=== PATIENT | male | born 1940 | race Caucasian/White ===

== ENCOUNTER → 2017-01-05 | Day surgery (SDC) | payer OTHER ==
[~2017-01-05] VITALS: Ht 175.3 cm; Wt 75.5 kg
[~2017-01-05] MED LIST: ACETAMINOPHEN 325 MG TAB PO PRN; ASCA500 PO; ATROPINE SULFATE 0.1 MG/ML 5ML SYR IV PRN; CALC-388 PO; FENTANYL CITRATE INJ 50 MCG/1 ML 2 ML VIAL ONE; FLUT0.15 INH; Garlic PO; HEPARIN SOD (PORCINE) 1000 UNIT/ML 10 ML VIAL ONE; LACT12CR TOP; LATA0.5S OP; MIDAZOLAM HCL 1 MG/ML 2ML VIAL ONE; MULTTAB58 PO; NITROGLYCERIN/D5W 100MCG/ML 20ML SYR ONE; NiCARDipine HCL INJ 2.5 MG/ML 10 ML AMP ONE; PRAV20TA PO; SODIUM CHLORIDE 0.9% 1000ML 1,000 ML IV SCH; SODIUM CHLORIDE 0.9% 1000ML 250 ML IV PRN
[2017-01-05 07:23] VITALS: BP 152/85; PULSE 70; TEMP 36.2; O2SAT 98; Ht 175.3 cm; Wt 75.5 kg
--- NOTE | 2017-01-05 09:00 | History & Physical Bridge Note ---
H&P Re-Evaluation Bridge Note: I have examined the patient, reviewed the History & Physical and in the interval since the performance of the History & Physical I have noted the following changes of clinical significance: No changes noted
--- NOTE | 2017-01-05 09:01 | Procedure Note ---
Pre-Mod Sedation Assessment General Date of Moderate Sedation: Jan 05, 2017. Vital Signs: Vital Signs Past 12 Hours Date Time Temp Pulse Resp B/P (MAP) Pulse Ox O2 Delivery O2 Flow Rate FiO2 01/05/17 07:23 36.2 70 16 152/85 98 Room Air Review Cardiovascular: regular rate, rhythm, no edema, no gallop, no murmur Abdomen: normal bowel sounds Lungs: lungs clear Airway Class: II Pre-Sedation Airway Assessment Oral Cavity: WNL Able to Visualize Vocal Cords: Yes Short Thick Neck: No Hx of Sleep Apnea: No Smoking Status: Never Smoker Mallampati Classification: Class II ASA Classification: Class II Procedure Planning Contraindications-for Mod Sed: None Notes The planned sedation has been discussed with the patient and consent obtained. I have identified the patient, determined the appropriateness of sedation and have assessed the patient immediately prior to the procedure. All medicine(s) and interventions are by my order.
--- NOTE | 2017-01-05 09:18 | [facility] Post Operative Brief Note ---
Preliminary Procedure Note Procedure Date Jan 05, 2017. Pre-Procedure Diagnosis Angina AUC Score 7 Post-Procedure Diagnosis Normal Coronary Arteries Procedure(s) Performed Coronary Angiography, Left Heart Cath, LV Angiography Fur Feeder Dr. Burak Ruiz Dj Instructor(s) Lulu Santos Estimated Blood Loss None Medication(s) Fentanyl (12.5 mcg IV), Heparin (5000u IV), Nicardipine (300mcg intraarterial after sheath), Versed (1mg IV), Lidocaine 1% (local infiltration) Preliminary Findings Right dominant coronary anatomy Small left coronary system Type 1 LAD with moderate sized D2 Ramus moderate LCX very small with single high marginal RCA Very large and dominant with large PDA and PV reaching well around the apex No coronary artery disease LV normal EF 65% Recommendations Medical therapy and/or Counseling Specimens None Fluids (cc crystalloids) 75 Procedural Complication(s) None Disposition [facility] Holding/Recovery
--- NOTE | 2017-01-05 11:04 | CARDIAC CATH REPORT ---
DATE OF PROCEDURE: 01/05/2017. REFERRING: Dr. Montes De Oca. PRIMARY CARE PHYSICIAN: Dr. Figueroa. INDICATIONS: Chest pain, familial history of myocardial infarction. PROCEDURE: Left heart catheterization, coronary LV artery angiography via right radial approach. BRIEF CARDIAC HISTORY: The patient is a 76-year-old male with a familial history of coronary artery disease and infarct related myocardial infarction and of brother recent the patient has been experiencing exertional chest pain and dyspnea in class 2-3+ category with increasing symptoms and severity. He is referred now for diagnostic cardiac catheterization. ACCESS: Right radial artery. CATHETERS: A 6-[place] long glide sheath, 5-[place] brachial 3.5, 5-[place] straight pigtail. CONTRAST: Nonionic 115 mL Visipaque. IV FLUIDS: 70 mL normal saline. SEDATION: The patient received 1 mg IV Versed and 12.5 mcg fentanyl with start time of 8:34 and end time of 8:55. CARDIAC MEDICATIONS: The patient had local infiltration access site with 1% lidocaine. After arterial sheath inserted patient received 300 mcg intra-arterial injection of nicardipine. After central access gained, 5000 units IV heparin was given. COMPLICATIONS: None. RADIATION EXPOSURE: 5.4 minutes of fluoroscopy with 1091 milligrays, DAP score 72-91. RESULTS: CORONARY ANGIOGRAPHY: The patient has a right dominant coronary anatomy. Left coronary anatomy is modest to small in caliber: LEFT MAIN: Left main is short and trifurcates to give rise to left anterior descending and a moderate size ramus intermedius and a small left circumflex. There is minimal calcification left main and no coronary artery disease. LEFT ANTERIOR DESCENDING: Left anterior descending is a type 1 in distribution. Gives rise to a large septal branch in its proximal third, a small diagonal shortly after the septal branch and a moderate size diagonal in the mid portion. Left anterior descending descends past the second diagonal only very small in caliber and does not reach the apex. The diagonal parallels the LAD and is larger in caliber. There is no disease in the left anterior descending. RAMUS INTERMEDIUS: This is a moderate caliber vessel which bifurcates and is free of disease. LEFT CIRCUMFLEX: Left circumflex is very small and diminutive in size and distribution and gives rise to a small caliber high marginal branch shortly after his origin and then bifurcates into 2 small posterior ventricular branches. RIGHT CORONARY ARTERY: The right coronary is very large in caliber and long in distribution. It gives rise to a sinoatrial branch shortly after its origin, a small acute marginal branch and at the AV groove a long posterior descending artery which reaches well beyond the apex then continues along the AV groove as a long bifurcating posterior ventricular branch with branches post-ventricular branch also reaching well beyond the apex. There is no disease in the right coronary artery. LEFT VENTRICULAR ANGIOGRAPHY: The left ventricle was nondilated. LV systolic function was normal, EF 65%. There were no wall motion abnormalities. The aortic root was normal in size. There is no mitral insufficiency. HEMODYNAMICS: Initial aortic root pressure is 143/66 with a mean of 97. LV pressure was 152/2, end diastolic pressure of 10. Following LV angiography, LV pressure was 154/16. On pullback to the aortic root, there is no transaortic valve. Closing aortic pressure was 157/76, mean of 111. FINAL IMPRESSIONS: 1. Right dominant coronary anatomy with diminutive left coronary system. 2. No coronary artery disease. 3. Normal hyperdynamic left ventricular function, ejection fraction 65%. 4. Mild systolic hypertension. RECOMMENDATIONS: Continued medical management and risk factor modification.
--- NOTE | 2017-01-05 11:31 | Discharge Instructions ---
Discharge Instructions Procedure Procedure Date: Jan 05, 2017. Reason for Visit: Left Heart Cath , Abnormal Stress Test Dr. Ruiz. Discharge Discharge Date: Jan 05, 2017. Discharge Diagnosis: Right dominant coronary anatomy without coronary artery disease Last Recorded Wt (Kilograms): 75.5 Anesthesia Post Anesthesia Instructions: If you have had General Anesthesia or IV Sedation: * Do not drive today. * Resume driving when surgeon permits. * Do not make important decisions or sign legal documents today. * Call surgeon for: 1. Temperature elevations greater than 101 degrees F. 2. Uncontrollable pain. 3. Excessive bleeding. 4. Persistent nausea and vomiting. 5. Medication intolerance (nausea, vomiting or rash). * For nausea and vomiting use only clear liquids such as: tea, soda, bouillon until nausea subsides, then gradually increase diet as tolerated. * If you have any concerns or questions, call your surgeon's office. If physician is unavailable and it is an emergency, call 911 or go to the nearest emergency room. Instructions Activity Recommendations: limitations as noted below Recommended Home Diet: resume previous diet Allergies: Coded Allergies: No Known Allergies (Unverified , 10/04/15) Provider Instructions ACTIVITY RECOMMENDATIONS: Excess manipulation of the wrist should be avoided for the next 24-48 hours. * No lifting over 2 pounds (approximately a 1/2 gallon of milk) with the utilized arm for 24 hours. * No strenuous activity such as bowling or tennis for 3 days. * Keep the site of the procedure covered with a bandage for 24 hours. *You may shower the day after the procedure. Do not take a tub bath or submerge the puncture site in water for the next 3 days. *Do not operate any motorized equipment for 3 days. SPECIAL CARE INSTRUCTIONS: The site may be slightly bruised and sore following your procedure. Should any of the following occur, contact the Dr. who performed your procedure. 1. Redness/inflammation, swelling, chills, or fever, or colored drainage at procedure site within 3-7 days after your procedure. 2. Coldness, discoloration, ongoing numbness, severe pain, or swelling. Expect mild tingling of hand and tenderness at the puncture site for up to three days. If this persists beyond three days, or other symptoms develop, notify the Dr. who performed your procedure. BLEEDING: If the procedure site on your wrist begins to bleed, do not panic 1. Place 1 or 2 fingers firmly just slightly above the insertion site to stop the bleeding. You may be able to feel your pulse as you hold pressure. 2. Lift your finger after 5 minutes to see if the bleeding has stopped. 3. Once the bleeding has stopped, gently wipe the wrist area clean with a bandage. * If the bleeding from your wrist does not stop after 10 minutes, or if there is a large amount of bleeding or spurting, call 911 (do not drive yourself to the hospital). SKIN IRRITATION: * You may experience some redness and/or swelling in the area where radiation was administered. If any skin irritation occurs, please contact your family physician. FOLLOW UP VISIT: Keep any scheduled doctor appointments. Follow Up Follow-up with: Dr Montes De Oca as scheduled Vidya Hickey Recommendations: Call your doctor if: * Temperature above 101 degrees * Pain not relieved by pain medicine ordered * There is increased drainage or redness from any incision * You have any unanswered questions or concerns. Your Doctors Instructions noted above were prepared by provider Burak Ruiz. Patient Signature Section: Patient Instructions Signature Page Victorino Guevara Patient (or Guardian) Signature/Date: I have read and understand the instructions given to me by my caregivers. Caregiver/RN/Doctor Signature/Date: The above-named patient and/or guardian has received patient instructions on this date. + Original Patient Signature Page (only) stays with chart. Please make copy for patient.
[2017-01-05 11:55] VITALS: BP 132/56; PULSE 64; O2SAT 96
== END | disposition home or self-care (01) ==
LOC: C.CATH 06:53
PROVIDERS: ATTEND Internal Medicine Cardiovascular Disease
DX: R94.39 Abnormal result of other cardiovascular function study (principal); R07.9 Chest pain, unspecified; Z82.49 Family history of ischemic heart disease and other diseases of the circulatory system; E78.5 Hyperlipidemia, unspecified; Z86.010 Personal history of colon polyps

== ENCOUNTER 2022-05-17 20:05 | Inpatient (IN) ==
[2022-05-17 21:18] LABS: Albumin Globulin Ratio 1.1 (0.9-2); BUN Creatinine Ratio 13.6 (10-20); Bilirubin,Total 0.9 mg/dl (0.2-1.0); Calcium 9.3 mg/dl (8.5-10.1); Est GFR (African American) 58.6 ml/min; Est GFR (Non-African American) 50.6 ml/min; Globulin 3.8 gm/dl (2.5-4.0); Potassium 4.7 mmol/L (3.5-5.1); Total Protein 7.8 gm/dl (6.0-8.3)
[2022-05-17 21:23] LABS: Hemoglobin 17.1 g/dl (14.0-18.0); Mean Corpuscular Hemoglobin 30.9 pg (25.0-34.0); Mean Corpuscular Hgb Conc 33.5 g/dL (32.0-36.0); Mean Corpuscular Volume 92.2 fL (80.0-100.0); Mean Platelet Volume 9.7 fL (9.4-12.4); Platelet Count 284 K/uL (130-400); RDW Coefficient of Variation 12.5 % (11.5-14.5); RDW Standard Deviation 42.5 fL (36.4-46.3); Red Blood Count 5.53 M/uL (4.63-6.08); White Blood Count 14.15 K/ul (4.8-10.8)
[2022-05-17 21:32] LABS: Troponin I High Sensitivity 250.3 pg/ml (0-20)
[2022-05-17 22:07] LABS: Basophils # (auto) 0.03 K/uL (0-0.2); Basophils % (auto) 0.2 %; Immature Granulocytes # (auto) 0.06 K/uL (0.00-0.02); Immature Granulocytes % (auto) 0.4 %; Lymphocytes # (auto) 0.64 K/uL (1.2-3.4); Lymphocytes % (auto) 4.5 %; Monocytes # (auto) 0.57 K/uL (0.24-0.82); Neutrophils # (auto) 12.85 K/uL (1.4-6.5); Neutrophils % (auto) 90.9 %
[2022-05-17] MEDS ORDERED: SODIUM CHLORIDE 0.9% 1000ML 1,000 ML IV ONE (22:32)
[2022-05-17] MEDS ORDERED: CARBIDOPA/LEVODOPA 25/100MG TAB PO SCH (22:35)
[2022-05-17 23:01] LABS: Influenza A virus by PCR Negative (Neg); Influenza B virus by PCR Negative (Neg); RSV by PCR Negative (Neg); SARS CoV2 RNA(COVID-19) Ceph NEGATIVE (Negative)
[2022-05-17 23:18] LABS: Lipase < 3 U/L (11-82); Magnesium 2.1 mg/dl (1.7-2.4); Phosphorus 3.3 mg/dl (2.5-4.9)
[2022-05-18] MEDS ORDERED: OPTIRAY 320 500ml IV ONE (00:19)
[2022-05-18] MEDS ORDERED: Heparin IV Adult Wt-Based Standard WITH Bolus Protocol IV STA (01:20)
[2022-05-18] MEDS ORDERED: HEPARIN SOD (PORCINE) 1000 UNIT/ML IV ONE (01:36)
[2022-05-18] MEDS ORDERED: ONDANSETRON INJ 2 MG/ML 2 ML VIAL IV STA (01:37)
[2022-05-18] MEDS ORDERED: ACETAMINOPHEN 1,000 MG/100 ML VIAL IV STA (01:37)
[2022-05-18] MEDS ORDERED: FAMOTIDINE 20MG IV PUSH 20 MG/5 ML SYR IV STA (01:37)
[2022-05-18] MEDS ORDERED: LACTATED RINGER'S 1,000 ML IV SCH (01:45)
--- NOTE | 2022-05-18 01:50 | History & Physical Report ---
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 ( has expressed interest in NOAC Rx for patient upon discharge.) Bowel rest, continue NGT decompression Surgery consult Re: Bowel obstruction DVT prophylaxis. IV heparin Full code as per , Ms. Edda Guevara. She requests updates from providers through [phone]. Family requesting for patient to be set up with [facility] provider or PCP upon discharge. Patient will not be able to follow-up with former PCP Dr. Figueroa at [address] [place] [address] as per . Text document was generated using [employer] voice recognition software. It may contain grammatical or spelling errors. Kindly contact undersigned for clarification of any documentation item in question. History of Present Illness Chief Complaint: Abdominal pain Primary Care Provider: Oleksandr Figueroa, History obtained from patient, family, and records. 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 Last bowel movement was 2 days ago as per . Increasing weakness last night with slight confusion. Patient denies chest pain, SOB. Does not move a lot as per secondary to Parkinson's disease. Patient brought to the ER for evaluation. NGT inserted for bowel obstruction. IV heparin initiated for pulmonary embolism. 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 Allergies Allergy/AdvReac Type Severity Reaction Status Date / Time No Known Allergies Allergy Verified 05/18/22 02:11 Home Medications Medication Instructions Recorded Confirmed Type ascorbic acid (vitamin C) 500 mg 500 mg PO DAILY 03/08/20 05/18/22 History tablet (Vitamin C) calcium carbonate 500 mg calcium 500 mg PO DAILY 01/17/22 05/18/22 History (1,250 mg) tablet fish, borage, flaxseed oils-omega 1 cap PO DAILY 01/17/22 05/18/22 History 3,6,9 comb no.1 1,200 mg capsule ([place] 3-6-9) latanoprost 0.005 % eye drops 1 drp OPB HS 01/17/22 05/18/22 History stzqalupiltu-wvt-oinus acid-vit 1 tab PO DAILY 01/17/22 05/18/22 History K-lycop 400 mcg-20 mcg-370 mcg tablet (Men's 50 Plus Multivitamin) omeprazole 20 mg capsule,delayed 20 mg PO DAILYBB 01/17/22 05/18/22 History release saw palmetto 450 mg capsule 0 mg PO DAILY 01/17/22 05/18/22 History suvorexant 5 mg tablet (Belsomra) 5 mg PO HS PRN Insomnia 01/17/22 05/18/22 History carbidopa 25 mg-levodopa 100 mg 2 tab PO TID 05/18/22 05/18/22 History tablet carbidopa ER 25 mg-levodopa 100 mg 1 tab PO HS 05/18/22 05/18/22 History tablet,extended release polyethylene glycol 3350 17 gram 17 g PO DAILY 05/18/22 05/18/22 History oral powder packet (Miralax) sennosides 8.6 mg tablet (senna) 8.6 mg PO DAILY 05/18/22 05/18/22 History trazodone 50 mg tablet 50 mg PO DAILY 05/18/22 05/18/22 History Past Med/Surg History Medical History CKD (chronic kidney disease) stage 3, GFR 30-59 ml/min HLD (hyperlipidemia) No pertinent family history Parkinson disease Prediabetes Surgical History S/P appendectomy Family History Other Family history non-contributory Social History Smoking Status: Unknown if ever smoked Preferred Language: Setswana Current Living Situation[facility] Comment[facility]: Yes Safety Concerns: Feels Safe At This Time Review of Systems Review of Systems: As per HPI, all other systems reviewed and negative Physical Exam Physical Exam: GENERAL: Slightly uncomfortable, slightly hard of hearing, no respiratory distress SKIN: Normal color, warm HEENT: [place] palpebral conjunctivae, no ptosis, dry buccal mucosa, NGT in place NECK : Supple, no tenderness CHEST : CTA, no tenderness HEART : RRR, no obvious murmurs ABDOMEN: Some distention, central abdominal tenderness EXTREMITIES : Minimal LE swelling (right greater than the left ) without tenderness, no other conspicuous deformities noted NEUROLOGIC : Coherent, no facial asymmetry, slightly hard of hearing, pill- rolling tremors, bradykinesia, gait and stance not assessed Results & Data Results & Data ([facility]) Vital Signs (Past 12 Hours) Vital Signs Temp Pulse Resp BP Pulse Ox O2 Del Method 05/18/22 01:00 87 14 167/94 H 100 05/18/22 00:30 108 H 20 170/90 H 99 05/17/22 23:30 88 16 151/99 H 100 05/17/22 23:00 90 17 148/99 H 100 05/17/22 22:30 140/96 05/17/22 22:00 88 16 146/94 H 100 05/17/22 21:30 91 H 15 160/93 H 100 05/17/22 21:00 96 H 16 143/89 H 100 05/17/22 20:41 92 H 15 144/95 H 100 05/17/22 20:14 37 C 102 H 18 139/94 100 Room Air Laboratory Results Laboratory Results WBC 14.15 K/ul (4.8-10.8) H 05/17/22 20:20 RBC 5.53 M/uL (4.63-6.08) 05/17/22 20:20 Hgb 17.1 g/dl (14.0-18.0) 05/17/22 20:20 Hct 51.0 % (40.1-51.0) 05/17/22 20:20 MCV 92.2 fL (80.0-100.0) 05/17/22 20:20 MCH 30.9 pg (25.0-34.0) 05/17/22 20:20 MCHC 33.5 g/dL (32.0-36.0) 05/17/22 20:20 RDW Std Deviation 42.5 fL (36.4-46.3) 05/17/22 20:20 RDW Coeff of Jm 12.5 % (11.5-14.5) 05/17/22 20:20 Plt Count 284 K/uL (130-400) 05/17/22 20:20 MPV 9.7 fL (9.4-12.4) 05/17/22 20:20 Immature Gran % (Auto) 0.4 % 05/17/22 20:20 Neut % (Auto) 90.9 % 05/17/22 20:20 Lymph % (Auto) 4.5 % 05/17/22 20:20 [place] % (Auto) 4.0 % 05/17/22 20:20 Eos % (Auto) 0.0 % 05/17/22 20:20 Baso % (Auto) 0.2 % 05/17/22 20:20 Neut # (Auto) 12.85 K/uL (1.4-6.5) H 05/17/22 20:20 Lymph # (Auto) 0.64 K/uL (1.2-3.4) L 05/17/22 20:20 [place] # (Auto) 0.57 K/uL (0.24-0.82) 05/17/22 20:20 Eos # (Auto) 0.00 K/uL (0-0.50) 05/17/22 20:20 Baso # (Auto) 0.03 K/uL (0-0.2) 05/17/22 20:20 Immature Gran # (Auto) 0.06 K/uL (0.00-0.02) H 05/17/22 20:20 Sodium 139 mmol/L (136-145) 05/17/22 20:20 Potassium 4.7 mmol/L (3.5-5.1) 05/17/22 20:20 Chloride 103 mmol/L (98-107) 05/17/22 20:20 Carbon Dioxide 27 mmol/L (21-32) 05/17/22 20:20 Anion Gap 9 (3-11) 05/17/22 20:20 BUN 18 mg/dl (6-23) 05/17/22 20:20 Creatinine 1.32 mg/dl (0.6-1.4) 05/17/22 20:20 Est Cr Clr Drug Dosing 40.0 ml/min 05/17/22 20:20 Est GFR ( Amer) 58.6 ml/min 05/17/22 20:20 Est GFR (Non-Af Amer) 50.6 ml/min 05/17/22 20:20 BUN/Creatinine Ratio 13.6 (10-20) 05/17/22 20:20 Glucose 180 mg/dl (70-99(Fasting)) H 05/17/22 20:20 Calcium 9.3 mg/dl (8.5-10.1) 05/17/22 20:20 Phosphorus 3.3 mg/dl (2.5-4.9) 05/17/22 20:20 Magnesium 2.1 mg/dl (1.7-2.4) 05/17/22 20:20 Total Bilirubin 0.9 mg/dl (0.2-1.0) 05/17/22 20:20 AST 20 U/L (13-39) 05/17/22 20:20 ALT 7 U/L (7-52) 05/17/22 20:20 Alkaline Phosphatase 69 U/L (34-104) 05/17/22 20:20 Troponin I High Sens 250.3 pg/ml (0-20) H* D 05/17/22 20:20 Total Protein 7.8 gm/dl (6.0-8.3) 05/17/22 20:20 Albumin 4.0 gm/dl (3.4-5.0) 05/17/22 20:20 Globulin 3.8 gm/dl (2.5-4.0) 05/17/22 20:20 Albumin/Globulin Ratio 1.1 (0.9-2) 05/17/22 20:20 Lipase < 3 U/L (11-82) L 05/17/22 20:20 TSH 3.143 uIu/ml (0.300-4.500) 05/17/22 20:20 SARS-CoV-2 (PCR) NEGATIVE (Negative) 05/17/22 Unknown Influenza Type A (PCR) Negative (Neg) 05/17/22 Unknown Influenza Type B (PCR) Negative (Neg) 05/17/22 Unknown RSV (RT-PCR) Negative (Neg) 05/17/[address] head initial read: There is an old right cerebellar infarct. There is mild atrophy. No evidence for acute intracranial hemorrhage or transcortical infarct. CT chest initial read: There is extensive pulmonaryemboluswithin the right main pulmonaryarterywith components extending to superior, middle, and inferior branches. The right heart is mildlydilated and correlation with anyconcern for right heart strain is recommended. There is small volume asciteswhich is partiallyvisualized CT abdomen pelvis initial read: There is a severe small bowel obstruction with 2 focal points of narrowing noted (image 48 series 8 and image 51 series 8); this raises concern for a closed-loop obstruction. There is significant wall thickening of multiple loops of adjacent small bowel without discrete pneumatosis. There is moderate free fluid in the abdomen and pelviswhich is likelyreactive. EKG as per my interpretation :Rate 95, NSR, LAD, LAFB, no ischemia, PVCs
[2022-05-18] MEDS ORDERED: SODIUM CHLORIDE 0.9% 1000ML 1,000 ML IV ONE (01:51)
--- NOTE | 2022-05-18 02:16 | Emergency Department Note ---
Impression & Plan Pulmonary embolism, SBO (small bowel obstruction), Elevated troponin, Parkinson disease ED Provider Note NAME: DAVID DELGADO III AGE: 82 SEX: M ARRIVES VIA: Ambulance INFORMANT: Patient ED PROVIDER(S): Rock Barry MD CHIEF COMPLAINT: Chest pain PLAN: Disposition: Admit MEDICAL DECISION MAKING: The patient is a pleasant 82-year-old gentleman with a past medical history of Parkinson's, GERD, constipation who presents to the emergency department via EMS and then accompanied by his for evaluation of generalized weakness in the setting of reporting chest pain and abdominal pain this morning. The patient's reports she suspected this was related to his acid reflux and so he received his antacids and seemed to have some improvement but was weaker than usual and napping most of the day. She reports she went to get him up to walk into the kitchen but his legs were so weak that he slowly lowered to the ground and she was unable to keep him on his feet. She reports he lowered to the ground in a controlled manner as she was supporting him and so did not fall abruptly. She reports he is more fatigued with increased malaise than normal even with his Parkinson's. She denies any recent fevers, chills, cough, congestion. For constipation he has been taking MiraLAX and senna. He did move his bowels yesterday. On arrival the patient is fatigued but no acute distress, afebrile with stable vital signs. He appears clinically dry. Abdomen is soft with mild epigastric discomfort without discrete tenderness. EKG without overt acute ischemia. Chest x-ray negative for acute cardiopulmonary process per my preliminary review. WBC 14K nonspecific. H/H , consistent with patient's clinically dry appearance. Plateletes wnl. Chemistry without metabolic acidosis. Electrolytes without significant abnormality. LFTs are unremarkable. Lipase is not elevated. TSH within normal limits. High-sensitivity troponin was 250, nonspecific. Covid-19 PCR negative. Influenza and RSV PCR negative. CT of the head and CTA of the chest as well as CT of the abdomen pelvis were performed. Per preliminary stat read report findings of the CT of the chest demonstrate extensive pulmonary embolus within the right main pulmonary artery with components extending into the superior medial inferior branches. Note is made of mildly dilated right heart however the patient is hemodynamically stable. CT abdomen pelvis also demonstrates evidence of severe small bowel obstruction with 2 focal points of narrowing that are noted that raises the possibility of closed-loop obstruction. There is significant wall thickening of multiple loops of bowel but no discrete pneumatosis. There is moderate free fluid in the abdomen pelvis which is likely reactive. CT of the head demonstrates old right cerebellar infarct and mild atrophy but no acute findings. Upon reevaluation the patient was resting comfortably. Upon reexamination of his abdomen he had mild tenderness upon deep palpation but his abdomen is soft. He has had no vomiting during his emergency department visit and prior to CT imaging he had been given his oral dose of his Sinemet which he tolerated without difficulty. Thus, do not suspect closed-loop bowel obstruction at this time. I did review his results in detail with the patient and his . They do agree with plan for nasogastric tube as they would prefer to avoid any surgery if possible. She further adds that they do have an advanced directive but concurs that he would not want CPR. There is no known history of bleeding concerns and so heparin bolus and drip ordered to be initiated following placement of nasogastric tube. I did review his findings regarding a prior right cerebellar infarct and she reports that they were never aware of a prior stroke. She agrees that any symptoms related to this may have been masked by his chronic gait instability in the setting of his Parkinson disease. They agree with plan for admission for further management. [facility]. NG tube successfully placed and confirmed on KUB per my preliminary review. Triage Nursing notes reviewed and agree them. Prior medical records reviewed Vital Signs: reviewed Differential diagnosis: Cardiac ischemia, aortic dissection, pulmonary embolism, pneumothorax, pneumonia, pericarditis, myocarditis, esophageal rupture, GERD, cholecystitis, pancreatitis, musculoskeletal, as well as other pathologies. ER treatment provided: See below. Diagnostics interpreted by me: ECG: Sinus rhythm with PVCs, 95 bpm, no overt ST elevation or depression, QTC 427, QRS 72. Cardiac Monitoring: An order for continuous cardiac monitoring was placed and demonstrate Sinus rhythm with PVCs, 95 bpm Laboratory studies: See below Imaging studies: See below Consultation(s): [facility]. HPI: The patient is a pleasant 82-year-old gentleman with a past medical history of Parkinson's, GERD, constipation who presents to the emergency department via EMS and then accompanied by his for evaluation of generalized weakness in the setting of reporting chest pain and abdominal pain this morning. The patient's reports she suspected this was related to his acid reflux and so he received his antacids and seemed to have some improvement but was weaker than usual and napping most of the day. She reports she went to get him up to walk into the kitchen but his legs were so weak that he slowly lowered to the ground and she was unable to keep him on his feet. She reports he lowered to the ground in a controlled manner as she was supporting him and so did not fall abruptly. She reports he is more fatigued with increased malaise than normal ev en with his Parkinson's. She denies any recent fevers, chills, cough, congestion. For constipation he has been taking MiraLAX and senna. He did move his bowels yesterday. ROS: See above HPI for pertinent positives & negatives. A total of 10 systems reviewed and were otherwise negative. VITALS:See Below PHYSICAL EXAMINATION: GENERAL: Awake, alert, fatigued-appearing, in no distress HENT: Normocephalic, atraumatic. Oropharynx with dry mucous membranes and otherwise unremarkable. EYES: Normal conjunctiva. Sclera non-icteric. NECK: Supple. No nuchal rigidity. FROM. No JVD. RESPIRATORY: Clear to auscultation. CARDIAC: Regular rate, normal rhythm. Extremities warm and well perfused. Pulses equal. ABDOMEN: Soft, non-distended. Mild epigastric discomfort without discrete tenderness. No rebound or guarding. No masses. RECTAL: Deferred. MUSCULOSKELETAL: Chest examination reveals no tenderness. The back is symmetr ical on inspection without obvious abnormality. There is no CVA tenderness to palpation. No joint edema. LOWER EXTREMITIES: Calves are equal size bilaterally and non-tender. No edema. No discoloration. NEURO: Normal sensorium. No sensory or motor deficits noted. SKIN: No rash or jaundice noted. ED COURSE: Critical Care: I have personally spent greater than 75 minutes of critical care time in the direct management of this patient. This includes bedside care, interpretation of diagnostic studies, and testing, discussion with consultants, patient, and family members, and other required patient management activities. This 75 minutes is in excess of all separately billable procedures. Rock Barry MD Past Med/Surg History Medical History CKD (chronic kidney disease) stage 3, GFR 30-59 ml/min HLD (hyperlipidemia) No pertinent family history Parkinson disease Prediabetes Surgical History S/P appendectomy Family History Other Family history non-contributory Social History Smoking Status: Never smoker Preferred Language: Citizen Of [place] Feels Safe at Home: Yes Allergies Allergies Allergy/AdvReac Type Severity Reaction Status Date / Time No Known Allergies Allergy Verified 05/18/22 02:11 Home Meds Home Medications Medication Instructions Recorded Confirmed ascorbic acid (vitamin C) 500 mg 500 mg PO DAILY 03/08/20 05/18/22 tablet (Vitamin C) calcium carbonate 500 mg calcium 500 mg PO DAILY 01/17/22 05/18/22 (1,250 mg) tablet fish, borage, flaxseed oils-omega 1 cap PO DAILY 01/17/22 05/18/22 3,6,9 comb no.1 1,200 mg capsule (Ellsworth 3-6-9) latanoprost 0.005 % eye drops 1 drp OPB HS 01/17/22 05/18/22 [id number] acid-vit 1 tab PO DAILY 01/17/22 05/18/22 K-lycop 400 mcg-20 mcg-370 mcg tablet (Men's 50 Plus Multivitamin) omeprazole 20 mg capsule,delayed 20 mg PO DAILYBB 01/17/22 05/18/22 release saw palmetto 450 mg capsule 0 mg PO DAILY 01/17/22 05/18/22 suvorexant 5 mg tablet (Belsomra) 5 mg PO HS PRN Insomnia 01/17/22 05/18/22 carbidopa 25 mg-levodopa 100 mg 2 tab PO TID 05/18/22 05/18/22 tablet carbidopa ER 25 mg-levodopa 100 mg 1 tab PO HS 05/18/22 05/18/22 tablet,extended release polyethylene glycol 3350 17 gram 17 g PO DAILY 05/18/22 05/18/22 oral powder packet (Miralax) sennosides 8.6 mg tablet (senna) 8.6 mg PO DAILY 05/18/22 05/18/22 trazodone 50 mg tablet 50 mg PO DAILY 05/18/22 05/18/22 Results & Data (ED) Vital Signs Vital Signs - 24 hr 05/17/22 20:14 05/17/22 20:41 05/17/22 21:00 Temperature 37 C Temperature Source Oral Pulse Rate 102 H 92 H 96 H Pulse Rate [Finger] Pulse Rate from SpO2 Sensor 95 H 96 H Pulse Rhythm Regular Pulse Rhythm [Finger] Pulse Strength Normal Respiratory Rate 18 15 16 Respiratory Effort / Characteristics Non-Labored Spontaneous Respiratory Depth Normal Respiratory Pattern Regular Blood Pressure 139/94 144/95 H 143/89 H Blood Pressure [Right Arm] Blood Pressure Mean 109 111 107 Blood Pressure Mean [Right Arm] Blood Pressure Position Sitting Pulse Oximetry 100 100 100 Oxygen Delivery Method Room Air Sepsis Recent Fever Within 48 Hours No Sepsis New/Unexplained Change in Mental Status N/A Sepsis Action Taken by Nursing No Action Required 05/17/22 21:30 05/17/22 22:00 05/17/22 22:30 Temperature Temperature Source Pulse Rate 91 H 88 Pulse Rate [Finger] Pulse Rate from SpO2 Sensor 91 H 87 Pulse Rhythm Pulse Rhythm [Finger] Pulse Strength Respiratory Rate 15 16 Respiratory Effort / Characteristics Respiratory Depth Respiratory Pattern Blood Pressure 160/93 H 146/94 H 140/96 Blood Pressure [Right Arm] Blood Pressure Mean 115 111 110 Blood Pressure Mean [Right Arm] Blood Pressure Position Pulse Oximetry 100 100 Oxygen Delivery Method Sepsis Recent Fever Within 48 Hours Sepsis New/Unexplained Change in Mental Status Sepsis Action Taken by Nursing 05/17/22 23:00 05/17/22 23:30 05/18/22 00:30 Temperature Temperature Source Pulse Rate 90 88 108 H Pulse Rate [Finger] Pulse Rate from SpO2 Sensor 88 85 81 Pulse Rhythm Pulse Rhythm [Finger] Pulse Strength Respiratory Rate 17 16 20 Respiratory Effort / Characteristics Respiratory Depth Respiratory Pattern Blood Pressure 148/99 H 151/99 H 170/90 H Blood Pressure [Right Arm] Blood Pressure Mean 115 116 116 Blood Pressure Mean [Right Arm] Blood Pressure Position Pulse Oximetry 100 100 99 Oxygen Delivery Method Sepsis Recent Fever Within 48 Hours Sepsis New/Unexplained Change in Mental Status Sepsis Action Taken by Nursing 05/18/22 01:00 05/18/22 01:30 05/18/22 02:00 Temperature Temperature Source Pulse Rate 87 89 Pulse Rate [Finger] Pulse Rate from SpO2 Sensor 85 84 91 H Pulse Rhythm Pulse Rhythm [Finger] Pulse Strength Respiratory Rate 14 20 Respiratory Effort / Characteristics Respiratory Depth Respiratory Pattern Blood Pressure 167/94 H 155/87 H 137/93 Blood Pressure [Right Arm] Blood Pressure Mean 118 109 107 Blood Pressure Mean [Right Arm] Blood Pressure Position Pulse Oximetry 100 100 99 Oxygen Delivery Method Sepsis Recent Fever Within 48 Hours Sepsis New/Unexplained Change in Mental Status Sepsis Action Taken by Nursing 05/18/22 02:31 05/18/22 03:29 Temperature 36.7 C Temperature Source Oral Pulse Rate 87 Pulse Rate [Finger] 83 Pulse Rate from SpO2 Sensor 86 Pulse Rhythm Pulse Rhythm [Finger] Regular Pulse Strength Respiratory Rate 16 17 Respiratory Effort / Characteristics Non-Labored Spontaneous Respiratory Depth Normal Respiratory Pattern Blood Pressure 151/95 H Blood Pressure [Right Arm] 143/98 H Blood Pressure Mean 113 Blood Pressure Mean [Right Arm] 113 Blood Pressure Position Pulse Oximetry 100 98 Oxygen Delivery Method Room Air Sepsis Recent Fever Within 48 Hours Sepsis New/Unexplained Change in Mental Status Sepsis Action Taken by Nursing Laboratory Data Attestation: I reviewed the patient's lab results. Result diagrams: 05/17/22 20:20 05/17/22 20:20 Lab Results 05/17/22 05/17/22 05/17/22 Range/Units 20:20 20:20 20:20 WBC 14.15 H (4.8-10.8) K/ul RBC 5.53 (4.63-6.08) M/uL Hgb 17.1 (14.0-18.0) g/dl Hct 51.0 (40.1-51.0) % MCV 92.2 (80.0-100.0) fL MCH 30.9 (25.0-34.0) pg MCHC 33.5 (32.0-36.0) g/dL RDW Std Deviation 42.5 (36.4-46.3) fL RDW Coeff of Jm 12.5 (11.5-14.5) % Plt Count 284 (130-400) K/uL MPV 9.7 (9.4-12.4) fL Immature Gran % (Auto) 0.4 % Neut % (Auto) 90.9 % Lymph % (Auto) 4.5 % Mes[place] % (Auto) 4.0 % Eos % (Auto) 0.0 % Baso % (Auto) 0.2 % Neut # (Auto) 12.85 H (1.4-6.5) K/uL Lymph # (Auto) 0.64 L (1.2-3.4) K/uL Mes[place] # (Auto) 0.57 (0.24-0.82) K/uL Eos # (Auto) 0.00 (0-0.50) K/uL Baso # (Auto) 0.03 (0-0.2) K/uL Immature Gran # (Auto) 0.06 H (0.00-0.02) K/uL Sodium 139 (136-145) mmol/L Potassium 4.7 (3.5-5.1) mmol/L Chloride 103 (98-107) mmol/L Carbon Dioxide 27 (21-32) mmol/L Anion Gap 9 (3-11) BUN 18 (6-23) mg/dl Creatinine 1.32 (0.6-1.4) mg/dl Est Cr Clr Drug Dosing 40.0 ml/min Est GFR ( Amer) 58.6 ml/min Est GFR (Non-Af Amer) 50.6 ml/min BUN/Creatinine Ratio 13.6 (10-20) Glucose 180 H (70-99(Fasting)) mg/dl Calcium 9.3 (8.5-10.1) mg/dl Phosphorus (2.5-4.9) mg/dl Magnesium (1.7-2.4) mg/dl Total Bilirubin 0.9 (0.2-1.0) mg/dl AST 20 (13-39) U/L ALT 7 (7-52) U/L Alkaline Phosphatase 69 (34-104) U/L Troponin I High Sens 250.3 H* D (0-20) pg/ml Total Protein 7.8 (6.0-8.3) gm/dl Albumin 4.0 (3.4-5.0) gm/dl Globulin 3.8 (2.5-4.0) gm/dl Albumin/Globulin Ratio 1.1 (0.9-2) Lipase (11-82) U/L Procalcitonin (0-0.5) ng/ml TSH 3.143 (0.300-4.500) uIu/ml SARS-CoV-2 (PCR) (Negative) Influenza Type A (PCR) (Neg) Influenza Type B (PCR) (Neg) RSV (RT-PCR) (Neg) 05/17/22 05/17/22 05/17/22 Range/Units 20:20 20:20 Unknown WBC (4.8-10.8) K/ul RBC (4.63-6.08) M/uL Hgb (14.0-18.0) g/dl Hct (40.1-51.0) % MCV (80.0-100.0) fL MCH (25.0-34.0) pg MCHC (32.0-36.0) g/dL RDW Std Deviation (36.4-46.3) fL RDW Coeff of Jm (11.5-14.5) % Plt Count (130-400) K/uL MPV (9.4-12.4) fL Immature Gran % (Auto) % Neut % (Auto) % Lymph % (Auto) % Mesa % (Auto) % Eos % (Auto) % Baso % (Auto) % Neut # (Auto) (1.4-6.5) K/uL Lymph # (Auto) (1.2-3.4) K/uL Mes[place] # (Auto) (0.24-0.82) K/uL Eos # (Auto) (0-0.50) K/uL Baso # (Auto) (0-0.2) K/uL Immature Gran # (Auto) (0.00-0.02) K/uL Sodium (136-145) mmol/L Potassium (3.5-5.1) mmol/L Chloride (98-107) mmol/L Carbon Dioxide (21-32) mmol/L Anion Gap (3-11) BUN (6-23) mg/dl Creatinine (0.6-1.4) mg/dl Est Cr Clr Drug Dosing ml/min Est GFR ( Amer) ml/min Est GFR (Non-Af Amer) ml/min BUN/Creatinine Ratio (10-20) Glucose (70-99(Fasting)) mg/dl Calcium (8.5-10.1) mg/dl Phosphorus 3.3 (2.5-4.9) mg/dl Magnesium 2.1 (1.7-2.4) mg/dl Total Bilirubin (0.2-1.0) mg/dl AST (13-39) U/L ALT (7-52) U/L Alkaline Phosphatase (34-104) U/L Troponin I High Sens (0-20) pg/ml Total Protein (6.0-8.3) gm/dl Albumin (3.4-5.0) gm/dl Globulin (2.5-4.0) gm/dl Albumin/Globulin Ratio (0.9-2) Lipase < 3 L (11-82) U/L Procalcitonin 0.13 (0-0.5) ng/ml TSH (0.300-4.500) uIu/ml SARS-CoV-2 (PCR) NEGATIVE (Negative) Influenza Type A (PCR) Negative (Neg) Influenza Type B (PCR) Negative (Neg) RSV (RT-PCR) Negative (Neg) Administered Medications Carbidopa/Levodopa (Carbidopa/Levodopa 25/100mg Tab) 1 tab PO QID [facility] Stop: 06/16/22 22:34 Last Admin: 05/17/22 23:36 Dose: 1 tab Documented By: JOSE Heparin Sodium/Dextrose (Heparin Sodium/Dextrose) 25,000 units in 500 mls @ 23 mls/hr IV .[id number] [facility]; Protocol Stop: 06/17/22 01:44 Last Admin: 05/18/22 02:57 Dose: 1,150 units/hr, 23 mls/hr Documented By: JOSE Co-signed By: Sodium Chloride (Nss 1000ml) 1,000 mls @ 50 mls/hr IV .Q20H ONE Stop: 05/18/22 21:50 Last Admin: 05/18/22 02:20 Dose: 50 mls/hr Documented By: JOSE Discontinued Medications Heparin Sodium (Porcine) (Heparin Sod (Porcine) 1000 Unit/Ml) 5,000 units IV 0222 STA Stop: 05/18/22 02:23 Last Admin: 05/18/22 02:56 Dose: 5,000 units Documented By: JOSE Co-signed By: Sodium Chloride (Nss 1000ml) 1,000 mls @ 999 mls/hr IV .Q1H1M ONE Stop: 05/17/22 23:32 Last Infusion: 05/18/22 00:52 Dose: 0 mls/hr Documented By: Admin: 05/17/22 23:36 Dose: 999 mls/hr Documented By: JOSE Lactated Ringer's (Lr) 1,000 mls @ 125 mls/hr IV .Q8H [facility] Stop: 06/17/22 01:44 Last Admin: 05/18/22 03:26 Dose: Not Given Documented By: YONATHAN Acetaminophen (Ofirmev) 1,000 mg in 100 mls @ 400 mls/hr IV NOW STA Stop: 05/18/22 01:51 Last Infusion: 05/18/22 03:25 Dose: 0 mls/hr Documented By: Admin: 05/18/22 02:17 Dose: 400 mls/hr Documented By: JOSE Famotidine (Pepcid 20mg Iv Push) 20 mg in 5 mls @ 2.5 mls/min IV NOW STA Stop: 05/18/22 01:38 Last Admin: 05/18/22 02:14 Dose: 2.5 mls/min Documented By: JOSE Ioversol (Optiray 320 500ml) 125 ml IV ONCE ONE Stop: 05/18/22 00:20 Last Admin: 05/18/22 00:19 Dose: 113 ml Documented By: WILMA Ondansetron HCl (Ondansetron Inj 2 Mg/Ml 2 Ml Vial) 4 mg IV NOW STA Stop: 05/18/22 01:38 Last Admin: 05/18/22 02:12 Dose: 4 mg Documented By: JOSE Imaging Data Radiologist's Impression: [facility]RAD Preliminary Findings Only See Final Report For Complete Findings CT HEAD: There is an old right cerebellar infarct. There is mild atrophy. No evidence for acute intracranial hemorrhage or transcortical infarct. Radiologist: Santiago Huang MD Study ready at 00:34 and initial results transmitted at 00:35 Preliminary Findings Only See Final Report For Complete Findings ADDENDUM - Added by Santiago Huang MD on 05/18/2022 12:45 AM (-08:00) Addendum: Additional images were provided following this dictation. These do not change the interpretation. CTA CHEST: There is extensive pulmonary embolus within the right main pulmonary artery with components extending to superior, middle, and inferior branches. The right heart is mildly dilated and correlation with any concern for right heart strain is r ecommended. There is small volume ascites which is partially visualized. Radiologist: Santiago Huang MD Study ready at 00:35 and initial results transmitted at 00:37 Communications: Clear Time Type Notes 05/18/22 00:49 Call Doctor Regarding Pul monary Embolism, called Dr. Barry on 05/18 00:49 (-05:00) -- Preliminary Findings Only See Final Report For Complete Findings CT ABDOMEN & PELVIS With Contrast: There is a severe small bowel obstruction with 2 focal points of narrowing noted (image 48 series 8 and image 51 series 8); this raises concern for a closed-loop obstruction. There is significant wall thickening of multiple loops of adjacent small bowel without discrete pneumatosis. There is moderate free fluid in the abdomen and pelvis which is likely reactive. Radiologist: Santiago Huang MD Study ready at 00:35 and initial results transmitted at 00:41 Discharge Plan Visit Data Chief Complaint: Weakness Stated Complaint: Weakness, Fall, AMS ED Provider: Rock Barry Discharge Problem: Pulmonary embolism, SBO (small bowel obstruction), Elevated troponin, Parkinson disease Patient Disposition: Admitted As Inpatient Discharge Instructions Interventions: ED Discharge Assessment Last Done: 05/18/22 04:31 Forms Stand Alone Forms: My [facility] [employer] Prescriptions Prescriptions: No Action ascorbic acid (vitamin C) [Vitamin C] 500 mg Tablet 500 mg PO DAILY latanoprost 0.005 % drops 1 drp OPB HS calcium carbonate [Calcium 500] 500 mg calcium (1,250 mg) Tablet 500 mg PO DAILY omeprazole 20 mg capsule,delayed release(DR/EC) 20 mg PO DAILYBB Ellsworth 3-6-9 1,200 mg Capsule 1 cap PO DAILY Belsomra 5 mg tablet 5 mg PO HS PRN (Reason: Insomnia) saw palmetto 450 mg Capsule 0 mg PO DAILY Rx Instructions: PT'S SPOUSE UNSURE OF STRENGTH. Men's 50 Plus Multivitamin 400-20-370 mcg Tablet 1 tab PO DAILY sennosides [senna] 8.6 mg Tablet 8.6 mg PO DAILY carbidopa-levodopa 25-100 mg tablet extended release 1 tab PO HS polyethylene glycol 3350 [Miralax] 17 gram Powder In Packet 17 g PO DAILY carbidopa-levodopa 25-100 mg tablet 2 tab PO TID Rx Instructions: Breakfast , lunch & dinner trazodone 50 mg Tablet 50 mg PO DAILY Referrals Referrals: Oleksandr Figueroa, [Primary Care Provider] -
[2022-05-18] MEDS ORDERED: HEPARIN SOD (PORCINE) 1000 UNIT/ML IV STA (02:22)
[2022-05-18] MEDS: HEPARIN SODIUM/DEXTROSE 25,000 UNITS/500 ML BAG IV SCH (02:57)
[2022-05-18] MEDS ORDERED: PROMETHAZINE HCL 6.25 MG in SODIUM CHLORIDE 0.9% 50 ML IV PRN (05:09)
[2022-05-18] MEDS ORDERED: ACETAMINOPHEN 1,000 MG/100 ML VIAL IV PRN (05:09)
[2022-05-18 06:12] LABS: Partial Thromboplastin Ratio > 5.1
[2022-05-18 06:44] LABS: Estimated Average Glucose 120 mg/dl; Hemoglobin A1C 5.8 % (4.5-5.6)
[2022-05-18 06:51] LABS: Partial Thromboplastin Time > 139.0 Seconds (21.0-31.0)
[2022-05-18] MEDS ORDERED: Flu Vaccine-High Dose (Fluzone-HD) PF 65+ 0.7mL SYR IM ONE (08:00)
[2022-05-18] MEDS ORDERED: PNEUMOCOCCAL Polysaccharide Vaccine 25mcg/0.5mL vial/Syr IM ONE (08:00)
[2022-05-18 08:41] LABS: Basophils # (auto) 0.02 K/uL (0-0.2); Basophils % (auto) 0.1 %; Hematocrit (blood only) 44.7 % (40.1-51.0); Hemoglobin 14.9 g/dl (14.0-18.0); Immature Granulocytes # (auto) 0.04 K/uL (0.00-0.02); Immature Granulocytes % (auto) 0.3 %; Lymphocytes # (auto) 1.01 K/uL (1.2-3.4); Mean Corpuscular Hgb Conc 33.3 g/dL (32.0-36.0); Mean Corpuscular Volume 92.9 fL (80.0-100.0); Mean Platelet Volume 10.3 fL (9.4-12.4); Monocytes # (auto) 1.06 K/uL (0.24-0.82); Monocytes % (auto) 7.3 %; Neutrophils # (auto) 12.36 K/uL (1.4-6.5); Neutrophils % (auto) 85.3 %; Platelet Count 262 K/uL (130-400); RDW Coefficient of Variation 12.7 % (11.5-14.5); RDW Standard Deviation 43.5 fL (36.4-46.3); Red Blood Count 4.81 M/uL (4.63-6.08); White Blood Count 14.49 K/ul (4.8-10.8)
--- NOTE | 2022-05-18 08:41 | CT Scan Report ---
CT OF THE HEAD WITHOUT CONTRAST CLINICAL HISTORY: Weakness. COMPARISON STUDY: Head CT April 16, 2022. CT DOSE: 1244.10 mGy.cm TECHNIQUE: Helical axial images of the head were obtained without IV contrast. Automated exposure con trol was utilized for the study. A dose lowering technique was utilized adhering to the principles o f ALARA. FINDINGS: No acute intracranial hemorrhage, midline shift or mass effect is present. Old infarct with in the right cerebellar hemisphere is unchanged. White matter hypodensity suggests small vessel disea se. The ventricular system is unremarkable. The basal cisterns are patent. No extra-axial collections are present. There are no findings to suggest acute dural sinus thrombosis or acute territorial infa rct. No significant calvarial abnormalities are present. Visualized portions of the sinuses and masto id air cells are clear. IMPRESSION: No acute intracranial findings. ACT 112: Negative or not required by law. Electronically signed by: Teo Galvan M.D. 05/18/2022 8:40 AM
[2022-05-18 08:51] LABS: BUN Creatinine Ratio 18.3 (10-20); Calcium 8.2 mg/dl (8.5-10.1); Creatinine Clr Calc Pharmacy 47.5 ml/min; Est GFR (African American) 73.9 ml/min; Est GFR (Non-African American) 63.8 ml/min; Potassium 4.4 mmol/L (3.5-5.1)
[2022-05-18 09:04] LABS: Partial Thromboplastin Ratio 4.3
[2022-05-18 09:07] LABS: Partial Thromboplastin Time 118.7 Seconds (21.0-31.0)
--- NOTE | 2022-05-18 09:08 | Surgery Consultation ---
Date of Consultation May 18, 2022 Assessment & Plan (1) SBO (small bowel obstruction): (2) Parkinson disease: (3) Pulmonary embolism: Plan 82-year-old male with history of Parkinson's, chronic kidney disease stage III, prediabetes, hyperlipidemia presented to the emergency room with achy abdominal pain as well as increased weakness. CT scan of the abdomen and pelvis showing high-grade small bowel obstruction with 2 transition points as well as multiple pulmonary emboli. He has a leukocytosis of 14,000. No fever. Abdomen is currently soft nondistended mildly tender in the right lower quadrant. There is hypoactive bowel sounds but bowel sounds present. No peritonitis. Plan: No acute surgical intervention required at this time. Would recommend conservative management with n.p.o., bowel rest, IV fluids, pain management as needed, NG tube to low intermittent suction. Repeat KUB in the morning Continue conservative management Continue IV heparin for pulmonary emboli We will continue to follow Dr. Munroe has seen and examined patient and agrees with above. 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 Most of history obtained by chart as patient is a poor historian. He presented to the emergency room with achy abdominal pain. Last bowel movement was 2 days ago. Also had increasing weakness and slight confusion. He was brought to the emergency room for evaluation and was found to have high-grade small bowel obstruction with 2 transition points in the distal ileum as well as pulmonary embolus. Upon examining him this morning he states that he is having some generalized discomfort in his abdomen but not as significantly pain. No nausea currently. passing small amount of flatus. States he had an appendectomy when he was 7 years old no other abdominal surgeries. Allergies Allergy/AdvReac Type Severity Reaction Status Date / Time No Known Allergies Allergy Verified 05/18/22 02:11 Home Medications Medication Instructions Recorded Confirmed Type ascorbic acid (vitamin C) 500 mg 500 mg PO DAILY 03/08/20 05/18/22 History tablet (Vitamin C) calcium carbonate 500 mg calcium 500 mg PO DAILY 01/17/22 05/18/22 History (1,250 mg) tablet fish, borage, flaxseed oils-omega 1 cap PO DAILY 01/17/22 05/18/22 History 3,6,9 comb no.1 1,200 mg capsule ([place] 3-6-9) latanoprost 0.005 % eye drops 1 drp OPB HS 01/17/22 05/18/22 History nnoixfestezr-swa-jqxat acid-vit 1 tab PO DAILY 01/17/22 05/18/22 History K-lycop 400 mcg-20 mcg-370 mcg tablet (Men's 50 Plus Multivitamin) omeprazole 20 mg capsule,delayed 20 mg PO DAILYBB 01/17/22 05/18/22 History release saw palmetto 450 mg capsule 0 mg PO DAILY 01/17/22 05/18/22 History suvorexant 5 mg tablet (Belsomra) 5 mg PO HS PRN Insomnia 01/17/22 05/18/22 History carbidopa 25 mg-levodopa 100 mg 2 tab PO TID 05/18/22 05/18/22 History tablet carbidopa ER 25 mg-levodopa 100 mg 1 tab PO HS 05/18/22 05/18/22 History tablet,extended release polyethylene glycol 3350 17 gram 17 g PO DAILY 05/18/22 05/18/22 History oral powder packet (Miralax) sennosides 8.6 mg tablet (senna) 8.6 mg PO DAILY 05/18/22 05/18/22 History trazodone 50 mg tablet 50 mg PO DAILY 05/18/22 05/18/22 History Patient History Medical History CKD (chronic kidney disease) stage 3, GFR 30-59 ml/min HLD (hyperlipidemia) No pertinent family history Parkinson disease Prediabetes Surgical History S/P appendectomy Family History Other Family history non-contributory Social History Smoking Status: Unknown if ever smoked Preferred Language: Tam[place] Communication Ability: Effective marital status: Current Living Situation: Intermediate Current Living Situation Comment: Pt states he lives at the [facility] Feels Safe at Home: Yes Safety Concerns: Feels Safe At This Time Assistive Devices: Cane Review of Systems Review of Systems: Unobtainable due to cognitive status Physical Exam Constitutional: + frail appearing, cooperative and + lethargic; no acute d istress and not ill appearing Neck: normal visual inspection and trachea midline Respiratory: normal respiratory effort, lungs clear to auscultation Cardiovascular: Rate/Rhythm: regular rate and regular rhythm Gastrointestinal (Abdomen): Inspection/Auscultation: abdomen normal to inspection, + abdominal surgical scar (right lower appendectomy scar) and + hypoactive bowel sounds; abdomen not distended and + abnormal bowel sounds Percussion/Palpation: + abdomen tender (mild in the RLQ) and abdomen soft; no guarding, abdomen not rigid and abdomen not firm No peritonitis Skin: no rashes, warm and dry Psychiatric: Orientation: alert; + not oriented x 3 Results & Data ([facility]) Vital Signs (Past 12 Hours) Vital Signs Temp Pulse Pulse Resp BP BP Pulse Ox 05/18/22 06:33 80 05/18/22 05:28 05/18/22 05:28 36.8 C 78 12 157/77 H 94 05/18/22 05:18 05/18/22 03:29 36.7 C 83 17 143/98 H 98 05/18/22 02:31 87 16 151/95 H 100 05/18/22 02:00 89 20 137/93 99 05/18/22 01:30 155/87 H 100 05/18/22 01:00 87 14 167/94 H 100 05/18/22 00:30 108 H 20 170/90 H 99 05/17/22 23:30 88 16 151/99 H 100 05/17/22 23:00 90 17 148/99 H 100 05/17/22 22:30 140/96 05/17/22 22:00 88 16 146/94 H 100 05/17/22 21:30 91 H 15 160/93 H 100 Pulse Ox O2 Del Method O2 Del Method 05/18/22 06:33 05/18/22 05:28 Room Air 05/18/22 05:28 Room Air 05/18/22 05:18 94 Room Air 05/18/22 03:29 Room Air 05/18/22 02:31 05/18/22 02:00 05/18/22 01:30 05/18/22 01:00 05/18/22 00:30 05/17/22 23:30 05/17/22 23:00 05/17/22 22:30 05/17/22 22:00 05/17/22 21:30 Laboratory Results 05/18/22 05/18/22 05/18/22 Range/Units 08:22 06:49 05:29 WBC (4.8-10.8) K/ul RBC (4.63-6.08) M/uL Hgb (14.0-18.0) g/dl Hct (40.1-51.0) % MCV (80.0-100.0) fL MCH (25.0-34.0) pg MCHC (32.0-36.0) g/dL RDW Std Deviation (36.4-46.3) fL RDW Coeff of Jm (11.5-14.5) % Plt Count (130-400) K/uL MPV (9.4-12.4) fL Immature Gran % (Auto) % Neut % (Auto) % Lymph % (Auto) % Bee % (Auto) % Eos % (Auto) % Baso % (Auto) % Neut # (Auto) (1.4-6.5) K/uL Lymph # (Auto) (1.2-3.4) K/uL Bee # (Auto) (0.24-0.82) K/uL Eos # (Auto) (0-0.50) K/uL Baso # (Auto) (0-0.2) K/uL Immature Gran # (Auto) (0.00-0.02) K/uL APTT Pending PTT Ratio Pending Sodium 140 (136-145) mmol/L Potassium 4.4 (3.5-5.1) mmol/L Chloride 108 H (98-107) mmol/L Carbon Dioxide 27 (21-32) mmol/L Anion Gap 5 (3-11) BUN 20 (6-23) mg/dl Creatinine 1.09 (0.6-1.4) mg/dl Est Cr Clr Drug Dosing 47.5 ml/min Est GFR ( Amer) 73.9 ml/min Est GFR (Non-Af Amer) 63.8 ml/min BUN/Creatinine Ratio 18.3 (10-20) Glucose 134 H (70-99(Fasting)) mg/dl Estimat Average Glucose mg/dl Hemoglobin A1c (4.5-5.6) % Calcium 8.2 L (8.5-10.1) mg/dl Phosphorus (2.5-4.9) mg/dl Magnesium (1.7-2.4) mg/dl Total Bilirubin (0.2-1.0) mg/dl AST (13-39) U/L ALT (7-52) U/L Alkaline Phosphatase (34-104) U/L Troponin I High Sens (0-20) pg/ml Total Protein (6.0-8.3) gm/dl Albumin (3.4-5.0) gm/dl Globulin (2.5-4.0) gm/dl Albumin/Globulin Ratio (0.9-2) Lipase (11-82) U/L Procalcitonin (0-0.5) ng/ml TSH (0.300-4.500) uIu/ml Nasal Screen MRSA (PCR) Negative (Negative) SARS-CoV-2 (PCR) (Negative) Influenza Type A (PCR) (Neg) Influenza Type B (PCR) (Neg) RSV (RT-PCR) (Neg) 05/18/22 05/18/22 05/18/22 Range/Units 05:29 05:29 04:37 WBC 14.49 H (4.8-10.8) K/ul RBC 4.81 (4.63-6.08) M/uL Hgb 14.9 (14.0-18.0) g/dl Hct 44.7 (40.1-51.0) % MCV 92.9 (80.0-100.0) fL MCH 31.0 (25.0-34.0) pg MCHC 33.3 (32.0-36.0) g/dL RDW Std Deviation 43.5 (36.4-46.3) fL RDW Coeff of Jm 12.7 (11.5-14.5) % Plt Count 262 (130-400) K/uL MPV 10.3 (9.4-12.4) fL Immature Gran % (Auto) 0.3 % Neut % (Auto) 85.3 % Lymph % (Auto) 7.0 % Bee % (Auto) 7.3 % Eos % (Auto) 0.0 % Baso % (Auto) 0.1 % Neut # (Auto) 12.36 H (1.4-6.5) K/uL Lymph # (Auto) 1.01 L (1.2-3.4) K/uL Bee # (Auto) 1.06 H (0.24-0.82) K/uL Eos # (Auto) 0.00 (0-0.50) K/uL Baso # (Auto) 0.02 (0-0.2) K/uL Immature Gran # (Auto) 0.04 H (0.00-0.02) K/uL APTT > 139.0 H* PTT Ratio > 5.1 Sodium (136-145) mmol/L Potassium (3.5-5.1) mmol/L Chloride (98-107) mmol/L Carbon Dioxide (21-32) mmol/L Anion Gap (3-11) BUN (6-23) mg/dl Creatinine (0.6-1.4) mg/dl Est Cr Clr Drug Dosing ml/min Est GFR ( Amer) ml/min Est GFR (Non-Af Amer) ml/min BUN/Creatinine Ratio (10-20) Glucose (70-99(Fasting)) mg/dl Estimat Average Glucose mg/dl Hemoglobin A1c (4.5-5.6) % Calcium (8.5-10.1) mg/dl Phosphorus (2.5-4.9) mg/dl Magnesium (1.7-2.4) mg/dl Total Bilirubin (0.2-1.0) mg/dl AST (13-39) U/L ALT (7-52) U/L Alkaline Phosphatase (34-104) U/L Troponin I High Sens 196.3 H* D (0-20) pg/ml Total Protein (6.0-8.3) gm/dl Albumin (3.4-5.0) gm/dl Globulin (2.5-4.0) gm/dl Albumin/Globulin Ratio (0.9-2) Lipase (11-82) U/L Procalcitonin (0-0.5) ng/ml TSH (0.300-4.500) uIu/ml Nasal Screen MRSA (PCR) (Negative) SARS-CoV-2 (PCR) (Negative) Influenza Type A (PCR) (Neg) Influenza Type B (PCR) (Neg) RSV (RT-PCR) (Neg) 05/18/22 05/17/22 05/17/22 Range/Units 03:20 Unknown 20:20 WBC (4.8-10.8) K/ul RBC (4.63-6.08) M/uL Hgb (14.0-18.0) g/dl Hct (40.1-51.0) % MCV (80.0-100.0) fL MCH (25.0-34.0) pg MCHC (32.0-36.0) g/dL RDW Std Deviation (36.4-46.3) fL RDW Coeff of Jm (11.5-14.5) % Plt Count (130-400) K/uL MPV (9.4-12.4) fL Immature Gran % (Auto) % Neut % (Auto) % Lymph % (Auto) % Bee % (Auto) % Eos % (Auto) % Baso % (Auto) % Neut # (Auto) (1.4-6.5) K/uL Lymph # (Auto) (1.2-3.4) K/uL Bee # (Auto) (0.24-0.82) K/uL Eos # (Auto) (0-0.50) K/uL Baso # (Auto) (0-0.2) K/uL Immature Gran # (Auto) (0.00-0.02) K/uL APTT Cancelled PTT Ratio Cancelled Sodium (136-145) mmol/L Potassium (3.5-5.1) mmol/L Chloride (98-107) mmol/L Carbon Dioxide (21-32) mmol/L Anion Gap (3-11) BUN (6-23) mg/dl Creatinine (0.6-1.4) mg/dl Est Cr Clr Drug Dosing ml/min Est GFR ( Amer) ml/min Est GFR (Non-Af Amer) ml/min BUN/Creatinine Ratio (10-20) Glucose (70-99(Fasting)) mg/dl Estimat Average Glucose mg/dl Hemoglobin A1c (4.5-5.6) % Calcium (8.5-10.1) mg/dl Phosphorus (2.5-4.9) mg/dl Magnesium (1.7-2.4) mg/dl Total Bilirubin (0.2-1.0) mg/dl AST (13-39) U/L ALT (7-52) U/L Alkaline Phosphatase (34-104) U/L Troponin I High Sens (0-20) pg/ml Total Protein (6.0-8.3) gm/dl Albumin (3.4-5.0) gm/dl Globulin (2.5-4.0) gm/dl Albumin/Globulin Ratio (0.9-2) Lipase (11-82) U/L Procalcitonin 0.13 (0-0.5) ng/ml TSH (0.300-4.500) uIu/ml Nasal Screen MRSA (PCR) (Negative) SARS-CoV-2 (PCR) NEGATIVE (Negative) Influenza Type A (PCR) Negative (Neg) Influenza Type B (PCR) Negative (Neg) RSV (RT-PCR) Negative (Neg) 05/17/22 05/17/22 05/17/22 Range/Units 20:20 20:20 20:20 WBC (4.8-10.8) K/ul RBC (4.63-6.08) M/uL Hgb (14.0-18.0) g/dl Hct (40.1-51.0) % MCV (80.0-100.0) fL MCH (25.0-34.0) pg MCHC (32.0-36.0) g/dL RDW Std Deviation (36.4-46.3) fL RDW Coeff of Jm (11.5-14.5) % Plt Count (130-400) K/uL MPV (9.4-12.4) fL Immature Gran % (Auto) % Neut % (Auto) % Lymph % (Auto) % Bee % (Auto) % Eos % (Auto) % Baso % (Auto) % Neut # (Auto) (1.4-6.5) K/uL Lymph # (Auto) (1.2-3.4) K/uL Bee # (Auto) (0.24-0.82) K/uL Eos # (Auto) (0-0.50) K/uL Baso # (Auto) (0-0.2) K/uL Immature Gran # (Auto) (0.00-0.02) K/uL APTT PTT Ratio Sodium (136-145) mmol/L Potassium (3.5-5.1) mmol/L Chloride (98-107) mmol/L Carbon Dioxide (21-32) mmol/L Anion Gap (3-11) BUN (6-23) mg/dl Creatinine (0.6-1.4) mg/dl Est Cr Clr Drug Dosing ml/min Est GFR ( Amer) ml/min Est GFR (Non-Af Amer) ml/min BUN/Creatinine Ratio (10-20) Glucose (70-99(Fasting)) mg/dl Estimat Average Glucose 120 mg/dl Hemoglobin A1c 5.8 H (4.5-5.6) % Calcium (8.5-10.1) mg/dl Phosphorus 3.3 (2.5-4.9) mg/dl Magnesium 2.1 (1.7-2.4) mg/dl Total Bilirubin (0.2-1.0) mg/dl AST (13-39) U/L ALT (7-52) U/L Alkaline Phosphatase (34-104) U/L Troponin I High Sens (0-20) pg/ml Total Protein (6.0-8.3) gm/dl Albumin (3.4-5.0) gm/dl Globulin (2.5-4.0) gm/dl Albumin/Globulin Ratio (0.9-2) Lipase < 3 L (11-82) U/L Procalcitonin (0-0.5) ng/ml TSH 3.143 (0.300-4.500) uIu/ml Nasal Screen MRSA (PCR) (Negative) SARS-CoV-2 (PCR) (Negative) Influenza Type A (PCR) (Neg) Influenza Type B (PCR) (Neg) RSV (RT-PCR) (Neg) 05/17/22 05/17/22 Range/Units 20:20 20:20 WBC 14.15 H (4.8-10.8) K/ul RBC 5.53 (4.63-6.08) M/uL Hgb 17.1 (14.0-18.0) g/dl Hct 51.0 (40.1-51.0) % MCV 92.2 (80.0-100.0) fL MCH 30.9 (25.0-34.0) pg MCHC 33.5 (32.0-36.0) g/dL RDW Std Deviation 42.5 (36.4-46.3) fL RDW Coeff of Jm 12.5 (11.5-14.5) % Plt Count 284 (130-400) K/uL MPV 9.7 (9.4-12.4) fL Immature Gran % (Auto) 0.4 % Neut % (Auto) 90.9 % Lymph % (Auto) 4.5 % Bee % (Auto) 4.0 % Eos % (Auto) 0.0 % Baso % (Auto) 0.2 % Neut # (Auto) 12.85 H (1.4-6.5) K/uL Lymph # (Auto) 0.64 L (1.2-3.4) K/uL Bee # (Auto) 0.57 (0.24-0.82) K/uL Eos # (Auto) 0.00 (0-0.50) K/uL Baso # (Auto) 0.03 (0-0.2) K/uL Immature Gran # (Auto) 0.06 H (0.00-0.02) K/uL APTT PTT Ratio Sodium 139 (136-145) mmol/L Potassium 4.7 (3.5-5.1) mmol/L Chloride 103 (98-107) mmol/L Carbon Dioxide 27 (21-32) mmol/L Anion Gap 9 (3-11) BUN 18 (6-23) mg/dl Creatinine 1.32 (0.6-1.4) mg/dl Est Cr Clr Drug Dosing 40.0 ml/min Est GFR ( Amer) 58.6 ml/min Est GFR (Non-Af Amer) 50.6 ml/min BUN/Creatinine Ratio 13.6 (10-20) Glucose 180 H (70-99(Fasting)) mg/dl Estimat Average Glucose mg/dl Hemoglobin A1c (4.5-5.6) % Calcium 9.3 (8.5-10.1) mg/dl Phosphorus (2.5-4.9) mg/dl Magnesium (1.7-2.4) mg/dl Total Bilirubin 0.9 (0.2-1.0) mg/dl AST 20 (13-39) U/L ALT 7 (7-52) U/L Alkaline Phosphatase 69 (34-104) U/L Troponin I High Sens 250.3 H* D (0-20) pg/ml Total Protein 7.8 (6.0-8.3) gm/dl Albumin 4.0 (3.4-5.0) gm/dl Globulin 3.8 (2.5-4.0) gm/dl Albumin/Globulin Ratio 1.1 (0.9-2) Lipase (11-82) U/L Procalcitonin (0-0.5) ng/ml TSH (0.300-4.500) uIu/ml Nasal Screen MRSA (PCR) (Negative) SARS-CoV-2 (PCR) (Negative) Influenza Type A (PCR) (Neg) Influenza Type B (PCR) (Neg) RSV (RT-PCR) (Neg) Diagnostic Findings CT OF THE ABDOMEN AND PELVIS WITH CONTRAST CLINICAL HISTORY: Abdominal pain. COMPARISON STUDY: CT of the abdomen and pelvis February 01, 2020. TECHNIQUE: Following IV administration of 113 mL of Optiray, axial images of the abdomen and pelvis were obtained from the lung bases to the proximal femurs. Images were reviewed in the axial, sagittal, and coronal planes. IV contrast was administered without complication. Automated exposure control was utilized for the study. A dose lowering technique was utilized adhering to the principles of ALARA. FINDINGS: Please note that the chest CT will be reported separately. Multiple pulmonary emboli are better depicted on the chest CT which will be reported separately. A 1.6 cm subpleural hypodense focus is new since chest CT January 17, 2022. No pneumatosis, free air or portal venous gas is present. Liver, spleen, adrenal glands, kidneys and pancreas are unremarkable. There is no biliary or pancreatic ductal dilatation. Scarring within the left kidney is unchanged. There is no hydronephrosis. A small amount of abdominal and pelvic ascites is noted. The mid to distal small bowel is mildly dilated and fluid-filled. There is moderate wall thickening of multiple ileal loops with associated mesenteric stranding and interloop fluid. Multiple transition point within the ileum are noted, within the right lower quadrant. Decompressed small bowel loops are noted. Major vasculature is grossly patent. There is no lymphadenopathy. There is no fluid collection to suggest an abscess. IMPRESSION: 1. Findings consistent with a high-grade small bowel obstruction, as described above. Multiple transition points within the right lower quadrant. Moderate wall thickening of several ileal loops with associated mesenteric stranding and interloop fluid/ascites. A closed loop small bowel obstruction with bowel ischemia cannot be excluded. No pneumatosis, portal venous gas or free air. 2. Multiple pulmonary emboli, better depicted on the chest CT. Possible deep venous thrombus within the right superficial femoral vein. CT angio chest PE protocol CLINICAL HISTORY: PE TECHNIQUE: Multidetector row helical CT of the chest was performed with angiographic protocol. Coronal and sagittal reformations were obtained. Coronal and sagittal MIPS were obtained from the axial data set and were submitted for review. Automated dose lowering techniques and/or adjustment according to patient size were utilized for this exam. Comparison: Comparison is made to CTA chest 01/17/2022 FINDINGS: Lungs and pleura: There is a 6 mm nodule in the right upper lobe (series 7 image 130) and a 3 mm nodule in the right upper lobe (image 156). A rounded density in the right lung base is favored to represent atelectasis. Heart and pericardium: Heart size is normal. No pericardial effusion. Vessels: Extensive right pain, lobar, segmental, and subsegmental pulmonary emboli. No left pulmonary emboli are seen. Mediastinum and julio césar: Unremarkable. Chest wall and lower neck: Unremarkable. Abdomen: A small amount of ascites is noted. Bones: Degenerative changes in the thoracic spine. IMPRESSION: Lobar pulmonary emboli in the right lung without evidence of right heart strain.
--- NOTE | 2022-05-18 09:39 | CT Scan Report ---
CT OF THE ABDOMEN AND PELVIS WITH CONTRAST CLINICAL HISTORY: Abdominal pain. COMPARISON STUDY: CT of the abdomen and pelvis February 01, 2020. TECHNIQUE: Following IV administration of 113 mL of Optiray, axial images of the abdomen and pelvis w ere obtained from the lung bases to the proximal femurs. Images were reviewed in the axial, sagittal, and coronal planes. IV contrast was administered without complication. Automated exposure control w as utilized for the study. A dose lowering technique was utilized adhering to the principles of LILIA Mosqueda. FINDINGS: Please note that the chest CT will be reported separately. Multiple pulmonary emboli are be tter depicted on the chest CT which will be reported separately. A 1.6 cm subpleural hypodense focus is new since chest CT January 17, 2022. No pneumatosis, free air or portal venous gas is present. Liver , spleen, adrenal glands, kidneys and pancreas are unremarkable. There is no biliary or pancreatic du ctal dilatation. Scarring within the left kidney is unchanged. There is no hydronephrosis. A small am ount of abdominal and pelvic ascites is noted. The mid to distal small bowel is mildly dilated and fl uid-filled. There is moderate wall thickening of multiple ileal loops with associated mesenteric stra nding and interloop fluid. Multiple transition point within the ileum are noted, within the right low er quadrant. Decompressed small bowel loops are noted. Major vasculature is grossly patent. There is no lymphadenopathy. There is no fluid collection to suggest an abscess. IMPRESSION: 1. Findings consistent with a high-grade small bowel obstruction, as described above. Multiple transi tion points within the right lower quadrant. Moderate wall thickening of several ileal loops with ass ociated mesenteric stranding and interloop fluid/ascites. A closed loop small bowel obstruction with bowel ischemia cannot be excluded. No pneumatosis, portal venous gas or free air. 2. Multiple pulmonary emboli, better depicted on the chest CT. Possible deep venous thrombus within t he right superficial femoral vein. ACT 112: Negative or not required by law. Electronically signed by: Teo Galvan M.D. 05/18/2022 9:37 AM
--- NOTE | 2022-05-18 09:45 | CT Scan Report ---
CT angio chest PE protocol CLINICAL HISTORY: PE TECHNIQUE: Multidetector row helical CT of the chest was performed with angiographic protocol. Stevenson l and sagittal reformations were obtained. Coronal and sagittal MIPS were obtained from the axial nahun a set and were submitted for review. Automated dose lowering techniques and/or adjustment according to patient size were utilized for this exam. Comparison: Comparison is made to CTA chest 01/17/2022 FINDINGS: Lungs and pleura: There is a 6 mm nodule in the right upper lobe (series 7 image 130) and a 3 mm nodu le in the right upper lobe (image 156). A rounded density in the right lung base is favored to repres ent atelectasis. Heart and pericardium: Heart size is normal. No pericardial effusion. Vessels: Extensive right pain, lobar, segmental, and subsegmental pulmonary emboli. No left pulmonary emboli are seen. Mediastinum and julio césar: Unremarkable. Chest wall and lower neck: Unremarkable. Abdomen: A small amount of ascites is noted. Bones: Degenerative changes in the thoracic spine. IMPRESSION: Lobar pulmonary emboli in the right lung without evidence of right heart strain. ACT 112: Negative or not required by law. Electronically signed by: Robert Starr M.D. 05/18/2022 9:44 AM
[2022-05-18] MEDS: CARBIDOPA/LEVODOPA 25/100MG TAB PO SCH ×3 (09:46→18:25)
[2022-05-18] MEDS: traZODone HCL 50 MG TAB PO SCH (09:47)
--- NOTE | 2022-05-18 10:16 | Ultrasound Report ---
BILATERAL LOWER EXTREMITY VENOUS DOPPLER HISTORY: leg swelling COMPARISON STUDY: None. FINDINGS: The right common femoral vein is patent. There is occlusive thrombus seen within the right superficial femoral, popliteal, and peroneal veins. The left deep venous structures appear patent. IMPRESSION: 1. Positive DVT within the right lower extremity as described above. 2. No DVT within the left lower extremity. ACT 112: Negative or not required by law. Electronically signed by: Sebastian Lincoln M.D. 05/18/2022 10:15 AM
--- NOTE | 2022-05-18 10:46 | XRay Report ---
XR chest 1V portable CLINICAL HISTORY: weakness COMPARISON STUDY: Chest CT January 17, 2022 and chest radiograph April 16, 2022. FINDINGS: There is mild elevation of the right hemidiaphragm. Lungs are clear. There is no pneumothor ax or pleural effusion. Cardiac size is normal. Mediastinal contours are normal. There is no evidence for pulmonary edema. IMPRESSION: No acute cardiopulmonary findings. ACT 112: Negative or not required by law. Electronically signed by: Teo Galvan M.D. 05/18/2022 10:44 AM
[2022-05-18 11:22] LABS: Partial Thromboplastin Ratio 2.1
[2022-05-18 11:23] LABS: Partial Thromboplastin Time 57.6 Seconds (21.0-31.0)
--- NOTE | 2022-05-18 11:33 | XRay Report ---
XR chest 1V portable CLINICAL HISTORY: confirm NGT TECHNIQUE: Single frontal radiograph of the chest was obtained. Comparison: Comparison is made to chest radiograph 05/17/2022 FINDINGS: Enteric tube side-port is below the diaphragm. Calcified aortic knob is seen. The lungs are clear. No evidence of pleural effusion or pneumothorax. IMPRESSION: Enteric tube side-port is below the diaphragm. ACT 112: Negative or not required by law. Electronically signed by: Robert Starr M.D. 05/18/2022 11:31 AM
[2022-05-18 15:20] LABS: Appearance Urine Clear (Clear); Bacteria Urine Automated Negative (Negative); Bilirubin Urine Negative (Negative); Blood Urine Negative (Negative); Color Urine Yellow; Epithelial Cell Urine Auto >30 /lpf (0-5); Glucose Urine UA Negative (Negative); Ketones Urine Trace (Negative); Leukocyte Esterase Urine Negative (Negative); Nitrite Urine Negative (Negative); Protein Urine Trace (Negative); RBC Urine Automated 0-4 /hpf (0-4); Specific Gravity Urine > 1.045 (1.000-1.030); Urobilinogen Urine Negative (Negative)
--- NOTE | 2022-05-18 15:46 | Hospitalist Progress Note ---
Date of Service May 18, 2022 Assessment & Plan (1) Pulmonary embolism: Plan: Acute Pulmonary Embolism Right lower extremity DVT Possible PE due to right femoral DVT --CTA showed Extensive right main, lobar, segmental, and subsegmental pulmonary emboli --Venous Doppler:The right common femoral vein is patent. There is occlusive thrombus seen within the right superficial femoral, popliteal, and peroneal veins. The left deep venous structures appear patent. --ECHO: Normal LV chamber size with mild concentric LVH. Normal LV systolic function, EF 60 to 65%. No segmental left ventricle wall motion abnormality noted. Grade 1 diastolic dysfunction. Right ventricle cavity size is normal. Right ventricle systolic function is borderline reduced. Mild mitral regurgitation. Borderline pulmonary hypertension with a PA systolic pressure of 41 mmHg assuming a right atrial pressure of 3 mmHg. -- Continue IV heparin --Saturating well on room air next Small bowel obstruction --CT ABD:Findings consistent with a high-grade small bowel obstruction, as described above. Multiple transition points within the right lower quadrant. Moderate wall thickening of several ileal loops with associated mesenteric stranding and interloop fluid/ascites. A closed loop small bowel obstruction with bowel ischemia cannot be excluded. No pneumatosis, portal venous gas or free air. -Appreciate surgery input Conservative management for now Continue bowel rest, IV fluids Pain control And continue NG tube Plan to repeat KUB tomorrow H/O CVA --CT Head:No acute intracranial findings. Monitor GERD on PPI Prediabetes HbA1C:5.9 in Feb 2022 Troponin elevation Likely type II VA secondary to PE DVT Px: IV heparin Code Status Full code Disposition PT/OT prior to discharge Admission and Anticipated Discharge Date Admission Date: May 18, 2022 Subjective Patient is seen and examined at bedside Poor historian States having nausea, abdominal pain Agitated overnight Denies any chest pain, dyspnea, dizziness Saturating low 90s on room air Afebrile No other complaints Review of Systems Review of Systems: All systems reviewed & are unremarkable except as noted in Subjective Physical Exam Physical Exam: Physical Exam: Vitals signs as noted above General Appearance:Thin, frail, chronically appearing, no apparent distress Head: normocephalic, Atraumatic, +NG Eyes: normal inspection, EOMI Neck: supple, Trachea midline Respiratory/Chest: Normal breath sounds, CTA, No accessory muscle use Cardiovascular: S1, S2, No murmur Abdomen/GI:Soft, Non tender, decreased Bowel sounds Extremities/Musculoskeletal:normal inspection, mild edema Neurologic/Psych:AAOX1, mild hearing impairment grossly no focal neurological deficits, +Resting tremor Skin: normal color, warm Results & Data Results & Data ([facility]) Vital Signs (Past 12 Hours) Vital Signs Temp Pulse Pulse Resp BP Pulse Ox Pulse Ox 05/18/22 13:00 159/96 H 05/18/22 11:17 36.3 C L 84 18 182/97 H 90 05/18/22 09:00 84 05/18/22 09:00 05/18/22 09:29 37 C 81 18 155/89 H 93 05/18/22 06:33 80 05/18/22 05:28 05/18/22 05:28 36.8 C 78 12 157/77 H 94 05/18/22 05:18 94 O2 Del Method O2 Del Method 05/18/22 13:00 05/18/22 11:17 Room Air 05/18/22 09:00 05/18/22 09:00 Room Air 05/18/22 09:29 Room Air 05/18/22 06:33 05/18/22 05:28 Room Air 05/18/22 05:28 Room Air 05/18/22 05:18 Room Air Laboratory Results Short CBC 05/17/22 05/18/22 Range/Units 20:20 05:29 WBC 14.15 H 14.49 H (4.8-10.8) K/ul Hgb 17.1 14.9 (14.0-18.0) g/dl Hct 51.0 44.7 (40.1-51.0) % Plt Count 284 262 (130-400) K/uL BMP 05/17/22 05/18/22 20:20 05:29 Sodium 139 140 Potassium 4.7 4.4 Chloride 103 108 H Carbon Dioxide 27 27 BUN 18 20 Creatinine 1.32 1.09 Glucose 180 H 134 H Calcium 9.3 8.2 L Liver Function 05/17/22 Range/Units 20:20 Total Bilirubin 0.9 (0.2-1.0) mg/dl AST 20 (13-39) U/L ALT 7 (7-52) U/L Alkaline Phosphatase 69 (34-104) U/L Albumin 4.0 (3.4-5.0) gm/dl Urine 05/18/22 Range/Units 14:40 Urine Color Yellow Urine Appearance Clear (Clear) Urine pH 5.0 (4.5-7.5) Ur Specific [place] > 1.045 H (1.000-1.030) Urine Protein Trace H (Negative) Urine Glucose (UA) Negative (Negative)
--- NOTE | 2022-05-18 16:55 | Electrocardiogram Report ---
Test Reason : Blood Pressure : / mmHG Vent. Rate : 095 BPM Atrial Rate : 095 BPM P-R Int : 158 ms QRS Dur : 072 ms QT Int : 340 ms P-R-T Axes : 052 -22 055 degrees QTc Int : 427 ms Poor data quality, interpretation may be adversely affected Sinus rhythm with frequent Premature ventricular complexes Inferior infarct , age undetermined Abnormal ECG When compared with ECG of 17-JAN-2022 15:57, Premature ventricular complexes are now Present Confirmed by Brandon Charles ([id number]) on 05/18/2022 4:54:34 PM Referred By: REFERRED SELF Confirmed By:Brandon Charles
[2022-05-18 18:51] LABS: Partial Thromboplastin Ratio > 5.1
[2022-05-18 18:57] LABS: Partial Thromboplastin Time > 139.0 Seconds (21.0-31.0)
[2022-05-18] MEDS: LATANOPROST 0.005% OP SOLN 2.5 ML BTL OPB SCH (20:25)
[2022-05-18] MEDS: CARBIDOPA/LEVODOPA 25/100MG EXT REL TAB PO SCH (20:27)
[2022-05-18] MEDS ORDERED: CARBIDOPA/LEVODOPA 25/100MG EXT REL TAB PO SCH (21:00)
[2022-05-18] MEDS ORDERED: CARBIDOPA/LEVODOPA 25/100MG TAB PO SCH (21:00)
[2022-05-18 22:01] LABS: Partial Thromboplastin Ratio 2.5
[2022-05-18 22:04] LABS: Partial Thromboplastin Time 68.1 Seconds (21.0-31.0)
[2022-05-19] MEDS: SODIUM CHLORIDE 0.9% 1000ML 1,000 ML IV SCH ×2 (01:52→21:09)
[2022-05-19 07:21] LABS: Basophils # (auto) 0.07 K/uL (0-0.2); Basophils % (auto) 0.6 %; Eosinophils # (auto) 0.03 K/uL (0-0.50); Eosinophils % (auto) 0.3 %; Hematocrit (blood only) 39.6 % (40.1-51.0); Hemoglobin 13.3 g/dl (14.0-18.0); Immature Granulocytes # (auto) 0.04 K/uL (0.00-0.02); Immature Granulocytes % (auto) 0.3 %; Lymphocytes # (auto) 1.16 K/uL (1.2-3.4); Lymphocytes % (auto) 10.1 %; Mean Corpuscular Hemoglobin 30.9 pg (25.0-34.0); Mean Corpuscular Hgb Conc 33.6 g/dL (32.0-36.0); Mean Corpuscular Volume 91.9 fL (80.0-100.0); Mean Platelet Volume 9.7 fL (9.4-12.4); Monocytes # (auto) 0.83 K/uL (0.24-0.82); Monocytes % (auto) 7.2 %; Neutrophils # (auto) 9.33 K/uL (1.4-6.5); Neutrophils % (auto) 81.5 %; Platelet Count 243 K/uL (130-400); RDW Coefficient of Variation 12.4 % (11.5-14.5); RDW Standard Deviation 42.1 fL (36.4-46.3); Red Blood Count 4.31 M/uL (4.63-6.08); White Blood Count 11.46 K/ul (4.8-10.8)
[2022-05-19 07:44] LABS: Partial Thromboplastin Ratio 2.8
[2022-05-19 07:48] LABS: Partial Thromboplastin Time 77.9 Seconds (21.0-31.0)
[2022-05-19 07:51] LABS: Calcium 8.2 mg/dl (8.5-10.1); Creatinine Clr Calc Pharmacy 60.8 ml/min; Est GFR (African American) 95.4 ml/min; Est GFR (Non-African American) 82.3 ml/min; Potassium 3.8 mmol/L (3.5-5.1)
[2022-05-19] MEDS: CARBIDOPA/LEVODOPA 25/100MG TAB PO SCH ×3 (09:10→17:47)
[2022-05-19] MEDS: PANTOprazole 40 MG in SYRINGE 0 ML IV SCH (09:11)
[2022-05-19] MEDS: traZODone HCL 50 MG TAB PO SCH (09:29)
--- NOTE | 2022-05-19 09:29 | Surgery Progress Note ---
Date of Service May 19, 2022 Assessment & Plan (1) SBO (small bowel obstruction): (2) Parkinson disease: (3) Pulmonary embolism: Plan 82-year-old male with history of Parkinson's, chronic kidney disease stage III, prediabetes, hyperlipidemia presented to the emergency room with achy abdominal pain as well as increased weakness. CT scan of the abdomen and pelvis showing high-grade small bowel obstruction with 2 transition points as well as multiple pulmonary emboli. 05/19/2022: His abdomen is completely soft without any distention, NGT output is minimal overnight KUB pending this am leukocytosis improved, vss Plan: No acute surgical intervention required at this time. Would recommend conservative management with n.p.o., bowel rest, IV fluids, pain management as needed, NG tube to low intermittent suction. Continue medical management Continue IV heparin for pulmonary emboli We will continue to follow Dr. Munroe has seen and examined patient and agrees with above. Admission and Anticipated Discharge Date Admission Date: May 18, 2022 Subjective Patient sleeping upon entering room Unable to obtain full review of symptoms given patient's cognitive status States he is not having any abdominal pain Discussed with nurse who states he has not had a KUB yet this morning. NG tube is still present with minimal output in canister has not been changed since placement. Physical Exam Constitutional: WD/WN, vitals as above no acute distress, not ill appearing and not in distress Neck: normal visual inspection and trachea midline Gastrointestinal (Abdomen): Inspection/Auscultation: abdomen normal to inspection and + hypoactive bowel sounds; abdomen not distended and + abnormal bowel sounds Percussion/Palpation: + abdomen tender (mild tenderness in LUQ) and abdomen soft; no guarding, abdomen not rigid and abdomen not firm NGT with brownish output in canister Skin: no rashes, warm and dry Psychiatric: Orientation: alert; + not oriented x 3 Results & Data ([facility]) Vital Signs (Past 12 Hours) Vital Signs Temp Pulse Pulse Resp BP Pulse Ox O2 Del Method 05/19/22 07:22 37.0 C 84 16 131/88 93 Room Air 05/19/22 03:08 36.8 C 89 16 128/94 93 Room Air 05/19/22 00:02 93 H 05/18/22 23:24 36.9 C 82 18 143/90 H 91 Room Air Laboratory Results 05/19/22 05/19/22 05/19/22 Range/Units 06:54 06:54 06:54 WBC 11.46 H (4.8-10.8) K/ul RBC 4.31 L (4.63-6.08) M/uL Hgb 13.3 L (14.0-18.0) g/dl Hct 39.6 L (40.1-51.0) % MCV 91.9 (80.0-100.0) fL MCH 30.9 (25.0-34.0) pg MCHC 33.6 (32.0-36.0) g/dL RDW Std Deviation 42.1 (36.4-46.3) fL RDW Coeff of Jm 12.4 (11.5-14.5) % Plt Count 243 (130-400) K/uL MPV 9.7 (9.4-12.4) fL Immature Gran % (Auto) 0.3 % Neut % (Auto) 81.5 % Lymph % (Auto) 10.1 % [place] % (Auto) 7.2 % Eos % (Auto) 0.3 % Baso % (Auto) 0.6 % Neut # (Auto) 9.33 H (1.4-6.5) K/uL Lymph # (Auto) 1.16 L (1.2-3.4) K/uL [place] # (Auto) 0.83 H (0.24-0.82) K/uL Eos # (Auto) 0.03 (0-0.50) K/uL Baso # (Auto) 0.07 (0-0.2) K/uL Immature Gran # (Auto) 0.04 H (0.00-0.02) K/uL APTT 77.9 H* (21.0-31.0) Seconds PTT Ratio 2.8 Sodium 140 (136-145) mmol/L Potassium 3.8 (3.5-5.1) mmol/L Chloride 107 (98-107) mmol/L Carbon Dioxide 26 (21-32) mmol/L Anion Gap 7 (3-11) BUN 17 (6-23) mg/dl Creatinine 0.85 (0.6-1.4) mg/dl Est Cr Clr Drug Dosing 60.8 ml/min Est GFR ( Amer) 95.4 ml/min Est GFR (Non-Af Amer) 82.3 ml/min BUN/Creatinine Ratio 20.0 (10-20) Glucose 105 H (70-99(Fasting)) mg/dl Calcium 8.2 L (8.5-10.1) mg/dl Magnesium 2.0 (1.7-2.4) mg/dl Urine Color Urine Appearance (Clear) Urine pH (4.5-7.5) Ur Specific [place] (1.000-1.030) Urine Protein (Negative) Urine Glucose (UA) (Negative) Urine Ketones (Negative) Urine Blood (Negative) Urine Nitrite (Negative) Urine Bilirubin (Negative) Urine Urobilinogen (Negative) Ur Leukocyte Esterase (Negative) Urine WBC (Auto) (0-5) /hpf Urine RBC (Auto) (0-4) /hpf U Hyaline Cast (Auto) (0-5) /lpf U Epithel Cells (Auto) (0-5) /lpf Urine Bacteria (Auto) (Negative) 05/18/22 05/18/22 05/18/22 Range/Units 21:21 17:33 14:40 WBC (4.8-10.8) K/ul RBC (4.63-6.08) M/uL Hgb (14.0-18.0) g/dl Hct (40.1-51.0) % MCV (80.0-100.0) fL MCH (25.0-34.0) pg MCHC (32.0-36.0) g/dL RDW Std Deviation (36.4-46.3) fL RDW Coeff of Jm (11.5-14.5) % Plt Count (130-400) K/uL MPV (9.4-12.4) fL Immature Gran % (Auto) % Neut % (Auto) % Lymph % (Auto) % [place] % (Auto) % Eos % (Auto) % Baso % (Auto) % Neut # (Auto) (1.4-6.5) K/uL Lymph # (Auto) (1.2-3.4) K/uL [place] # (Auto) (0.24-0.82) K/uL Eos # (Auto) (0-0.50) K/uL Baso # (Auto) (0-0.2) K/uL Immature Gran # (Auto) (0.00-0.02) K/uL APTT 68.1 H* > 139.0 H* (21.0-31.0) Seconds PTT Ratio 2.5 > 5.1 Sodium (136-145) mmol/L Potassium (3.5-5.1) mmol/L Chloride (98-107) mmol/L Carbon Dioxide (21-32) mmol/L Anion Gap (3-11) BUN (6-23) mg/dl Creatinine (0.6-1.4) mg/dl Est Cr Clr Drug Dosing ml/min Est GFR ( Amer) ml/min Est GFR (Non-Af Amer) ml/min BUN/Creatinine Ratio (10-20) Glucose (70-99(Fasting)) mg/dl Calcium (8.5-10.1) mg/dl Magnesium (1.7-2.4) mg/dl Urine Color Yellow Urine Appearance Clear (Clear) Urine pH 5.0 (4.5-7.5) Ur Specific [place] > 1.045 H (1.000-1.030) Urine Protein Trace H (Negative) Urine Glucose (UA) Negative (Negative) Urine Ketones Trace H (Negative) Urine Blood Negative (Negative) Urine Nitrite Negative (Negative) Urine Bilirubin Negative (Negative) Urine Urobilinogen Negative (Negative) Ur Leukocyte Esterase Negative (Negative) Urine WBC (Auto) 5-10 H (0-5) /hpf Urine RBC (Auto) 0-4 (0-4) /hpf U Hyaline Cast (Auto) 10-30 H (0-5) /lpf U Epithel Cells (Auto) >30 H (0-5) /lpf Urine Bacteria (Auto) Negative (Negative) 05/18/22 Range/Units 10:10 WBC (4.8-10.8) K/ul RBC (4.63-6.08) M/uL Hgb (14.0-18.0) g/dl Hct (40.1-51.0) % MCV (80.0-100.0) fL MCH (25.0-34.0) pg MCHC (32.0-36.0) g/dL RDW Std Deviation (36.4-46.3) fL RDW Coeff of Jm (11.5-14.5) % Plt Count (130-400) K/uL MPV (9.4-12.4) fL Immature Gran % (Auto) % Neut % (Auto) % Lymph % (Auto) % [place] % (Auto) % Eos % (Auto) % Baso % (Auto) % Neut # (Auto) (1.4-6.5) K/uL Lymph # (Auto) (1.2-3.4) K/uL [place] # (Auto) (0.24-0.82) K/uL Eos # (Auto) (0-0.50) K/uL Baso # (Auto) (0-0.2) K/uL Immature Gran # (Auto) (0.00-0.02) K/uL APTT 57.6 H* (21.0-31.0) Seconds PTT Ratio 2.1 Sodium (136-145) mmol/L Potassium (3.5-5.1) mmol/L Chloride (98-107) mmol/L Carbon Dioxide (21-32) mmol/L Anion Gap (3-11) BUN (6-23) mg/dl Creatinine (0.6-1.4) mg/dl Est Cr Clr Drug Dosing ml/min Est GFR ( Amer) ml/min Est GFR (Non-Af Amer) ml/min BUN/Creatinine Ratio (10-20) Glucose (70-99(Fasting)) mg/dl Calcium (8.5-10.1) mg/dl Magnesium (1.7-2.4) mg/dl Urine Color Urine Appearance (Clear) Urine pH (4.5-7.5) Ur Specific [place] (1.000-1.030) Urine Protein (Negative) Urine Glucose (UA) (Negative) Urine Ketones (Negative) Urine Blood (Negative) Urine Nitrite (Negative) Urine Bilirubin (Negative) Urine Urobilinogen (Negative) Ur Leukocyte Esterase (Negative) Urine WBC (Auto) (0-5) /hpf Urine RBC (Auto) (0-4) /hpf U Hyaline Cast (Auto) (0-5) /lpf U Epithel Cells (Auto) (0-5) /lpf Urine Bacteria (Auto) (Negative) Diagnostic Findings XR KUB/Abdomen 1 view CLINICAL HISTORY: SBO TECHNIQUE: 1 view of the abdomen was obtained. Comparison: Comparison is made to CT abdomen pelvis 05/18/2022 FINDINGS: Lung bases are unremarkable. Degenerative changes are seen in the visualized skeleton. There is gaseous dilation of the small bowel measuring up to 38 mm. Small stool burden is seen. IMPRESSION: Gaseous dilation of the small bowel compatible with small bowel obstruction.
--- NOTE | 2022-05-19 09:42 | XRay Report ---
XR KUB/Abdomen 1 view CLINICAL HISTORY: SBO TECHNIQUE: 1 view of the abdomen was obtained. Comparison: Comparison is made to CT abdomen pelvis 05/18/2022 FINDINGS: Lung bases are unremarkable. Degenerative changes are seen in the visualized skeleton. There is gaseo us dilation of the small bowel measuring up to 38 mm. Small stool burden is seen. IMPRESSION: Gaseous dilation of the small bowel compatible with small bowel obstruction. ACT 112: Negative or not required by law. Electronically signed by: Robert Starr M.D. 05/19/2022 9:41 AM
--- NOTE | 2022-05-19 12:23 | CT Scan Report ---
CT head/brain wo con CLINICAL HISTORY: 82 years-old Male with Change in mental status. Acutely altered mental status TECHNIQUE: Multiple axial CT images of the head were obtained without contrast. A dose lowering tech nique was utilized adhering to the principles of ALARA. CT DOSE: 614.27 mGy.cm COMPARISON: 05/18/2022 FINDINGS: No acute intracranial hemorrhage, midline shift, intracranial mass, hydrocephalus, territorial ischem ia or abnormal extra-axial collection. Involutional changes of the brain parenchyma. Mild white matte r hypodensities are suggestive of chronic microvascular ischemic disease. 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 Cerebral vascular calcifications. The calvarium is intact. A nasogastric tube is noted. Prior bilateral lens repair. The paranasal sinu ses, mastoid air cells, and middle ear cavities are clear. IMPRESSION: No acute intracranial abnormality. ACT 112: Negative or not required by law. The above report was generated using voice recognition software. It may contain grammatical, syntax o r spelling errors. Electronically signed by: Dany Gandhi M.D. 05/19/2022 12:22 PM
--- NOTE | 2022-05-19 17:36 | Hospitalist Progress Note ---
Date of Service May 19, 2022 Assessment & Plan (1) Pulmonary embolism: Plan: Acute Pulmonary Embolism Right lower extremity DVT Possible PE due to right femoral DVT --CTA showed Extensive right main, lobar, segmental, and subsegmental pulmonary emboli --Venous Doppler:The right common femoral vein is patent. There is occlusive thrombus seen within the right superficial femoral, popliteal, and peroneal veins. The left deep venous structures appear patent. --ECHO: Normal LV chamber size with mild concentric LVH. Normal LV systolic function, EF 60 to 65%. No segmental left ventricle wall motion abnormality noted. Grade 1 diastolic dysfunction. Right ventricle cavity size is normal. Right ventricle systolic function is borderline reduced. Mild mitral regurgitation. Borderline pulmonary hypertension with a PA systolic pressure of 41 mmHg assuming a right atrial pressure of 3 mmHg. -- Continue IV heparin --Saturating well on room air next Continue current management Small bowel obstruction --CT ABD:Findings consistent with a high-grade small bowel obstruction, as described above. Multiple transition points within the right lower quadrant. Moderate wall thickening of several ileal loops with associated mesenteric stranding and interloop fluid/ascites. A closed loop small bowel obstruction with bowel ischemia cannot be excluded. No pneumatosis, portal venous gas or free air. -Appreciate surgery input Conservative management for now Continue bowel rest, IV fluids Pain control continue NG tube KUB today showed findings suggestive of persistent small bowel obstruction Continue management as per surgery H/O CVA --CT Head:No acute intracranial findings. Monitor GERD on PPI Prediabetes HbA1C:5.9 in Feb 2022 Troponin elevation Likely type II DC secondary to PE DVT Px: IV heparin Code Status Full code Disposition PT/OT prior to discharge Admission and Anticipated Discharge Date Admission Date: May 18, 2022 Subjective Patient is seen and examined at bedside Poor historian Lethargic during my encounter today CT head showed no acute process Updated patient's over the phone Discussed with surgery today KUB today showed findings compatible with small bowel obstruction Review of Systems Review of Systems: Other Physical Exam Physical Exam: Physical Exam: Vitals signs as noted above General Appearance:Thin, frail, chronically appearing, no apparent distress Head: normocephalic, Atraumatic, +NG Eyes: normal inspection, EOMI Neck: supple, Trachea midline Respiratory/Chest: Normal breath sounds, CTA, No accessory muscle use Cardiovascular: S1, S2, No murmur Abdomen/GI:Soft, Non tender, decreased Bowel sounds Extremities/Musculoskeletal:normal inspection, mild edema Neurologic/Psych:AAOX1, mild hearing impairment grossly no focal neurological deficits, +Resting tremor Skin: normal color, warm Results & Data Results & Data ([facility]) Vital Signs (Past 12 Hours) Vital Signs Temp Pulse Pulse Resp BP Pulse Ox O2 Del Method 05/19/22 15:11 36.8 C 80 18 177/90 H 93 Room Air 05/19/22 11:29 36.9 C 80 16 148/83 H 93 Room Air 05/19/22 07:00 81 05/19/22 08:00 Room Air 05/19/22 07:22 37.0 C 84 16 131/88 93 Room Air Laboratory Results Short CBC 05/19/22 Range/Units 06:54 WBC 11.46 H (4.8-10.8) K/ul Hgb 13.3 L (14.0-18.0) g/dl Hct 39.6 L (40.1-51.0) % Plt Count 243 (130-400) K/uL BMP 05/19/22 06:54 Sodium 140 Potassium 3.8 Chloride 107 Carbon Dioxide 26 BUN 17 Creatinine 0.85 Glucose 105 H Calcium 8.2 L
[2022-05-19] MEDS ORDERED: ALBUT/IPRATROP 3MG/0.5MG NEB 3 ML VIAL NEB STA (20:08)
--- NOTE | 2022-05-19 20:27 | XRay Report ---
XR chest 1V portable HISTORY: cough COMPARISON: Chest 05/18/2022. FINDINGS: The nasogastric tube terminates below the diaphragm. The tip is not included on this study. No pneumothorax. No pleural effusions. Left basilar linear densities favor subsegmental atelectasis. Otherwise, the lungs are clear. The heart is normal in size. No evidence for pulmonary edema. IMPRESSION: Nasogastric tube terminates below the diaphragm. Otherwise, no acute process within the chest. ACT 112: Negative or not required by law. Electronically signed by: Sebastian Lincoln M.D. 05/19/2022 8:26 PM
[2022-05-19] MEDS: HEPARIN SODIUM/DEXTROSE 25,000 UNITS/500 ML BAG IV SCH (20:53)
[2022-05-19 21:06] LABS: Partial Thromboplastin Ratio 1.9
[2022-05-19 21:10] LABS: Partial Thromboplastin Time 51.6 Seconds (21.0-31.0)
[2022-05-19] MEDS: LATANOPROST 0.005% OP SOLN 2.5 ML BTL OPB SCH (21:18)
[2022-05-19] MEDS: LACTATED RINGER'S 1,000 ML IV SCH (21:18)
[2022-05-19] MEDS: CARBIDOPA/LEVODOPA 25/100MG EXT REL TAB PO SCH (21:19)
[2022-05-20 07:08] LABS: Hematocrit (blood only) 37.3 % (40.1-51.0); Hemoglobin 12.7 g/dl (14.0-18.0); Platelet Count 217 K/uL (130-400); RDW Coefficient of Variation 12.1 % (11.5-14.5); RDW Standard Deviation 40.5 fL (36.4-46.3); White Blood Count 9.87 K/ul (4.8-10.8)
--- NOTE | 2022-05-20 07:18 | XRay Report ---
KUB CLINICAL HISTORY: follow up SBO COMPARISON STUDY: CT of the abdomen and pelvis May and KUB May 19, 2022. FINDINGS: Tip of nasogastric tube is within the stomach. Multiple moderately dilated small bowel loop s measure up to 4.4 cm in caliber. Small bowel dilatation is similar to prior exam. No radiographic e vidence for pneumatosis. No free air is identified although sensitivity is diminished on this supine exam. IMPRESSION: Findings consistent with persistent small bowel obstruction. ACT 112: Negative or not required by law. Electronically signed by: Teo Galvan M.D. 05/20/2022 7:16 AM
[2022-05-20 07:36] LABS: BUN Creatinine Ratio 18.4 (10-20); Calcium 8.2 mg/dl (8.5-10.1); Est GFR (African American) 99.9 ml/min; Est GFR (Non-African American) 86.2 ml/min; Magnesium 1.8 mg/dl (1.7-2.4); Potassium 3.5 mmol/L (3.5-5.1)
[2022-05-20] MEDS: PANTOprazole 40 MG in SYRINGE 0 ML IV SCH (07:57)
[2022-05-20] MEDS: CARBIDOPA/LEVODOPA 25/100MG TAB PO SCH ×3 (07:57→17:32)
[2022-05-20 08:09] LABS: Partial Thromboplastin Time 55.2 Seconds (21.0-31.0)
--- NOTE | 2022-05-20 08:15 | Hospitalist Progress Note ---
Date of Service May 20, 2022 Assessment & Plan (1) Pulmonary embolism: Plan: Acute Pulmonary Embolism Right lower extremity DVT Possible PE due to right femoral DVT --CTA showed Extensive right main, lobar, segmental, and subsegmental pulmonary emboli --Venous Doppler:The right common femoral vein is patent. There is occlusive thrombus seen within the right superficial femoral, popliteal, and peroneal veins. The left deep venous structures appear patent. --ECHO: Normal LV chamber size with mild concentric LVH. Normal LV systolic function, EF 60 to 65%. No segmental left ventricle wall motion abnormality noted. Grade 1 diastolic dysfunction. Right ventricle cavity size is normal. Right ventricle systolic function is borderline reduced. Mild mitral regurgitation. Borderline pulmonary hypertension with a PA systolic pressure of 41 mmHg assuming a right atrial pressure of 3 mmHg. -- Continue IV heparin -currently on 4L suppl. O2 - discussed w/ pulm./ hemodialysis rn - cont. IV heparin Continue current management Small bowel obstruction --CT ABD:Findings consistent with a high-grade small bowel obstruction, as described above. Multiple transition points within the right lower quadrant. Moderate wall thickening of several ileal loops with associated mesenteric stranding and interloop fluid/ascites. A closed loop small bowel obstruction with bowel ischemia cannot be excluded. No pneumatosis, portal venous gas or free air. -Appreciate surgery input Conservative management for now Continue bowel rest, IV fluids Pain control continue NG tube Repeat KUB today c/w small bowel obstruction Discussed w/ surgery - thought about small bowel follow through study - but don't think pt can tolerate - per surgery discussed w/ Continue management as per surgery Failure to thrive - pt barely responsive today, not answering questions, hardly following any commands - seen by hemodialysis rn, surgery, neurology also consulted, appreciate their input - per hemodialysis rn - palliative med. recommended H/O CVA --CT Head:No acute intracranial findings. Monitor GERD on PPI Prediabetes HbA1C:5.9 in Feb 2022 Troponin elevation Likely type II AK secondary to PE DVT Px: IV heparin Code Status Full code Disposition - uncertain PT/OT prior to discharge Admission and Anticipated Discharge Date Admission Date: May 18, 2022 Subjective Patient is seen in follow up of PE, SBO, Parkinson's dis. Lethargic yesterday and today, this AM present with RN at the bedside - pt ba rely responding to voice and sternal rub during my exam Discussed with hemodialysis rn, surgery, and neurology today KUB c/w small bowel obstruction Ordered CT head, lactate, ABG Per surg. - thought about small bowel follow through but pt not likely to tolerate Per hemodialysis rn - failure to thrive - recommend palliative med. consult Review of Systems Review of Systems: All systems reviewed & are unremarkable except as noted in Subjective Physical Exam Physical Exam: General Appearance:Thin, frail, chronically appearing, no apparent distress, on NC, +NGT Head: normocephalic, Atraumatic, +NG Eyes: normal inspection, EOMI Neck: supple, Trachea midline Respiratory/Chest: Normal breath sounds, CTA, No accessory muscle use Cardiovascular: S1, S2, No murmur Abdomen/GI:Soft, Non tender, +Bowel sounds Extremities/Musculoskeletal:normal inspection, mild edema Neurologic/Psych: pt not opening eyes, not following commands, not answering any questions, + some movement spontaneously Skin: normal color, warm Results & Data Results & Data ([facility]) Vital Signs (Past 12 Hours) Vital Signs Temp Pulse Pulse Resp BP Pulse Ox O2 Del Method 05/20/22 07:56 37.4 C 89 16 116/98 93 Oxymask 05/20/22 07:00 74 05/20/22 03:25 36.9 C 88 20 150/86 H 91 Oxymask 05/20/22 00:20 87 05/19/22 22:58 36.5 C 97 H 22 144/98 H 92 Oxymask 05/19/22 22:36 Oxymask 05/19/22 20:25 82 22 94 Room Air O2 Flow Rate 05/20/22 07:56 4 05/20/22 07:00 05/20/22 03:25 2 05/20/22 00:20 05/19/22 22:58 2 05/19/22 22:36 2 05/19/22 20:25 Laboratory Results 05/20/22 05/20/22 05/20/22 Range/Units 06:38 06:38 06:38 WBC 9.87 (4.8-10.8) K/ul RBC 4.10 L (4.63-6.08) M/uL Hgb 12.7 L (14.0-18.0) g/dl Hct 37.3 L (40.1-51.0) % MCV 91.0 (80.0-100.0) fL MCH 31.0 (25.0-34.0) pg MCHC 34.0 (32.0-36.0) g/dL RDW Std Deviation 40.5 (36.4-46.3) fL RDW Coeff of Jm 12.1 (11.5-14.5) % Plt Count 217 (130-400) K/uL MPV 10.0 (9.4-12.4) fL APTT 55.2 H* (21.0-31.0) Seconds PTT Ratio 2.0 Sodium 139 (136-145) mmol/L Potassium 3.5 (3.5-5.1) mmol/L Chloride 105 (98-107) mmol/L Carbon Dioxide 28 (21-32) mmol/L Anion Gap 6 (3-11) BUN 14 (6-23) mg/dl Creatinine 0.76 (0.6-1.4) mg/dl Est Cr Clr Drug Dosing 68.0 ml/min Est GFR ( Amer) 99.9 ml/min Est GFR (Non-Af Amer) 86.2 ml/min BUN/Creatinine Ratio 18.4 (10-20) Glucose 124 H (70-99(Fasting)) mg/dl Calcium 8.2 L (8.5-10.1) mg/dl Phosphorus 3.0 (2.5-4.9) mg/dl Magnesium 1.8 (1.7-2.4) mg/dl 05/19/22 Range/Units 20:27 WBC (4.8-10.8) K/ul RBC (4.63-6.08) M/uL Hgb (14.0-18.0) g/dl Hct (40.1-51.0) % MCV (80.0-100.0) fL MCH (25.0-34.0) pg MCHC (32.0-36.0) g/dL RDW Std Deviation (36.4-46.3) fL RDW Coeff of Jm (11.5-14.5) % Plt Count (130-400) K/uL MPV (9.4-12.4) fL APTT 51.6 H* (21.0-31.0) Seconds PTT Ratio 1.9 Sodium (136-145) mmol/L Potassium (3.5-5.1) mmol/L Chloride (98-107) mmol/L Carbon Dioxide (21-32) mmol/L Anion Gap (3-11) BUN (6-23) mg/dl Creatinine (0.6-1.4) mg/dl Est Cr Clr Drug Dosing ml/min Est GFR ( Amer) ml/min Est GFR (Non-Af Amer) ml/min BUN/Creatinine Ratio (10-20) Glucose (70-99(Fasting)) mg/dl Calcium (8.5-10.1) mg/dl Phosphorus (2.5-4.9) mg/dl Magnesium (1.7-2.4) mg/dl Medications Administered Current Inpatient Medications Carbidopa/Levodopa (Carbidopa/Levodopa 25/100mg Tab) 2 tab PO TIDM LACEY Stop: 06/17/22 07:59 Last Admin: 05/20/22 07:57 Dose: Not Given Carbidopa/Levodopa (Carbidopa/Levodopa 25/100mg Ext Rel Tab) 1 tab PO HS LACEY Stop: 06/17/22 20:59 Last Admin: 05/19/22 21:19 Dose: 1 tab Heparin Sodium/Dextrose (Heparin Sodium/Dextrose) 25,000 units in 500 mls @ 13 mls/hr IV .Q24H LACEY; Protocol Stop: 06/17/22 01:44 Last Titration: 05/20/22 07:10 Dose: 650 units/hr, 13 mls/hr Acetaminophen (Ofirmev) 1,000 mg in 100 mls @ 400 mls/hr IV Q8H PRN PRN Reason: fever/pain Stop: 05/21/22 05:08 Promethazine HCl 6.25 mg/ (Sodium Chloride) 50.25 mls @ 201 mls/hr IV Q6H PRN PRN Reason: Nausea And Vomiting Stop: 06/17/22 05:08 Pantoprazole Sodium 40 mg/ (Syringe) 10 mls @ 5 mls/min IV DAILY LACEY Stop: 06/18/22 08:59 Last Admin: 05/20/22 07:57 Dose: 5 mls/min Lactated Ringer's (Lr) 1,000 mls @ 40 mls/hr IV .Q24H LACEY Stop: 06/18/22 20:44 Last Admin: 05/19/22 21:18 Dose: 40 mls/hr Potassium Chloride (K Alberto / Wtr) 10 meq in 100 mls @ 100 mls/hr IV Q1H LACEY Stop: 05/20/22 10:14 Latanoprost (Latanoprost 0.005% Op Soln 2.5 Ml Btl) 1 drops OPB HS LACEY Stop: 06/17/22 20:59 Last Admin: 05/19/22 21:18 Dose: 1 drops
--- NOTE | 2022-05-20 09:14 | Critical Care Consultation ---
Date of Consultation May 20, 2022 Assessment & Plan (1) Failure to thrive: Patient essentially has adult failure to thrive due to bowel obstruction and chronic illness from Parkinson's disease. Recommend palliative care consultation. Defer TPN to primary team and surgical team. (2) Lethargy: Secondary to underlying bowel obstruction and element of metabolic encephalopathy. Patient is able to follow simple commands and is protecting his airway. No evidence of hypercapnia on ABG. CT head negative for acute bleed. Consider EEG to rule out subclinical seizures. Consider neurology consultation. Avoid sedating agents. No ICU needs required at this time. I recommend that the primary team have an in-depth discussion with the family regarding his CODE STATUS as his prognosis is poor and he would unlikely survive a cardiac arrest. (3) Pulmonary embolism: Continue heparin infusion and transition to orals when able to tolerate. History of Present Illness Reason for Consultation: Altered mental status Attending Physician: Brent Howard MD History of Present Illness 82-year-old male with a history of Parkinson's disease and prior CVA who presented to the hospital due to weakness. He was also found to have a pulmonary embolism. ICU was consulted due to patient's altered mental status. He apparently was difficult to arouse per nursing this morning. He had an ABG today which demonstrated respiratory alkalosis. He is needing 4 L of supplemental oxygen saturating in the high to mid 90s. He is currently on a heparin infusion for the PE. Surgery is following. I discussed with the surgery PA. They wanted a small bowel follow-through, but are hesitant to this study at this time given his overall presentation. His p.o. intake has been minimal. He denies any pain to me. He is able to follow simple commands like squeezing my fingers and wiggling his toes. He is also able to barely lift his head off the pillow. He is certainly not obtunded. His labs are otherwise generally stable. Allergies Allergy/AdvReac Type Severity Reaction Status Date / Time No Known Allergies Allergy Verified 05/18/22 02:11 Home Medications Medication Instructions Recorded Confirmed Type ascorbic acid (vitamin C) 500 mg 500 mg PO DAILY 03/08/20 05/18/22 History tablet (Vitamin C) calcium carbonate 500 mg calcium 500 mg PO DAILY 01/17/22 05/18/22 History (1,250 mg) tablet fish, borage, flaxseed oils-omega 1 cap PO DAILY 01/17/22 05/18/22 History 3,6,9 comb no.1 1,200 mg capsule ([place] 3-6-9) latanoprost 0.005 % eye drops 1 drp OPB HS 01/17/22 05/18/22 History qweoswtqokhd-xop-quzrc acid-vit 1 tab PO DAILY 01/17/22 05/18/22 History K-lycop 400 mcg-20 mcg-370 mcg tablet (Men's 50 Plus Multivitamin) omeprazole 20 mg capsule,delayed 20 mg PO DAILYBB 01/17/22 05/18/22 History release saw palmetto 450 mg capsule 0 mg PO DAILY 01/17/22 05/18/22 History suvorexant 5 mg tablet (Belsomra) 5 mg PO HS PRN Insomnia 01/17/22 05/18/22 History carbidopa 25 mg-levodopa 100 mg 2 tab PO TID 05/18/22 05/18/22 History tablet carbidopa ER 25 mg-levodopa 100 mg 1 tab PO HS 05/18/22 05/18/22 History tablet,extended release polyethylene glycol 3350 17 gram 17 g PO DAILY 05/18/22 05/18/22 History oral powder packet (Miralax) sennosides 8.6 mg tablet (senna) 8.6 mg PO DAILY 05/18/22 05/18/22 History Patient History Medical History (Updated 05/20/22 @ 10:23 by Leonardo Fitch MD) CKD (chronic kidney disease) stage 3, GFR 30-59 ml/min Failure to thrive HLD (hyperlipidemia) Lethargy No pertinent family history Parkinson disease Prediabetes Surgical History S/P appendectomy Family History Other Family history non-contributory Social History Smoking Status: Unknown if ever smoked Preferred Language: Ghanaian Communication Ability: Effective marital status: Current Living Situation: Assisted Current Living Situation Comment: Pt states he lives at the [facility] Feels Safe at Home: Yes Safety Concerns: Feels Safe At This Time Assistive Devices: Cane Review of Systems Review of Systems: Limited history as patient is lethargic, but responsive to commands. No obvious pain or discomfort. Physical Exam Physical Exam: Constitutional: Lethargic appearing frail male in no distress. Eyes: Pupils are equal round and reactive to light. Conjunctivae are normal. Anicteric sclera. Ears nose, mouth and throat: Mallampati class 1 Normal posterior oropharynx. Uvula is midline. NG tube in place. Neck: Trachea is midline. Visual inspection is normal. Respiratory: Clear to auscultation bilaterally. No use of accessory muscles. No significant clubbing noted. Cardiovascular: Regular rate and rhythm. No murmurs. No edema. Gastrointestinal: Normal bowel sounds, soft, nontender and nondistended. No hepatosplenomegaly noted. Musculoskeletal: No cyanosis. Patient is able to move all extremities. Strength is 5 out of 5 in the upper and lower extremities. Skin: No rashes, warm dry and intact. Neurologic: No obvious focal neurological deficits seen. Psychiatric: Lethargic Results & Data Results & Data ([facility]) Vital Signs (Past 12 Hours) Vital Signs Temp Pulse Pulse Resp BP Pulse Ox O2 Del Method 05/20/22 07:56 37.4 C 89 16 116/98 93 Oxymask 05/20/22 07:00 74 05/20/22 03:25 36.9 C 88 20 150/86 H 91 Oxymask 05/20/22 00:20 87 05/19/22 22:58 36.5 C 97 H 22 144/98 H 92 Oxymask 05/19/22 22:36 Oxymask O2 Flow Rate 05/20/22 07:56 4 05/20/22 07:00 05/20/22 03:25 2 05/20/22 00:20 05/19/22 22:58 2 05/19/22 22:36 2 Coding Level of Care Code 32239 Inpt Consult Level 4 Diagnoses Failure to thrive Lethargy R53.83 Pulmonary embolism I26.99
[2022-05-20 09:36] LABS: Base Excess ABG 6.6 mEq/L (-9-1.8); HCO3 ABG 31 mmol/L (19-24); Oxygen Saturation ABG 99.8 % (90-95); PCO2 ABG 40 mmHg (35-46); PO2 ABG 87 mmHg (80-95); pH ABG 7.49 (7.35-7.45)
[2022-05-20 09:39] LABS: Allen Test Pos (Pos)
--- NOTE | 2022-05-20 10:01 | CT Scan Report ---
CT head/brain wo con CLINICAL HISTORY: 82 years-old Male with AMS. Acutely altered mental status TECHNIQUE: Multiple axial CT images of the head were obtained without contrast. A dose lowering tech nique was utilized adhering to the principles of ALARA. CT DOSE: 1132.92 mGycm COMPARISON: Head CT 05/19/2022 FINDINGS: Motion degraded exam. No acute intracranial hemorrhage, midline shift, intracranial mass, hydrocephal us, territorial ischemia or abnormal extra-axial collection. Involutional changes of the brain parenc hyma. Mild white matter hypodensities are suggestive of chronic microvascular ischemic disease. Chron ic right cerebellar infarcts. Cerebral vascular calcifications. The calvarium is intact. A nasogastri c tube is noted. Prior bilateral lens repair. The paranasal sinuses, mastoid air cells, and middle ea r cavities are clear. IMPRESSION: Motion degraded exam. No acute intracranial abnormality identified. ACT 112: Negative or not required by law. The above report was generated using voice recognition software. It may contain grammatical, syntax o r spelling errors. Electronically signed by: Dany Gandhi M.D. 05/20/2022 9:59 AM
[2022-05-20] MEDS: POTASSIUM CHLORIDE / WTR 10 MEQ/100 ML PLCT IV SCH ×2 (10:12→11:07)
--- NOTE | 2022-05-20 10:36 | Surgery Progress Note ---
Date of Service May 20, 2022 Assessment & Plan (1) SBO (small bowel obstruction): (2) Parkinson disease: (3) Pulmonary embolism: Plan 82-year-old male with history of Parkinson's, chronic kidney disease stage III, prediabetes, hyperlipidemia presented to the emergency room with achy abdominal pain as well as increased weakness. CT scan of the abdomen and pelvis showing high-grade small bowel obstruction with 2 transition points as well as multiple pulmonary emboli. 05/20/2022: His is obtunded today, responsive but significantly declined compared to yesterday His abdomen is soft without any distention, NGT output with about 400 cc output KUB showing persistent SBO but there is air in the colon CT of head without acute abnormality Plan: Given his current mental status, comorbidities, and multiple pulmonary emboli would not recommend surgical intervention at this time. Dr. Fitch with ICU has seen patient and was able to awake patient. Obtained CT of head and ABG. Recommending palliative consultation. Was planning on order SBFT study today to evaluate SBO however do not believe patient can tolerate the study at this time. Continue NGT to LIS Continue current medical management Agree with palliative consultation Dr. Munroe has seen and examined patient and agrees with above. Admission and Anticipated Discharge Date Admission Date: May 18, 2022 Subjective unable to obtain ROS as patient obtunded today per nurse was not very response to sternal rub, ICU coming to see patient Had about 400 cc out of NGT this am Physical Exam Constitutional: + ill appearing and + frail appearing; not in distress Neck: normal visual inspection and trachea midline Respiratory: normal respiratory effort; no respiratory distress and no labored breathing Gastrointestinal (Abdomen): Inspection/Auscultation: abdomen normal to inspection; abdomen not distended Percussion/Palpation: abdomen soft; abdomen nontender, no guarding and abdomen not rigid NGT present with brownish output in cannister Skin: no rashes, warm and dry Psychiatric: Orientation: + not oriented x 3 Obtunded Results & Data ([facility]) Vital Signs (Past 12 Hours) Vital Signs Temp Pulse Pulse Resp BP Pulse Ox O2 Del Method 05/20/22 07:56 37.4 C 89 16 116/98 93 Oxymask 05/20/22 07:00 74 05/20/22 03:25 36.9 C 88 20 150/86 H 91 Oxymask 05/20/22 00:20 87 05/19/22 22:58 36.5 C 97 H 22 144/98 H 92 Oxymask 05/19/22 22:36 Oxymask O2 Flow Rate 05/20/22 07:56 4 05/20/22 07:00 05/20/22 03:25 2 05/20/22 00:20 05/19/22 22:58 2 05/19/22 22:36 2 Laboratory Results 05/20/22 05/20/22 05/20/22 Range/Units 09:18 09:18 06:38 WBC (4.8-10.8) K/ul RBC (4.63-6.08) M/uL Hgb (14.0-18.0) g/dl Hct (40.1-51.0) % MCV (80.0-100.0) fL MCH (25.0-34.0) pg MCHC (32.0-36.0) g/dL RDW Std Deviation (36.4-46.3) fL RDW Coeff of Jm (11.5-14.5) % Plt Count (130-400) K/uL MPV (9.4-12.4) fL APTT 55.2 H* (21.0-31.0) Seconds PTT Ratio 2.0 ABG pH 7.49 H (7.35-7.45) ABG pCO2 40 (35-46) mmHg ABG pO2 87 (80-95) mmHg ABG HCO3 31 H (19-24) mmol/L ABG O2 Saturation 99.8 H (90-95) % ABG Base Excess 6.6 H (-9-1.8) mEq/L Jun Test Pos (Pos) Oxygen Given Sodium (136-145) mmol/L Potassium (3.5-5.1) mmol/L Chloride (98-107) mmol/L Carbon Dioxide (21-32) mmol/L Anion Gap (3-11) BUN (6-23) mg/dl Creatinine (0.6-1.4) mg/dl Est Cr Clr Drug Dosing ml/min Est GFR ( Amer) ml/min Est GFR (Non-Af Amer) ml/min BUN/Creatinine Ratio (10-20) Glucose (70-99(Fasting)) mg/dl Lactate 0.9 (0.4-2.0) mmol/L Calcium (8.5-10.1) mg/dl Phosphorus (2.5-4.9) mg/dl Magnesium (1.7-2.4) mg/dl 05/20/22 05/20/22 05/19/22 Range/Units 06:38 06:38 20:27 WBC 9.87 (4.8-10.8) K/ul RBC 4.10 L (4.63-6.08) M/uL Hgb 12.7 L (14.0-18.0) g/dl Hct 37.3 L (40.1-51.0) % MCV 91.0 (80.0-100.0) fL MCH 31.0 (25.0-34.0) pg MCHC 34.0 (32.0-36.0) g/dL RDW Std Deviation 40.5 (36.4-46.3) fL RDW Coeff of Jm 12.1 (11.5-14.5) % Plt Count 217 (130-400) K/uL MPV 10.0 (9.4-12.4) fL APTT 51.6 H* (21.0-31.0) Seconds PTT Ratio 1.9 ABG pH (7.35-7.45) ABG pCO2 (35-46) mmHg ABG pO2 (80-95) mmHg ABG HCO3 (19-24) mmol/L ABG O2 Saturation (90-95) % ABG Base Excess (-9-1.8) mEq/L Jun Test (Pos) Oxygen Given Sodium 139 (136-145) mmol/L Potassium 3.5 (3.5-5.1) mmol/L Chloride 105 (98-107) mmol/L Carbon Dioxide 28 (21-32) mmol/L Anion Gap 6 (3-11) BUN 14 (6-23) mg/dl Creatinine 0.76 (0.6-1.4) mg/dl Est Cr Clr Drug Dosing 68.0 ml/min Est GFR ( Amer) 99.9 ml/min Est GFR (Non-Af Amer) 86.2 ml/min BUN/Creatinine Ratio 18.4 (10-20) Glucose 124 H (70-99(Fasting)) mg/dl Lactate (0.4-2.0) mmol/L Calcium 8.2 L (8.5-10.1) mg/dl Phosphorus 3.0 (2.5-4.9) mg/dl Magnesium 1.8 (1.7-2.4) mg/dl Diagnostic Findings KUB CLINICAL HISTORY: follow up SBO COMPARISON STUDY: CT of the abdomen and pelvis May and KUB May 19, 2022. FINDINGS: Tip of nasogastric tube is within the stomach. Multiple moderately dilated small bowel loops measure up to 4.4 cm in caliber. Small bowel dilatation is similar to prior exam. No radiographic evidence for pneumatosis. No free air is identified although sensitivity is diminished on this supine exam. IMPRESSION: Findings consistent with persistent small bowel obstruction. CT head/brain wo con CLINICAL HISTORY: 82 years-old Male with AMS. Acutely altered mental status TECHNIQUE: Multiple axial CT images of the head were obtained without contrast. A dose lowering technique was utilized adhering to the principles of ALARA. CT DOSE: 1132.92 mGycm COMPARISON: Head CT 05/19/2022 FINDINGS: Motion degraded exam. No acute intracranial hemorrhage, midline shift, intracranial mass, hydrocephalus, territorial ischemia or abnormal extra-axial collection. Involutional changes of the brain parenchyma. Mild white matter hypodensities are suggestive of chronic microvascular ischemic disease. Chronic right cerebellar infarcts. Cerebral vascular calcifications. The calvarium is intact. A nasogastric tube is noted. Prior bilateral lens repair. The paranasal sinuses, mastoid air cells, and middle ear cavities are clear. IMPRESSION: Motion degraded exam. No acute intracranial abnormality identified.
--- NOTE | 2022-05-20 11:10 | Neurology Consultation ---
Date of Consultation May 20, 2022 Assessment & Plan (1) Parkinson disease: (2) Lethargy: Plan The patient has a significant Parkinson's disease picture (has been off medication for a couple of days now) with significant cogwheel rigidity, bradykinesia but no resting tremor. He has not been able to get any medication because he is NPO because of a severe small bowel obstruction and he is getting suctioning through an NG tube. The patient has pulmonary emboli from DVT in the right lower extremity and is on heparin. He is lethargic but arousable and follows commands. His medical conditions can be responsible for this. There are no other obvious etiologies for encep halopathy and sleepiness. Recommendations: 1. when able, an MRI of the brain would be reasonable to obtain. 2. Unfortunately we cannot give any Parkinson's medication IV or IM. He has to be able to take it via an NG tube or p.o.. Once he is able to take p.o. via an NG tube, we would restart him on his usual doses. 3. Physical therapy to keep his limbs from locking up as much as possible. 4. Otherwise I will follow. Overall, I spent a total of 60 minutes with this case including review of records, review of CT films, direct evaluation the patient at bedside, and discussion of the case with the patient and RN at bedside, the patient's at bedside, and Dr. Howard, including differential diagnosis and treatment options. History of Present Illness Reason for Consultation: Patient has an 80-year-old, who I was asked to see the request of Dr. Howard, neurologic consultation regarding Parkinson's disease and other issues. Requesting Physician: Dr. Howard Attending Physician: Brent Howard MD History of Present Illness Patient has a history of Parkinson's disease, followed by Dr. Riley currently on carbidopa / levodopa 25/100, 2 tablets 3 times a day plus a 25/100 ER carbidopa levodopa at bedtime. Apparently the diagnosis was made a year so ago and the medication has helped. He is on trazodone 50 milligrams at bedtime. He has gastroesophageal reflux disease. The patient was admitted on May 18 with DVT in the right lower extremity, right lobar pulmonary emboli noted on CT angiography of the chest, and high- grade small bowel obstruction noted on CT scan of the abdomen. Echocardiogram was otherwise unremarkable and chest x-ray was clear at the time of admission. Laboratory studies revealed a glucose of 180 but otherwise normal Chem profile. White count was elevated but hemoglobin hematocrit were normal. Troponin was elevated TSH was 3. CT scan on admission was unremarkable. Patient has been on heparin. The patient had altered mental status and lethargy over the last [address] scan of the head on May 19, then again on May 20 were both unremarkable for acute changes or bleeding. The patient complaints of pain in his chest. Currently blood pressure is 116/98 and he is afebrile. Allergies Allergy/AdvReac Type Severity Reaction Status Date / Time No Known Allergies Allergy Verified 05/18/22 02:11 Home Medications Medication Instructions Recorded Confirmed Type ascorbic acid (vitamin C) 500 mg 500 mg PO DAILY 03/08/20 05/18/22 History tablet (Vitamin C) calcium carbonate 500 mg calcium 500 mg PO DAILY 01/17/22 05/18/22 History (1,250 mg) tablet fish, borage, flaxseed oils-omega 1 cap PO DAILY 01/17/22 05/18/22 History 3,6,9 comb no.1 1,200 mg capsule ([place] 3-6-9) latanoprost 0.005 % eye drops 1 drp OPB HS 01/17/22 05/18/22 History rudcmeensrvr-nfg-gkxkg acid-vit 1 tab PO DAILY 01/17/22 05/18/22 History K-lycop 400 mcg-20 mcg-370 mcg tablet (Men's 50 Plus Multivitamin) omeprazole 20 mg capsule,delayed 20 mg PO DAILYBB 01/17/22 05/18/22 History release saw palmetto 450 mg capsule 0 mg PO DAILY 01/17/22 05/18/22 History suvorexant 5 mg tablet (Belsomra) 5 mg PO HS PRN Insomnia 01/17/22 05/18/22 History carbidopa 25 mg-levodopa 100 mg 2 tab PO TID 05/18/22 05/18/22 History tablet carbidopa ER 25 mg-levodopa 100 mg 1 tab PO HS 05/18/22 05/18/22 History tablet,extended release polyethylene glycol 3350 17 gram 17 g PO DAILY 05/18/22 05/18/22 History oral powder packet (Miralax) sennosides 8.6 mg tablet (senna) 8.6 mg PO DAILY 05/18/22 05/18/22 History Patient History Medical History CKD (chronic kidney disease) stage 3, GFR 30-59 ml/min Failure to thrive HLD (hyperlipidemia) Lethargy No pertinent family history Parkinson disease Prediabetes Surgical History S/P appendectomy Family History Other Family history non-contributory Social History Smoking Status: Unknown if ever smoked Preferred Language: Welsh Communication Ability: Effective marital status: Current Living Situation: Prison Current Living Situation Comment: Pt states he lives at the [facility] Feels Safe at Home: Yes Safety Concerns: Feels Safe At This Time Assistive Devices: Cane Review of Systems Review of Systems: Unobtainable due to cognitive status Comprehensive review of systems was on obtainable due to his medical conditions and mental status. He was in pain in his chest. Exam (Neuro) Physical Exam: He is sleepy but arousable with voice. he can be understood somebody has some frequent coughing which hinders our ability to understand his words and his voice is soft and somewhat "mumbly". I do not detect any specific aphasia or dysarthria otherwise. He follows one-step commands fairly well particularly if aroused with stimulation. Pupils are 4 millimeters bilaterally and do react to light. Extraocular eye muscles are intact without nystagmus although he prefers looking to the right than to the left. Neck is supple with no rigidity. There is no facial droop and tongue is midline. He will not hold his arms out much outstretched but he has no resting tremor or other abnormal involuntary movements. He does not seem to be ataxic in the arms. Motor strength is 5/5 diffusely in all major muscle groups in arms and legs both proximally and distally. He has considerable cogwheeling rigidity of the limbs. Reflexes are 2/for the biceps, triceps, brachioradialis, and quadriceps tendons bilaterally. Achilles tendon reflexes are absent bilaterally. Toes are downgoing to plantar stimulation bilaterally. He withdraws quickly to deep stimulation in the feet. Results & Data ([facility]) Vital Signs (Past 12 Hours) Vital Signs Temp Pulse Pulse Resp BP Pulse Ox O2 Del Method 05/20/22 07:56 37.4 C 89 16 116/98 93 Oxymask 05/20/22 07:00 74 05/20/22 03:25 36.9 C 88 20 150/86 H 91 Oxymask 05/20/22 00:20 87 05/19/22 22:58 36.5 C 97 H 22 144/98 H 92 Oxymask O2 Flow Rate 05/20/22 07:56 4 05/20/22 07:00 05/20/22 03:25 2 05/20/22 00:20 05/19/22 22:58 2 PG Care Time/CCT Total # of Minutes Spent Total Time Spent with Patient: Total time spent is greater than 50% in coordination of care (as documented) at patient's floor/unit and/or counseling patient: Coding Level of Care Code 26995 Initial Inpt Care Lvl 3 Diagnoses Parkinson disease G20 Lethargy R53.83 Time Spent (min) 60
--- NOTE | 2022-05-20 11:44 | XRay Report ---
XR chest 1V portable HISTORY: hypoxia COMPARISON: Chest 05/19/2022. FINDINGS: Nasogastric tube terminates below the diaphragm. There is a small left pleural effusion and left basilar airspace opacity. This is new from the prior study. No pneumothorax. The right lung is clear. The heart is top normal in size. There are calcifications within the aortic knob. IMPRESSION: 1. Interval development of a small left pleural effusion and left basilar densities. This could be du e to aspiration. 2. Nasogastric tube terminates below the diaphragm ACT 112: Negative or not required by law. Electronically signed by: Sebastian Lincoln M.D. 05/20/2022 11:43 AM
--- NOTE | 2022-05-20 17:44 | Palliative Care Consultation ---
Date of Consultation May 20, 2022 Assessment & Plan (1) Palliative care encounter: pt is at bedside, We spoke about what palliative medicine is and how we help care for patients with advanced illness. She notes pt is an advanced illness patient. She states she has a son in [place] and feels perhsps it is time to call him and tell him to come see pt. I told her I agreed with that impression. (2) Advanced care planning/counseling discussion: and I spoke at bedside about pt's current illness, prognosis, complications and overall risk factors. we spoke about the multi system failures in progress at this time from renal failure, to PEs, to bowel obstruction and progressive Parkinson's, frailty, failure to thrive, weakness, etc. He is not a candidate for surgery and they have recommended conservative management. We discussed how many of his chronic issues have been chronically progressing and are not curable/reversible diseases. He has been steadily on a decline for over a year. He has needed more help at home and she is devoted to caring for him but recognizes there are needs increasing that she may not be able to meet. She tells me that they live at the [facility], currently in an apartment in the independent living section and she feels he may need care at the assisted living or fpc level. She states they have completed living nelson and produces the original today. In this document pt indicates preference for No Code, no invasive measures, no MICHELLE and if he is in a terminal condition he would like comfort care.A copy of this was made and sent for scanning into EMR. We discussed code status, She knows he would not want CPR/machines, he would prefer a natural . I advised her this is consistent with a code status of DNR/DNI, which she agreed was reasonable and code change order was written. This ACP and GOC discussion took 32minutes. (3) Failure to thrive: (4) Lethargy: (5) Parkinson disease: (6) SBO (small bowel obstruction): Plan * is clear that she would not want pt to suffer if he is not getting better. She wants to be sure we honor his wishes as outlined in living will. She will call their son to come this week. * I advised her that we should see how pt does in next 24-48 hours: if he continues making steady improvements, working towards a SNF rehab dc may not be unreasonable given the stated goal of bringing pt back home to independent living if possible. Alternatively, if he worsens/has acute decline then we would move to a more aggressive comfort focused plan of care and, in accordance with his living will, we would assure he has medications as needed to provide comfort and relief of suffering. * is in agreement with the plan I outlined above. Dr Howard, MATIAS and nursing (Janine) also aware. * I have scheduled a 1030am follow up meeting with for tomorrow. Ilene Sutherland DNP Clinical Director, Palliative Medicine History of Present Illness Reason for Consultation: [facility] Attending Physician: Brent Howard MD History of Present Illness Admitted from home with progressive weakness, declining PO intake and weight loss. 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 Found to have pulmonary emboli, bowel obstruction - he is not a candidate for surgery The CTA revealed extensive right main, lobar, segmental, and subsegmental pulmonary emboli The venous doppler revealed patent right common femoral vein but +occlusive thrombus seen within the right superficial femoral, popliteal, and peroneal veins. The left deep venous structures appear patent. An ECHO was then done which revealed normal LV chamber size with mild concentric LVH. Normal LV systolic function, EF 60 to 65%. No segmental left ventricle wall motion abnormality noted. Grade 1 diastolic dysfunction. Right ventricle cavity size is normal. Right ventricle systolic function is borderline reduced. Mild mitral regurgitation. Borderline pulmonary hypertension with a PA systolic pressure of 41 mmHg assuming a right atrial pressure of 3 mmHg. He is currently on IV heparin At time of my visit, he is resting in bed, not awake or very alert, unable to provide hx or answer questions. His at bedside, provides hx: has been steadily declining, weaker, not eating, +weight loss. He is not a fan of doctoring. She has been pushing him to be seen for a while. They live in an apartment/independent living at [facility]. She is aware he may need more help and feels he might need to move to assisted living or skilled care. they have a son in [place]. she asks if it is time to call him/have him come visit. Allergies Allergy/AdvReac Type Severity Reaction Status Date / Time No Known Allergies Allergy Verified 05/18/22 02:11 Home Medications Medication Instructions Recorded Confirmed Type ascorbic acid (vitamin C) 500 mg 500 mg PO DAILY 03/08/20 05/18/22 History tablet (Vitamin C) calcium carbonate 500 mg calcium 500 mg PO DAILY 01/17/22 05/18/22 History (1,250 mg) tablet fish, borage, flaxseed oils-omega 1 cap PO DAILY 01/17/22 05/18/22 History 3,6,9 comb no.1 1,200 mg capsule ([place] 3-6-9) latanoprost 0.005 % eye drops 1 drp OPB HS 01/17/22 05/18/22 History erqgnexwkmaj-oyz-jrlto acid-vit 1 tab PO DAILY 01/17/22 05/18/22 History K-lycop 400 mcg-20 mcg-370 mcg tablet (Men's 50 Plus Multivitamin) omeprazole 20 mg capsule,delayed 20 mg PO DAILYBB 01/17/22 05/18/22 History release saw palmetto 450 mg capsule 0 mg PO DAILY 01/17/22 05/18/22 History suvorexant 5 mg tablet (Belsomra) 5 mg PO HS PRN Insomnia 01/17/22 05/18/22 History carbidopa 25 mg-levodopa 100 mg 2 tab PO TID 05/18/22 05/18/22 History tablet carbidopa ER 25 mg-levodopa 100 mg 1 tab PO HS 05/18/22 05/18/22 History tablet,extended release polyethylene glycol 3350 17 gram 17 g PO DAILY 05/18/22 05/18/22 History oral powder packet (Miralax) sennosides 8.6 mg tablet (senna) 8.6 mg PO DAILY 05/18/22 05/18/22 History Patient History Medical History (Updated 05/20/22 @ 17:48 by Ilene Sutherland DNP) Advanced care planning/counseling discussion CKD (chronic kidney disease) stage 3, GFR 30-59 ml/min Failure to thrive HLD (hyperlipidemia) Lethargy No pertinent family history Palliative care encounter Parkinson disease Prediabetes Surgical History S/P appendectomy Family History Other Family history non-contributory Social History Smoking Status: Unknown if ever smoked Preferred Language: [place] Communication Ability: Effective marital status: Current Living Situation: [facility] Current [facility] Situation Comment[facility] Feels [facility] at Home: Yes Safety Concerns: Feels Safe At This Time Assistive Devices: Cane Review of Systems Review of Systems: Unobtainable due to cognitive status Physical Exam Physical Exam: Elderly, thin/fraill male resting in bed, lethargic, diaphoretic, flushed cheeks. Bitemp wasting noted. pupils reactive, unable to assess EOMIs. intermittent bronchitic cough. generalized weakness noted. abdomen distended, bowel sound hypoactive. mild grimacing with palpation noted. unable to assess strength. patient lethargic, unable to follow commands, sleeping with intermittent snoring. Results & Data ([facility]) Vital Signs (Past 12 Hours) Vital Signs Temp Pulse Pulse Resp BP Pulse Ox O2 Del Method 05/20/22 15:59 37.6 C 05/20/22 15:41 38.0 C H 87 181/87 H 05/20/22 11:51 37.4 C 84 18 161/94 H 96 Oxymask 05/20/22 07:56 37.4 C 89 16 116/98 93 Oxymask 05/20/22 07:00 74 O2 Flow Rate 05/20/22 15:59 05/20/22 15:41 05/20/22 11:51 4 05/20/22 07:56 4 05/20/22 07:00 Laboratory Results Labs and imaging reviewed PG Care Time/CCT Total # of Minutes Spent Total Time Spent with Patient: Total time spent is greater than 50% in coordination of care (as documented) at patient's floor/unit and/or counseling patient: I spent 82 minutes overall addressing this case: 10 in medical data review/discussion with referring provider(s) and/or preparation for the visit 20 in direct interaction with the patient and discussion with at bedside 32 Advance Care Planning/Goals of Care discussions as detailed above in note (must be >16min) 10 in subsequent review and synthesis of assessment and plan 10 in communicating with other providers regarding the patient's case: [] Prolonged Care Time Prolonged Care Time: Yes Advanced Care Planning 27468 Advanced Care Planning 30 [place] [address] Inpt Consult Level 5 Patient Type New Medical Decision Making High Complexity Diagnoses Palliative care encounter Z51.5 Advanced care planning/counseling discussion Z71.89 Failure to thrive Lethargy R53.83 Parkinson disease G20 SBO (small bowel obstruction) K56.609 Additional Codes Prolonged Care Time - Prolonged Care Time: Yes ([id number]) Advanced Care Planning - 65896 Advanced Care Planning 30 Min: 85311 Advanced Care Planning 30 Min ([id number])
[2022-05-20] MEDS ORDERED: FUROSEMIDE INJ 20 MG/2 ML VIAL IV ONE (18:47)
[2022-05-20] MEDS: AMPICILLIN/SULBACTAM SOD 3,000 MG in 0.9 % SODIUM CHLORIDE 100 ML IV SCH (19:41)
[2022-05-20] MEDS: CARBIDOPA/LEVODOPA 25/100MG EXT REL TAB PO SCH (21:30)
[2022-05-20] MEDS: LATANOPROST 0.005% OP SOLN 2.5 ML BTL OPB SCH (21:31)
[2022-05-20] MEDS: LACTATED RINGER'S 1,000 ML IV SCH (21:31)
[2022-05-21] MEDS: AMPICILLIN/SULBACTAM SOD 3,000 MG in 0.9 % SODIUM CHLORIDE 100 ML IV SCH ×4 (02:18→20:39)
[2022-05-21 07:07] LABS: Hematocrit (blood only) 39.7 % (40.1-51.0); Hemoglobin 13.2 g/dl (14.0-18.0); Mean Corpuscular Hemoglobin 30.5 pg (25.0-34.0); Mean Corpuscular Hgb Conc 33.2 g/dL (32.0-36.0); Mean Corpuscular Volume 91.7 fL (80.0-100.0); Mean Platelet Volume 9.9 fL (9.4-12.4); Platelet Count 242 K/uL (130-400); RDW Coefficient of Variation 12.4 % (11.5-14.5); Red Blood Count 4.33 M/uL (4.63-6.08); White Blood Count 10.48 K/ul (4.8-10.8)
--- NOTE | 2022-05-21 07:35 | Hospitalist Progress Note ---
Date of Service May 21, 2022 Assessment & Plan (1) Pulmonary embolism: Plan: Acute Pulmonary Embolism Right lower extremity DVT Possible PE due to right femoral DVT --CTA showed Extensive right main, lobar, segmental, and subsegmental pulmonary emboli --Venous Doppler:The right common femoral vein is patent. There is occlusive thrombus seen within the right superficial femoral, popliteal, and peroneal veins. The left deep venous structures appear patent. --ECHO: Normal LV chamber size with mild concentric LVH. Normal LV systolic function, EF 60 to 65%. No segmental left ventricle wall motion abnormality noted. Grade 1 diastolic dysfunction. Right ventricle cavity size is normal. Right ventricle systolic function is borderline reduced. Mild mitral regurgitation. Borderline pulmonary hypertension with a PA systolic pressure of 41 mmHg assuming a right atrial pressure of 3 mmHg. -- Continue IV heparin -currently on 4L suppl. O2 via oxymask - discussed w/ pulm./ american history teacher - cont. IV heparin Continue current management Small bowel obstruction --CT ABD:Findings consistent with a high-grade small bowel obstruction, as described above. Multiple transition points within the right lower quadrant. Moderate wall thickening of several ileal loops with associated mesenteric stranding and interloop fluid/ascites. A closed loop small bowel obstruction with bowel ischemia cannot be excluded. No pneumatosis, portal venous gas or free air. -Appreciate surgery input Conservative management for now Continue bowel rest, IV fluids Pain control continue NG tube Repeat KUB yesterday c/w small bowel obstruction Discussed w/ surgery - thought about small bowel follow through study - but don't think pt can tolerate - per surgery discussed w/ Continue management as per surgery 05/21 - Pt reports passing flatus , will repeat KUB today Failure to thrive - pt barely responsive yesterday, not answering questions, hardly following any commands - seen by american history teacher, surgery, neurology also consulted, appreciate their input - per american history teacher - palliative med. recommended, and they were consulted, appreciate their input - today mental status improved H/O CVA --CT Head:No acute intracranial findings. Monitor GERD: on PPI Prediabetes HbA1C:5.9 in Feb 2022 Troponin elevation Likely type II IL secondary to PE DVT Px: IV heparin Code Status - DNR/DNI -discussed CODE STATUS in detail with patient's , who also brought in the paperwork which was copied into the chart. Disposition - uncertain PT/OT prior to discharge Admission and Anticipated Discharge Date Admission Date: May 18, 2022 Subjective Patient is seen in follow up of PE, SBO, Parkinson's dis. Lethargic yesterday and barely responsive, however today his eyes are open and he is able to answer simple questions appropriately. Yesterday patient was also febrile, started on Unasyn As he was barely positive, discussed with american history teacher, neurologist, surgery and palliative medicine with pt's at the bedside Currently he reports feeling thirsty and reports passing flatus Denies chest pain, or increased shortness of breath He is coughing He is on oxymask Will repeat KUB, CXR Review of Systems Review of Systems: All systems reviewed & are unremarkable except as noted in Subjective Physical Exam Physical Exam: General Appearance:Thin, frail, chronically appearing, no apparent distress, on oxymask, +NGT Head: normocephalic, Atraumatic, +NG Eyes: normal inspection, EOMI Neck: supple Respiratory/Chest: Normal breath sounds, CTA, No accessory muscle use Cardiovascular: S1, S2, No murmur Abdomen/GI:Soft, Non tender, +Bowel sounds Extremities/Musculoskeletal:normal inspection, mild edema Neurologic/Psych: pt opening eyes, and answering simple questions appropriately (much improved from previous exam) Skin: normal color, warm Results & Data Results & Data ([facility]) Vital Signs (Past 12 Hours) Vital Signs Temp Pulse Pulse Resp BP Pulse Ox O2 Del Method 05/21/22 07:00 82 05/21/22 03:21 37.3 C 72 18 141/70 H 96 Oxymask 05/21/22 00:25 76 05/20/22 23:00 36.4 C L 71 16 128/71 94 Oxymask 05/20/22 19:57 Oxymask O2 Flow Rate 05/21/22 07:00 05/21/22 03:21 05/21/22 00:25 05/20/22 23:00 05/20/22 19:57 4 Laboratory Results 05/21/22 05/21/22 05/21/22 Range/Units 06:40 06:40 06:40 WBC 10.48 (4.8-10.8) K/ul RBC 4.33 L (4.63-6.08) M/uL Hgb 13.2 L (14.0-18.0) g/dl Hct 39.7 L (40.1-51.0) % MCV 91.7 (80.0-100.0) fL MCH 30.5 (25.0-34.0) pg MCHC 33.2 (32.0-36.0) g/dL RDW Std Deviation 42.0 (36.4-46.3) fL RDW Coeff of Jm 12.4 (11.5-14.5) % Plt Count 242 (130-400) K/uL MPV 9.9 (9.4-12.4) fL APTT 55.8 H* (21.0-31.0) Seconds PTT Ratio 2.0 ABG pH (7.35-7.45) ABG pCO2 (35-46) mmHg ABG pO2 (80-95) mmHg ABG HCO3 (19-24) mmol/L ABG O2 Saturation (90-95) % ABG Base Excess (-9-1.8) mEq/L Jun Test (Pos) Oxygen Given Sodium 139 (136-145) mmol/L Potassium 3.3 L (3.5-5.1) mmol/L Chloride 101 (98-107) mmol/L Carbon Dioxide 33 H (21-32) mmol/L Anion Gap 5 (3-11) BUN 15 (6-23) mg/dl Creatinine 0.94 (0.6-1.4) mg/dl Est Cr Clr Drug Dosing 54.9 ml/min Est GFR ( Amer) 88.4 ml/min Est GFR (Non-Af Amer) 76.3 ml/min BUN/Creatinine Ratio 16.0 (10-20) Glucose 110 H (70-99(Fasting)) mg/dl Lactate (0.4-2.0) mmol/L Calcium 8.6 (8.5-10.1) mg/dl Phosphorus 2.7 (2.5-4.9) mg/dl Magnesium 1.8 (1.7-2.4) mg/dl 05/20/22 05/20/22 Range/Units 09:18 09:18 WBC (4.8-10.8) K/ul RBC (4.63-6.08) M/uL Hgb (14.0-18.0) g/dl Hct (40.1-51.0) % MCV (80.0-100.0) fL MCH (25.0-34.0) pg MCHC (32.0-36.0) g/dL RDW Std Deviation (36.4-46.3) fL RDW Coeff of Jm (11.5-14.5) % Plt Count (130-400) K/uL MPV (9.4-12.4) fL APTT (21.0-31.0) Seconds PTT Ratio ABG pH 7.49 H (7.35-7.45) ABG pCO2 40 (35-46) mmHg ABG pO2 87 (80-95) mmHg ABG HCO3 31 H (19-24) mmol/L ABG O2 Saturation 99.8 H (90-95) % ABG Base Excess 6.6 H (-9-1.8) mEq/L Jun Test Pos (Pos) Oxygen Given Sodium (136-145) mmol/L Potassium (3.5-5.1) mmol/L Chloride (98-107) mmol/L Carbon Dioxide (21-32) mmol/L Anion Gap (3-11) BUN (6-23) mg/dl Creatinine (0.6-1.4) mg/dl Est Cr Clr Drug Dosing ml/min Est GFR ( Amer) ml/min Est GFR (Non-Af Amer) ml/min BUN/Creatinine Ratio (10-20) Glucose (70-99(Fasting)) mg/dl Lactate 0.9 (0.4-2.0) mmol/L Calcium (8.5-10.1) mg/dl Phosphorus (2.5-4.9) mg/dl Magnesium (1.7-2.4) mg/dl Medications Administered Current Inpatient Medications Carbidopa/Levodopa (Carbidopa/Levodopa 25/100mg Tab) 2 tab PO TIDM LACEY Stop: 06/17/22 07:59 Last Admin: 05/20/22 17:32 Dose: 2 tab Carbidopa/Levodopa (Carbidopa/Levodopa 25/100mg Ext Rel Tab) 1 tab PO HS LACEY Stop: 06/17/22 20:59 Last Admin: 05/20/22 21:30 Dose: 1 tab Heparin Sodium/Dextrose (Heparin Sodium/Dextrose) 25,000 units in 500 mls @ 13 mls/hr IV .Q24H LACEY; Protocol Stop: 06/17/22 01:44 Last Titration: 05/20/22 08:16 Dose: 650 units/hr, 13 mls/hr Promethazine HCl 6.25 mg/ (Sodium Chloride) 50.25 mls @ 201 mls/hr IV Q6H PRN PRN Reason: Nausea And Vomiting Stop: 06/17/22 05:08 Pantoprazole Sodium 40 mg/ (Syringe) 10 mls @ 5 mls/min IV DAILY LACEY Stop: 06/18/22 08:59 Last Admin: 05/20/22 07:57 Dose: 5 mls/min Lactated Ringer's (Lr) 1,000 mls @ 40 mls/hr IV .Q24H [facility] Stop: 06/18/22 20:44 Last Admin: 05/20/22 21:31 Dose: 40 mls/hr Ampicillin Sodium/Sulbactam Sodium 3,000 mg/ Sodium Chloride 108 mls @ 200 mls/hr IV Q6H [facility]; Protocol Stop: 05/27/22 18:59 Last Infusion: 05/21/22 02:51 Dose: Infused Latanoprost (Latanoprost 0.005% Op Soln 2.5 Ml Btl) 1 drops OPB HS LACEY Stop: 06/17/22 20:59 Last Admin: 05/20/22 21:31 Dose: 1 drops
[2022-05-21 07:40] LABS: Calcium 8.6 mg/dl (8.5-10.1); Creatinine Clr Calc Pharmacy 54.9 ml/min; Est GFR (African American) 88.4 ml/min; Est GFR (Non-African American) 76.3 ml/min; Magnesium 1.8 mg/dl (1.7-2.4); Phosphorus 2.7 mg/dl (2.5-4.9); Potassium 3.3 mmol/L (3.5-5.1)
[2022-05-21 07:44] LABS: Partial Thromboplastin Time 55.8 Seconds (21.0-31.0)
[2022-05-21] MEDS: CARBIDOPA/LEVODOPA 25/100MG TAB PO SCH ×3 (09:09→16:28)
[2022-05-21] MEDS: PANTOprazole 40 MG in SYRINGE 0 ML IV SCH (09:09)
--- NOTE | 2022-05-21 10:07 | XRay Report ---
XR KUB/Abdomen 1 view CLINICAL HISTORY: follow up sbo TECHNIQUE: 1 view of the abdomen was obtained. Comparison: Comparison is made to abdomen radiograph 05/20/2022 FINDINGS: An enteric tube is partially visualized. Degenerative changes are seen in the visualized skeleton. Mu ltiple gas-distended loops of small bowel measuring up to 41 mm in diameter. Small stool burden is se en. IMPRESSION: Gas-distended loops of small bowel measure up to 41 mm in diameter. These are stable to minimally dec reased from prior exam compatible with continuing small bowel obstruction. ACT 112: Negative or not required by law. Electronically signed by: Robert Starr M.D. 05/21/2022 10:06 AM
[2022-05-21] MEDS: POTASSIUM CHLORIDE / WTR 10 MEQ/100 ML PLCT IV SCH ×3 (10:13→12:10)
--- NOTE | 2022-05-21 11:15 | Neurology Progress Note ---
Date of Service May 21, 2022 Assessment & Plan (1) Parkinson disease: (2) Lethargy: Plan The patient has a significant Parkinson's disease picture (has been off medication for 3 days now), with significant cogwheel rigidity, bradykinesia but no resting tremor. This is stable and not worse today compared to yesterday. He has not been able to get any medication because he is NPO because of a severe small bowel obstruction and he is getting suctioning through an NG tube. A pparently he will get medication than clamp it for, the suction. Nursing reports that the liquid the suctioned looks the color of the medication The patient has pulmonary emboli from DVT in the right lower extremity and is on heparin. He is lethargic but arousable and follows commands. His medical conditions can be responsible for this. There are no other obvious etiologies for encephalopat hy and sleepiness. Recommendations: 1. when able, an MRI of the brain would be reasonable to obtain. 2. Unfortunately we cannot give any Parkinson's medication IV or IM. He has to be able to take it via an NG tube or p.o.. Once he is able to take p.o. via an NG tube, we would restart him on his usual doses. 3. Physical therapy to keep his limbs from locking up as much as possible. Overall, I spent a total of 35 minutes with this case including review of records, direct evaluation the patient at bedside, and discussion of the case with the patient and RN at bedside, the patient's at bedside, and Dr. Howard, including differential diagnosis and treatment options. Admission and Anticipated Discharge Date Admission Date: May 18, 2022 Subjective Patient feels stable without significant pain. Nursing reports no new issues neurologically. Temperature is 37.7 and his blood pressure is 133/95. Results & Data ([facility]) Vital Signs (Past 12 Hours) Vital Signs Temp Pulse Pulse Resp BP Pulse Ox O2 Del Method 05/21/22 07:53 37.7 C H 86 20 133/95 97 Oxymask 05/21/22 07:00 82 05/21/22 03:21 37.3 C 72 18 141/70 H 96 Oxymask 05/21/22 00:25 76 O2 Flow Rate 05/21/22 07:53 4 05/21/22 07:00 05/21/22 03:21 05/21/22 00:25 Exam (Neuro) Physical Exam: He is awake and alert. Speech is without obvious aphasia or dysarthria. Mood is normal and affect is appropriate. He follows one-step commands very well. Extraocular eye muscles are intact without nystagmus. He has no facial droop. He has a masklike face and some bradykinesia in general. He has [id number] cogwheel rigidity in the arms. Strength is symmetrical in the limbs. PG Care Time/CCT Total # of Minutes Spent Total Time Spent with Patient: Total time spent is greater than 50% in coordination of care (as documented) at patient's floor/unit and/or counseling patient: Coding Level of Care Code 25504 Subseq Hosp Care Lvl 3 Diagnoses Parkinson disease G20 Lethargy R53.83 Time Spent (min) 35
[2022-05-21] MEDS: HEPARIN SODIUM/DEXTROSE 25,000 UNITS/500 ML BAG IV SCH (11:32)
--- NOTE | 2022-05-21 12:30 | XRay Report ---
SINGLE VIEW CHEST CLINICAL HISTORY: Hypoxia. FINDINGS: An AP, portable, upright chest radiograph is compared to study dated 05/20/2022 and correlat ed with chest CT dated 05/18/2022. An enteric tube is unchanged in position. The cardiomediastinal jovita houette is unremarkable noting atherosclerotic calcification of the thoracic aorta. There is increasi ng airspace consolidation at the left lung base and a small left pleural effusion. Scarring/atelectas is is seen at the right lung base. No pneumothorax is seen. The skeletal structures are osteopenic. T he bony thorax is grossly intact. IMPRESSION: There is increasing airspace consolidation at the left lung base and a small left pleural effusion. The appearance is typical for pneumonia/aspiration pneumonitis. Clinical correlation will be required and radiographic follow-up to resolution is recommended. ACT 112: Negative or not required by law. Electronically signed by: Cecil Wilkinson M.D. 05/21/2022 12:29 PM
--- NOTE | 2022-05-21 13:03 | Surgery Progress Note ---
Date of Service May 21, 2022 Assessment & Plan (1) SBO (small bowel obstruction): Plan: F/U SBO, stable, KUB better today, NG 400ml, plan, D/W may do small bowel follow through study, but high risk for aspiration, pt's want to do comfort care, no more study or surgery, continue conservative treatment, will F/U (2) Parkinson disease: (3) Pulmonary embolism: Plan 82-year-old male with history of Parkinson's, chronic kidney disease stage III, prediabetes, hyperlipidemia presented to the emergency room with achy abdominal pain as well as increased weakness. CT scan of the abdomen and pelvis showing high-grade small bowel obstruction with 2 transition points as well as multiple pulmonary emboli. 05/20/2022: His is obtunded today, responsive but significantly declined compared to yesterday His abdomen is soft without any distention, NGT output with about 400 cc output KUB showing persistent SBO but there is air in the colon CT of head without acute abnormality Plan: Given his current mental status, comorbidities, and multiple pulmonary emboli would not recommend surgical intervention at this time. Dr. Fitch with ICU has seen patient and was able to awake patient. Obtained CT of head and ABG. Recommending palliative consultation. Was planning on order SBFT study today to evaluate SBO however do not believe patient can tolerate the study at this time. Continue NGT to LIS Continue current medical management Agree with palliative consultation Dr. Munroe has seen and examined patient and agrees with above. Admission and Anticipated Discharge Date Admission Date: May 18, 2022 Subjective Patient feels stable without significant pain. Nursing reports no new issues neurologically. Temperature is 37.7 and his blood pressure is 133/95. 05/21/2022 1:02PM Dr. Munroe F/U SBO, more awake, no abdominal pain, pt's at bedside, Physical Exam Constitutional: WD/WN, vitals as above Neck: trachea midline, no thyromegaly Respiratory: normal respiratory effort, lungs clear to auscultation Cardiovascular: RRR, no murmur, no edema Gastrointestinal (Abdomen): soft, no distend, NT, BS +, Musculoskeletal: no cyanosis or clubbing, extremities motor strength 5/5 Neurologic: awake Results & Data ([facility]) Vital Signs (Past 12 Hours) Vital Signs Temp Pulse Pulse Resp BP Pulse Ox O2 Del Method 05/21/22 11:45 37.1 C 92 H 15 150/75 H 97 Oxymask 05/21/22 07:53 37.7 C H 86 20 133/95 97 Oxymask 05/21/22 07:00 82 05/21/22 03:21 37.3 C 72 18 141/70 H 96 Oxymask O2 Flow Rate 05/21/22 11:45 4 05/21/22 07:53 4 05/21/22 07:00 05/21/22 03:21 Laboratory Results Abnormal lab results 05/21/22 05/21/22 05/21/22 Range/Units 06:40 06:40 06:40 RBC 4.33 L (4.63-6.08) M/uL Hgb 13.2 L (14.0-18.0) g/dl Hct 39.7 L (40.1-51.0) % APTT 55.8 H* (21.0-31.0) Seconds Potassium 3.3 L (3.5-5.1) mmol/L Carbon Dioxide 33 H (21-32) mmol/L Glucose 110 H (70-99(Fasting)) mg/dl Diagnostic Findings SINGLE VIEW CHEST CLINICAL HISTORY: Hypoxia. FINDINGS: An AP, portable, upright chest radiograph is compared to study dated 05/20/2022 and correlated with chest CT dated 05/18/2022. An enteric tube is unchanged in position. The cardiomediastinal silhouette is unremarkable noting atherosclerotic calcification of the thoracic aorta. There is increasing airspace consolidation at the left lung base and a small left pleural effusion. Scarring/atelectasis is seen at the right lung base. No pneumothorax is seen. The skeletal structures are osteopenic. The bony thorax is grossly intact. IMPRESSION: There is increasing airspace consolidation at the left lung base and a small left pleural effusion. The appearance is typical for pn eumonia/aspiration pneumonitis. Clinical correlation will be required and radiographic follow-up to resolution is recommended. XR KUB/Abdomen 1 view CLINICAL HISTORY: follow up sbo TECHNIQUE: 1 view of the abdomen was obtained. Comparison: Comparison is made to abdomen radiograph 05/20/2022 FINDINGS: An enteric tube is partially visualized. Degenerative changes are seen in the visualized skeleton. Multiple gas-distended loops of small bowel measuring up to 41 mm in diameter. Small stool burden is seen. IMPRESSION: Gas-distended loops of small bowel measure up to 41 mm in diameter. These are stable to minimally decreased from prior exam compatible with continuing small bowel obstruction. ACT 112: Negative or not required by law.
--- NOTE | 2022-05-21 13:36 | Palliative Care Progress Note ---
Date of Service May 21, 2022 Assessment & Plan (1) Palliative care encounter: Plan: Met with pt Davida at bedside and then in family conference room at her request. She had several questions about his current issues/what are the top concerns and asked how she could explain these to patient's brother. She did notify patient's son who replied he would not be able to visit until next weekend due to work. She shares that she and pt have a blended family, they each had 2 children from their prior marriages. Together, they raised 4 teenagers under one roof. She has 2 daughters, who live in [facility]. Patient has 2 sons who both reside in [place]. I provided her with some sample language/talking maps to use. Davida shares that Carlos Eduardo was never someone who was chronically sick. They were both outdoor loving, active people. 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 [place] would drive out west every summer from October through February, and lives in a custom built log home on [address] near [place]. When pt was dx with Parkinson's, they then sold their home and moved to the [facility], because they wanted the security of knowing he would always have the right level of care as his disease progressed. She notes they completed their living nelson very precisely: Carlos Eduardo had very strong feelings about what constituted a meaningful quality life for him and he did not want anything aggressive to prolong suffering. (2) Advanced care planning/counseling discussion: Plan: 20 min discussion about disposition. She would like him dc to SNF at the [facility] - I have notified Dr Howard/primary team. Care mgt was notified by nursing, currently on the unit and will stop in later to see . She is hopeful he will make some recovery. I told her I am a little encouraged that he was able to be awake/interactive with providers this morning. Should he have another episode of increased alertness, I encouraged her to use that opportunity to explore patient's wishes for himself at this junction. I provided her with a talking map to use to help navigate this discussion and encouraged her to keep language simple/short sentences to facilitate patient's comprehension and ability to follow the discussion which may be impaired by the current acuity of his illness. (3) Pulmonary embolism: Plan: Pt remains on IV Heparin (4) SBO (small bowel obstruction): Plan: NGT continues to help with decompression. Further assessment with a small bowel follow through would come with higher than average risk for aspiration and subsequent complications. declined this with surgery and expressed wish for continued conservative treatment, maintaining focus on comfort as much as possible. (5) CKD (chronic kidney disease) stage 3, GFR 30-59 ml/min: (6) Parkinson disease: Plan: followed by neuro. Currently concerns are he is unable to take his PD meds due to not taking PO/+SBO wth NGT for decompression. (7) Failure to thrive: Plan: Ongoing, worsening over past 6-9mos Plan Davida will update family. She remains hopeful pt will have some further improvement in mentation. She will try to explore his wishes with him should the opportunity present. She would like to make sure his dispo plan is to the SNF at [facility]. Care mgt will see them today facilitate. I encouraged Davida to given current therapies a few days, overall watching for the trend - if he is steadily improving, then stay the current course. If he is worsening in spite of therapy, then she wants to move to comfort. If he is consistently inconsistent, then we will reconvene to discuss goals at that junction and next steps. Overriding through all of this is Davida';s desire to assure Carlos Eduardo does not suffer. Ilene Sutherland DNP Clinical Director, Palliative Medicine Admission and Anticipated Discharge Date Admission Date: May 18, 2022 Subjective Admitted 05/18/22 from home with progressive weakness, mild abd pain, declining PO intake and weight loss. 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 he was growing weaker and more lethargic at home, he has since been found to have extensive right main, lobar, segmental, and subsegmental pulmonary emboli + occlusive thrombus seen within the right superficial femoral, popliteal, and peroneal veins. Additionally noted to have bowel obstruction - he is not a candidate for surgery/very high risk. at bedside. She notes that he will need care at the wing of the [facility] (please note this is a correction from my note yesterday which recorded their residence as [facility], but it is [facility]) and she reached out to a social media specialist there. She is hoping to speak with CM here for more information. This morning pt was reported by nursing to be more awake and interactive. He answered some questions for Dr Howard. He then had his morning care, trial of PO meds with applesauce and repositioning, since then has been tired/sleeping. At time of my visit this morning at 1030am, he is asleep, intermittent bronchitic cough and not awake. Review of Systems Review of Systems: Unobtainable due to cognitive status Physical Exam Physical Exam: Elderly, thin/fraill male resting in bed, lethargic, diaphoretic. Bitemp wasting noted. +face mask for O2 Pupils reactive, unable to assess EOMIs. +NGT currently clamped +intermittent bronchitic cough. +generalized weakness +abdomen distended, bowel sound hypoactive. mild grimacing with palpation noted. Unable to assess strength. +lethargic, unable to follow commands, sleeping with intermittent snoring. Results & Data ([facility]) Vital Signs (Past 12 Hours) Vital Signs Temp Pulse Pulse Resp BP Pulse Ox O2 Del Method 05/21/22 11:45 37.1 C 92 H 15 150/75 H 97 Oxymask 05/21/22 07:53 37.7 C H 86 20 133/95 97 Oxymask 05/21/22 07:00 82 05/21/22 03:21 37.3 C 72 18 141/70 H 96 Oxymask O2 Flow Rate 05/21/22 11:45 4 05/21/22 07:53 4 05/21/22 07:00 05/21/22 03:21 Laboratory Results labs and imaging reviewed PG Care Time/CCT Total # of Minutes Spent Total Time Spent: 85 Total Time Spent with Patient: Total time spent is greater than 50% in coordination of care (as documented) at patient's floor/unit and/or counseling patient: I spent 85 minutes overall addressing this case: 5 in medical data review/discussion with referring provider(s) and/or preparation for the visit 30 in direct interaction with the patient and , over 2 separate meetings as outlined above 20 Advance Care Planning/Goals of Care discussions as detailed above in note (must be >16min) 15 in subsequent review and synthesis of assessment and plan 15 in communicating with other providers regarding the patient's case: nursing and primary team Prolonged Care Time Prolonged Care Time: Yes Advanced Care Planning 20181 Advanced Care Planning 30 [place] [address] Subseq Hosp Care Lvl 3 Patient Type Established History Comprehensive Exam Detailed Medical Decision Making High Complexity Diagnoses Palliative care encounter Z51.5 Advanced care planning/counseling discussion Z71.89 Pulmonary embolism I26.99 SBO (small bowel obstruction) K56.609 CKD (chronic kidney disease) stage 3, GFR 30-59 ml/min N18.3 Parkinson disease G20 Failure to thrive Additional Codes Prolonged Care Time - Prolonged Care Time: Yes ([id number]) Advanced Care Planning - 42814 Advanced Care Planning 30 Min: 82984 Advanced Care Planning 30 Min ([id number])
[2022-05-21] MEDS ORDERED: FUROSEMIDE INJ 20 MG/2 ML VIAL IV ONE (13:56)
[2022-05-21] MEDS: LATANOPROST 0.005% OP SOLN 2.5 ML BTL OPB SCH (21:24)
[2022-05-21] MEDS: CARBIDOPA/LEVODOPA 25/100MG EXT REL TAB PO SCH (21:24)
[2022-05-21] MEDS: LACTATED RINGER'S 1,000 ML IV SCH (22:43)
[2022-05-22] MEDS: AMPICILLIN/SULBACTAM SOD 3,000 MG in 0.9 % SODIUM CHLORIDE 100 ML IV SCH ×4 (01:46→20:37)
[2022-05-22 06:13] LABS: Hematocrit (blood only) 36.1 % (40.1-51.0); Hemoglobin 12.2 g/dl (14.0-18.0); Mean Corpuscular Hemoglobin 30.8 pg (25.0-34.0); Mean Corpuscular Hgb Conc 33.8 g/dL (32.0-36.0); Mean Corpuscular Volume 91.2 fL (80.0-100.0); Mean Platelet Volume 10.2 fL (9.4-12.4); Platelet Count 243 K/uL (130-400); RDW Coefficient of Variation 12.3 % (11.5-14.5); RDW Standard Deviation 41.1 fL (36.4-46.3); Red Blood Count 3.96 M/uL (4.63-6.08); White Blood Count 11.85 K/ul (4.8-10.8)
[2022-05-22 06:27] LABS: Partial Thromboplastin Ratio 1.5; Partial Thromboplastin Time 41.3 Seconds (21.0-31.0)
[2022-05-22 06:45] LABS: BUN Creatinine Ratio 20.2 (10-20); Calcium 8.3 mg/dl (8.5-10.1); Creatinine Clr Calc Pharmacy 60.7 ml/min; Est GFR (African American) 95.8 ml/min; Est GFR (Non-African American) 82.7 ml/min; Magnesium 1.9 mg/dl (1.7-2.4); Phosphorus 2.4 mg/dl (2.5-4.9); Potassium 3.3 mmol/L (3.5-5.1)
--- NOTE | 2022-05-22 07:55 | Hospitalist Progress Note ---
Date of Service May 22, 2022 Assessment & Plan (1) Pulmonary embolism: Plan: Acute Pulmonary Embolism Right lower extremity DVT Possible PE due to right femoral DVT --CTA showed Extensive right main, lobar, segmental, and subsegmental pulmonary emboli --Venous Doppler:The right common femoral vein is patent. There is occlusive thrombus seen within the right superficial femoral, popliteal, and peroneal veins. The left deep venous structures appear patent. --ECHO: Normal LV chamber size with mild concentric LVH. Normal LV systolic function, EF 60 to 65%. No segmental left ventricle wall motion abnormality noted. Grade 1 diastolic dysfunction. Right ventricle cavity size is normal. Right ventricle systolic function is borderline reduced. Mild mitral regurgitation. Borderline pulmonary hypertension with a PA systolic pressure of 41 mmHg assuming a right atrial pressure of 3 mmHg. -- Continue IV heparin -currently on oxymask - discussed w/ pulm./ ice cream freezer helper - cont. IV heparin Continue current management Aspiration pna - pt febrile, CXR repeated - concerning for aspiration - unasyn started, will cont for now - per speech eval - pt likely aspirates on secretions Small bowel obstruction --CT ABD:Findings consistent with a high-grade small bowel obstruction, as described above. Multiple transition points within the right lower quadrant. Moderate wall thickening of several ileal loops with associated mesenteric stranding and interloop fluid/ascites. A closed loop small bowel obstruction with bowel ischemia cannot be excluded. No pneumatosis, portal venous gas or free air. -Appreciate surgery input Conservative management for now Continue bowel rest, IV fluids Pain control continue NG tube Repeat KUB yesterday c/w small bowel obstruction Discussed w/ surgery - thought about small bowel follow through study - but don't think pt can tolerate - per surgery discussed w/ Continue management as per surgery 05/22 NG tube removed today Failure to thrive - pt barely responsive 2 days ago not answering questions, hardly following any commands - seen by ice cream freezer helper, surgery, neurology also consulted, appreciate their input - per ice cream freezer helper - palliative med. recommended, and they were consulted, appreciate their input - today mental status improved H/O CVA --CT Head:No acute intracranial findings. Monitor GERD: on PPI Prediabetes HbA1C:5.9 in Feb 2022 Troponin elevation Likely type II PA secondary to PE DVT Px: IV heparin Code Status - DNR/DNI -discussed CODE STATUS in detail with patient's , who also brought in the paperwork which was copied into the chart. Disposition - uncertain PT/OT prior to discharge Admission and Anticipated Discharge Date Admission Date: May 18, 2022 Subjective Patient is seen in follow up of PE, SBO, Parkinson's dis. Today his eyes are open and he is able to answer simple questions appropriately. Pt's present at the bedside and updated This morning, surgical service okay to remove NG tube. Speech eval. Denies chest pain, or increased shortness of breath He is coughing He is on oxymask Will repeat KUB, CXR Review of Systems Review of Systems: All systems reviewed & are unremarkable except as noted in Subjective Physical Exam Physical Exam: General Appearance:Thin, frail, chronically appearing, no apparent distress, on oxymask Head: normocephalic, Atraumatic Eyes: normal inspection, EOMI Neck: supple Respiratory/Chest: Normal breath sounds, CTA, No accessory muscle use Cardiovascular: S1, S2, No murmur Abdomen/GI:Soft, Non tender, +Bowel sounds Extremities/Musculoskeletal:normal inspection, mild edema Neurologic/Psych: pt opening eyes, and answering simple questions appropriately Skin: normal color, warm Results & Data Results & Data ([facility]) Vital Signs (Past 12 Hours) Vital Signs Temp Pulse Pulse Resp BP Pulse Ox O2 Del Method 05/22/22 02:49 37.1 C 83 16 149/89 H 99 Oxymask 05/22/22 02:16 81 05/21/22 22:56 37.2 C 87 17 146/61 H 97 Oxymask O2 Flow Rate FiO2 05/22/22 02:49 4 05/22/22 02:16 05/21/22 22:56 4 Laboratory Results 05/22/22 05/22/22 05/22/22 Range/Units 05:23 05:23 05:23 WBC 11.85 H (4.8-10.8) K/ul RBC 3.96 L (4.63-6.08) M/uL Hgb 12.2 L (14.0-18.0) g/dl Hct 36.1 L (40.1-51.0) % MCV 91.2 (80.0-100.0) fL MCH 30.8 (25.0-34.0) pg MCHC 33.8 (32.0-36.0) g/dL RDW Std Deviation 41.1 (36.4-46.3) fL RDW Coeff of Jm 12.3 (11.5-14.5) % Plt Count 243 (130-400) K/uL MPV 10.2 (9.4-12.4) fL APTT 41.3 H (21.0-31.0) Seconds PTT Ratio 1.5 Sodium 139 (136-145) mmol/L Potassium 3.3 L (3.5-5.1) mmol/L Chloride 100 (98-107) mmol/L Carbon Dioxide 34 H (21-32) mmol/L Anion Gap 5 (3-11) BUN 17 (6-23) mg/dl Creatinine 0.84 (0.6-1.4) mg/dl Est Cr Clr Drug Dosing 60.7 ml/min Est GFR ( Amer) 95.8 ml/min Est GFR (Non-Af Amer) 82.7 ml/min BUN/Creatinine Ratio 20.2 H (10-20) Glucose 96 (70-99(Fasting)) mg/dl Calcium 8.3 L (8.5-10.1) mg/dl Phosphorus 2.4 L (2.5-4.9) mg/dl Magnesium 1.9 (1.7-2.4) mg/dl Medications Administered Current Inpatient Medications Carbidopa/Levodopa (Carbidopa/Levodopa 25/100mg Tab) 2 tab PO TIDM LACEY Stop: 06/17/22 07:59 Last Admin: 05/21/22 16:28 Dose: 2 tab Carbidopa/Levodopa (Carbidopa/Levodopa 25/100mg Ext Rel Tab) 1 tab PO HS LACEY Stop: 06/17/22 20:59 Last Admin: 05/21/22 21:24 Dose: 1 tab Heparin Sodium/Dextrose (Heparin Sodium/Dextrose) 25,000 units in 500 mls @ 13 mls/hr IV .Q24H LACEY; Protocol Stop: 06/17/22 01:44 Last Titration: 05/22/22 06:29 Dose: 700 units/hr, 14 mls/hr Promethazine HCl 6.25 mg/ (Sodium Chloride) 50.25 mls @ 201 mls/hr IV Q6H PRN PRN Reason: Nausea And Vomiting Stop: 06/17/22 05:08 Pantoprazole Sodium 40 mg/ (Syringe) 10 mls @ 5 mls/min IV DAILY LACEY Stop: 06/18/22 08:59 Last Admin: 05/21/22 09:09 Dose: 5 mls/min Lactated Ringer's (Lr) 1,000 mls @ 40 mls/hr IV .Q24H LACEY Stop: 06/18/22 20:44 Last Admin: 05/21/22 22:43 Dose: 40 mls/hr Ampicillin Sodium/Sulbactam Sodium 3,000 mg/ Sodium Chloride 108 mls @ 200 mls/hr IV Q6H LACEY; Protocol Stop: 05/27/22 18:59 Last Admin: 05/22/22 06:20 Dose: 200 mls/hr Potassium Chloride (K Alberto / Wtr) 10 meq in 100 mls @ 100 mls/hr IV Q1H LACEY Stop: 05/22/22 10:59 Latanoprost (Latanoprost 0.005% Op Soln 2.5 Ml Btl) 1 drops OPB HS LACEY Stop: 06/17/22 20:59 Last Admin: 05/21/22 21:24 Dose: 1 drops
[2022-05-22] MEDS: CARBIDOPA/LEVODOPA 25/100MG TAB PO SCH ×3 (08:42→16:38)
[2022-05-22] MEDS: PANTOprazole 40 MG in SYRINGE 0 ML IV SCH (08:42)
[2022-05-22] MEDS: POTASSIUM CHLORIDE / WTR 10 MEQ/100 ML PLCT IV SCH ×3 (08:45→12:14)
--- NOTE | 2022-05-22 09:13 | Surgery Progress Note ---
Date of Service May 22, 2022 Assessment & Plan (1) SBO (small bowel obstruction): (2) Parkinson disease: (3) Pulmonary embolism: Plan 82-year-old male with history of Parkinson's, chronic kidney disease stage III, prediabetes, hyperlipidemia presented to the emergency room with achy abdominal pain as well as increased weakness. CT scan of the abdomen and pelvis showing high-grade small bowel obstruction with 2 transition points as well as multiple pulmonary emboli. 05/21/2022: - more alert today, in no distress - abdomen soft - NGT minimal output last shift - unsure if passing flatus Plan: Okay to discontinue NGT speech eval prior to advancing diet to clears can resume home meds for his parkinsons once speech eval completed continue medical management [facility] surgery covering weekend Dr. Munroe has seen and examined patient and agrees with above. Admission and Anticipated Discharge Date Admission Date: May 18, 2022 Subjective patient more alert today , opens eyes when entering room limited ROS but state he is not having any abdominal pain, when asked states he has not been passing gas NGT with some bloody/bilious/brown output in canister Physical Exam Constitutional: + frail appearing and + lethargic; no acute distress and not in distress Respiratory: no respiratory distress and no labored breathing Gastrointestinal (Abdomen): Inspection/Auscultation: abdomen normal to inspection; abdomen not distended Percussion/Palpation: abdomen soft; abdomen nontender, no guarding and abdomen not rigid NGT with brown/bilious/bloody drainage in tubing and canister Skin: no rashes, warm and dry Psychiatric: Orientation: alert; + not oriented x 3 Results & Data ([facility]) Vital Signs (Past 12 Hours) Vital Signs Temp Pulse Pulse Resp BP Pulse Ox O2 Del Method 05/22/22 08:00 36.8 C 78 20 133/88 100 Room Air 05/22/22 02:49 37.1 C 83 16 149/89 H 99 Oxymask 05/22/22 02:16 81 05/21/22 22:56 37.2 C 87 17 146/61 H 97 Oxymask O2 Flow Rate FiO2 05/22/22 08:00 05/22/22 02:49 4 05/22/22 02:16 05/21/22 22:56 4 Laboratory Results 12/03/0505/22/22 05/22/22 Range/Units 05:23 05:23 05:23 WBC 11.85 H (4.8-10.8) K/ul RBC 3.96 L (4.63-6.08) M/uL Hgb 12.2 L (14.0-18.0) g/dl Hct 36.1 L (40.1-51.0) % MCV 91.2 (80.0-100.0) fL MCH 30.8 (25.0-34.0) pg MCHC 33.8 (32.0-36.0) g/dL RDW Std Deviation 41.1 (36.4-46.3) fL RDW Coeff of Jm 12.3 (11.5-14.5) % Plt Count 243 (130-400) K/uL MPV 10.2 (9.4-12.4) fL APTT 41.3 H (21.0-31.0) Seconds PTT Ratio 1.5 Sodium 139 (136-145) mmol/L Potassium 3.3 L (3.5-5.1) mmol/L Chloride 100 (98-107) mmol/L Carbon Dioxide 34 H (21-32) mmol/L Anion Gap 5 (3-11) BUN 17 (6-23) mg/dl Creatinine 0.84 (0.6-1.4) mg/dl Est Cr Clr Drug Dosing 60.7 ml/min Est GFR ( Amer) 95.8 ml/min Est GFR (Non-Af Amer) 82.7 ml/min BUN/Creatinine Ratio 20.2 H (10-20) Glucose 96 (70-99(Fasting)) mg/dl Calcium 8.3 L (8.5-10.1) mg/dl Phosphorus 2.4 L (2.5-4.9) mg/dl Magnesium 1.9 (1.7-2.4) mg/dl
[2022-05-22 19:14] LABS: Partial Thromboplastin Ratio 1.6; Partial Thromboplastin Time 42.9 Seconds (21.0-31.0)
[2022-05-22] MEDS: HEPARIN SODIUM/DEXTROSE 25,000 UNITS/500 ML BAG IV SCH (19:19)
[2022-05-22] MEDS: CARBIDOPA/LEVODOPA 25/100MG EXT REL TAB PO SCH (20:39)
[2022-05-22] MEDS: LATANOPROST 0.005% OP SOLN 2.5 ML BTL OPB SCH (20:39)
[2022-05-23 01:50] LABS: Hematocrit (blood only) 34.6 % (40.1-51.0); Hemoglobin 11.6 g/dl (14.0-18.0); Mean Corpuscular Hemoglobin 30.9 pg (25.0-34.0); Mean Corpuscular Hgb Conc 33.5 g/dL (32.0-36.0); Mean Corpuscular Volume 92.3 fL (80.0-100.0); Mean Platelet Volume 9.5 fL (9.4-12.4); Platelet Count 256 K/uL (130-400); RDW Coefficient of Variation 12.2 % (11.5-14.5); RDW Standard Deviation 41.4 fL (36.4-46.3); Red Blood Count 3.75 M/uL (4.63-6.08); White Blood Count 9.58 K/ul (4.8-10.8)
[2022-05-23] MEDS: AMPICILLIN/SULBACTAM SOD 3,000 MG in 0.9 % SODIUM CHLORIDE 100 ML IV SCH ×4 (01:55→18:14)
[2022-05-23 02:01] LABS: Partial Thromboplastin Ratio 1.6
[2022-05-23 02:15] LABS: Calcium 7.7 mg/dl (8.5-10.1); Creatinine Clr Calc Pharmacy 63.8 ml/min; Est GFR (African American) 97.8 ml/min; Est GFR (Non-African American) 84.4 ml/min; Magnesium 1.8 mg/dl (1.7-2.4); Phosphorus 2.2 mg/dl (2.5-4.9); Potassium 3.6 mmol/L (3.5-5.1)
--- NOTE | 2022-05-23 05:50 | Surgery Progress Note ---
Date of Service May 23, 2022 Assessment & Plan (1) SBO (small bowel obstruction): Plan: Patient has been admitted on the hospitalist service. We recommend proceeding as follows: Due to concern for aspiration with administration of clear liquids a speech evaluation has been requested; this is pending Would withhold on further diet advancement until speech has evaluated the patient If patient is unable to take enough clear liquids safely would consider adding IV fluids Continue further management as directed by the medical service -Patient is receiving a heparin drip so no further DVT prevention is needed Check a.m. labs when available Admission and Anticipated Discharge Date Admission Date: May 18, 2022 Supervising Physician Co-Signing Physician Notes Patient seen and examined, labs reviewed, agree with above. 82-year-old male found to have small bowel obstruction. He has been passing flatus and has had a small bowel movement overnight. He has no abdominal pain and his abdomen feels less bloated. On exam he is afebrile stable vitals. His abdomen is soft, nontender, nondistended. Labs reviewed. Peers the small bowel obstruction is resolving. May advance his diet as tolerated, however he has been noted to cough and possibly aspirate with liquids. Should consider swallow evaluation prior to advancement of diet. Subjective Patient is resting comfortably in bed. He notes that he has minimal abdominal pain. He denies nausea or vomiting. Voices no other complaints at this time. I discussed with the trip follower nurse. Patient's NG tube was removed yesterday and patient has not had any nausea or vomiting since that time. He did have a small bowel movement over the last shift. The patient is tolerating clears but there is concern the patient may be aspirating when clear liquids are taken orally. Physical Exam Gastrointestinal (Abdomen): Bowel sounds are hypoactive. Abdomen is nondistended and soft. There is no rebound tenderness or guarding. There is minimal to no pain with palpation. Results & Data ([facility]) Vital Signs (Past 12 Hours) Vital Signs Temp Pulse Pulse Resp BP Pulse Ox O2 Del Method 05/23/22 05:00 05/23/22 02:42 37.0 C 67 18 153/74 H 96 Oxymask 05/23/22 02:15 71 05/22/22 19:30 Oxymask 05/22/22 22:26 37.0 C 70 17 146/82 H 98 Oxymask 05/22/22 19:38 36.7 C 75 17 165/92 H 98 Oxymask O2 Del Method O2 Flow Rate O2 Flow Rate 05/23/22 05:00 Oxymask 2 05/23/22 02:42 4 05/23/22 02:15 05/22/22 19:30 2 05/22/22 22:26 4 05/22/22 19:38 4 PG Care Time/CCT Total # of Minutes Spent Total Time Spent with Patient: Total time spent is greater than 50% in coordination of care (as documented) at patient's floor/unit and/or counseling patient: Coding Level of Care Code 87753 Subseq Hosp Care Lvl 1 Diagnoses SBO (small bowel obstruction) K56.609
--- NOTE | 2022-05-23 07:27 | Hospitalist Progress Note ---
Date of Service May 23, 2022 Assessment & Plan (1) Pulmonary embolism: Plan: Acute Pulmonary Embolism Right lower extremity DVT Possible PE due to right femoral DVT --CTA showed Extensive right main, lobar, segmental, and subsegmental pulmonary emboli --Venous Doppler:The right common femoral vein is patent. There is occlusive thrombus seen within the right superficial femoral, popliteal, and peroneal veins. The left deep venous structures appear patent. --ECHO: Normal LV chamber size with mild concentric LVH. Normal LV systolic function, EF 60 to 65%. No segmental left ventricle wall motion abnormality noted. Grade 1 diastolic dysfunction. Right ventricle cavity size is normal. Right ventricle systolic function is borderline reduced. Mild mitral regurgitation. Borderline pulmonary hypertension with a PA systolic pressure of 41 mmHg assuming a right atrial pressure of 3 mmHg. -- Continue IV heparin - currently on suppl. O2 vs RA Continue current management Aspiration pna - pt febrile, CXR repeated - concerning for aspiration - Unasyn started, will cont for now - per speech eval - pt likely aspirates on secretions Small bowel obstruction --CT ABD:Findings consistent with a high-grade small bowel obstruction, as described above. Multiple transition points within the right lower quadrant. Moderate wall thickening of several ileal loops with associated mesenteric stranding and interloop fluid/ascites. A closed loop small bowel obstruction with bowel ischemia cannot be excluded. No pneumatosis, portal venous gas or free air. -Appreciate surgery input Conservative management for now Continue bowel rest, IV fluids Pain control continue NG tube Repeat KUB yesterday c/w small bowel obstruction Discussed w/ surgery - thought about small bowel follow through study - but don't think pt can tolerate - per surgery discussed w/ Continue management as per surgery 05/22 NG tube removed 05/23 - no abd. pain after NGT removed Failure to thrive - pt barely responsive few days ago not answering questions, hardly following any commands - seen by bottom pounder cement shoes, surgery, neurology also consulted, appreciate their input - per bottom pounder cement shoes - palliative med. recommended, and they were consulted, appr eciate their input - mental status much improved H/O CVA --CT Head:No acute intracranial findings. Monitor GERD: on PPI Prediabetes HbA1C:5.9 in Feb 2022 Troponin elevation Likely type II MT secondary to PE DVT Px: IV heparin Code Status - DNR/DNI -discussed CODE STATUS in detail with patient's , who also brought in the paperwork which was copied into the chart. Disposition - uncertain PT/OT prior to discharge Admission and Anticipated Discharge Date Admission Date: May 18, 2022 Subjective Patient is seen in follow up of PE, SBO, Parkinson's dis. Today his eyes are open and he is able to answer simple questions appropriately. NG tube removed yesterday. He has been coughing. Speech eval obtained. Currently patient is on clear liquid diet, concern that he is aspirating even with secretions. Speech therapy to follow. Pt denies any chest pain, or increased shortness of breath. Denies abd. pain. No n/v Review of Systems Review of Systems: All systems reviewed & are unremarkable except as noted in Subjective Physical Exam Physical Exam: General Appearance: Thin, frail, chronically appearing, no apparent distress Head: normocephalic, Atraumatic Eyes: normal inspection, EOMI Neck: supple Respiratory/Chest: Normal breath sounds, CTA, No accessory muscle use Cardiovascular: S1, S2, No murmur Abdomen/GI:Soft, Non tender, +Bowel sounds Extremities/Musculoskeletal:normal inspection, mild edema Neurologic/Psych: pt opening eyes, and answering simple questions appropriately Skin: normal color, warm Results & Data Results & Data ([facility]) Vital Signs (Past 12 Hours) Vital Signs Temp Pulse Pulse Resp BP Pulse Ox O2 Del Method 05/23/22 05:00 05/23/22 02:42 37.0 C 67 18 153/74 H 96 Oxymask 05/23/22 02:15 71 05/22/22 19:30 Oxymask 05/22/22 22:26 37.0 C 70 17 146/82 H 98 Oxymask 05/22/22 19:38 36.7 C 75 17 165/92 H 98 Oxymask O2 Del Method O2 Flow Rate O2 Flow Rate 05/23/22 05:00 Oxymask 2 05/23/22 02:42 4 05/23/22 02:15 05/22/22 19:30 2 05/22/22 22:26 4 05/22/22 19:38 4 Laboratory Results 05/23/22 05/23/22 05/23/22 Range/Units 01:45 01:44 01:44 WBC 9.58 (4.8-10.8) K/ul RBC 3.75 L (4.63-6.08) M/uL Hgb 11.6 L (14.0-18.0) g/dl Hct 34.6 L (40.1-51.0) % MCV 92.3 (80.0-100.0) fL MCH 30.9 (25.0-34.0) pg MCHC 33.5 (32.0-36.0) g/dL RDW Std Deviation 41.4 (36.4-46.3) fL RDW Coeff of Jm 12.2 (11.5-14.5) % Plt Count 256 (130-400) K/uL MPV 9.5 (9.4-12.4) fL APTT 43.0 H (21.0-31.0) Seconds PTT Ratio 1.6 Sodium 137 (136-145) mmol/L Potassium 3.6 (3.5-5.1) mmol/L Chloride 101 (98-107) mmol/L Carbon Dioxide 33 H (21-32) mmol/L Anion Gap 3 (3-11) BUN 16 (6-23) mg/dl Creatinine 0.80 (0.6-1.4) mg/dl Est Cr Clr Drug Dosing 63.8 ml/min Est GFR ( Amer) 97.8 ml/min Est GFR (Non-Af Amer) 84.4 ml/min BUN/Creatinine Ratio 20.0 (10-20) Glucose 102 H (70-99(Fasting)) mg/dl Calcium 7.7 L (8.5-10.1) mg/dl Phosphorus 2.2 L (2.5-4.9) mg/dl Magnesium 1.8 (1.7-2.4) mg/dl 05/22/22 Range/Units 18:45 WBC (4.8-10.8) K/ul RBC (4.63-6.08) M/uL Hgb (14.0-18.0) g/dl Hct (40.1-51.0) % MCV (80.0-100.0) fL MCH (25.0-34.0) pg MCHC (32.0-36.0) g/dL RDW Std Deviation (36.4-46.3) fL RDW Coeff of Jm (11.5-14.5) % Plt Count (130-400) K/uL MPV (9.4-12.4) fL APTT 42.9 H (21.0-31.0) Seconds PTT Ratio 1.6 Sodium (136-145) mmol/L Potassium (3.5-5.1) mmol/L Chloride (98-107) mmol/L Carbon Dioxide (21-32) mmol/L Anion Gap (3-11) BUN (6-23) mg/dl Creatinine (0.6-1.4) mg/dl Est Cr Clr Drug Dosing ml/min Est GFR ( Amer) ml/min Est GFR (Non-Af Amer) ml/min BUN/Creatinine Ratio (10-20) Glucose (70-99(Fasting)) mg/dl Calcium (8.5-10.1) mg/dl Phosphorus (2.5-4.9) mg/dl Magnesium (1.7-2.4) mg/dl Medications Administered Current Inpatient Medications Carbidopa/Levodopa (Carbidopa/Levodopa 25/100mg Tab) 2 tab PO TIDM [facility]ACE[facility] Stop: 06/17/22 07:59 Last Admin: 05/22/22 16:38 Dose: 2 tab Carbidopa/Levodopa (Carbidopa/Levodopa 25/100mg Ext Rel Tab) 1 tab PO HS [facility]ACE[facility] Stop: 06/17/22 20:59 Last Admin: 05/22/22 20:39 Dose: 1 tab Heparin Sodium/Dextrose (Heparin Sodium/Dextrose) 25,000 units in 500 mls @ 16 mls/hr IV .Q24H [facility]; Protocol Stop: 06/17/22 01:44 Last Titration: 05/23/22 02:05 Dose: 800 units/hr, 16 mls/hr Promethazine HCl 6.25 mg/ (Sodium Chloride) 50.25 mls @ 201 mls/hr IV Q6H PRN PRN Reason: Nausea And Vomiting Stop: 06/17/22 05:08 Pantoprazole Sodium 40 mg/ (Syringe) 10 mls @ 5 mls/min IV DAILY [facility] Stop: 06/18/22 08:59 Last Admin: 05/22/22 08:42 Dose: 5 mls/min Ampicillin Sodium/Sulbactam Sodium 3,000 mg/ Sodium Chloride 108 mls @ 200 mls/hr IV Q6H [facility]; Protocol Stop: 05/27/22 18:59 Last Admin: 05/23/22 06:40 Dose: 200 mls/hr Latanoprost (Latanoprost 0.005% Op Soln 2.5 Ml Btl) 1 drops OPB [facility] Stop: 06/17/22 20:59 Last Admin: 05/22/22 20:39 Dose: 1 drops
[2022-05-23 08:45] LABS: Partial Thromboplastin Ratio 1.8
[2022-05-23 09:01] LABS: Partial Thromboplastin Time 48.3 Seconds (21.0-31.0)
[2022-05-23] MEDS ORDERED: SODIUM CHLORIDE 0.9% 1000ML 1,000 ML IV ONE (09:13)
[2022-05-23] MEDS: PANTOprazole 40 MG in SYRINGE 0 ML IV SCH (10:04)
[2022-05-23] MEDS: CARBIDOPA/LEVODOPA 25/100MG TAB PO SCH ×3 (10:04→17:08)
[2022-05-23] MEDS: guaiFENesin 600 MG TABCR PO SCH ×2 (11:22→20:11)
[2022-05-23] MEDS ORDERED: POTASSIUM CHLORIDE / WTR 10 MEQ/100 ML PLCT IV ONE (11:29)
[2022-05-23] MEDS: CARBIDOPA/LEVODOPA 25/100MG EXT REL TAB PO SCH (20:11)
[2022-05-23] MEDS: LATANOPROST 0.005% OP SOLN 2.5 ML BTL OPB SCH (20:13)
[2022-05-24] MEDS: AMPICILLIN/SULBACTAM SOD 3,000 MG in 0.9 % SODIUM CHLORIDE 100 ML IV SCH ×4 (02:00→18:44)
[2022-05-24] MEDS: HEPARIN SODIUM/DEXTROSE 25,000 UNITS/500 ML BAG IV SCH (02:49)
--- NOTE | 2022-05-24 05:38 | Surgery Progress Note ---
Date of Service May 24, 2022 Assessment & Plan (1) SBO (small bowel obstruction): Plan: Patient has been admitted on the hospitalist service. We recommend proceeding as follows: Due to concern for aspiration with administration of clear liquids would recommend obtaining speech evaluation prior to advancing diet further Continue further management as directed by the medical service -Patient is receiving a heparin drip so no further DVT prevention is needed Check a.m. labs when available Admission and Anticipated Discharge Date Admission Date: May 18, 2022 Supervising Physician Co-Signing Physician Notes Patient discussed with Stephane BRANCH, not examined as patient was sleeping comfortably. Labs reviewed, agree with above. 82-year-old male found to have small bowel obstruction. He continues to pass flatus and feel better. Appears that his small bowel obstruction has resolved. May advance his diet as tolerated, however he has been noted to cough and possibly aspirate with liquids. Should consider swallow evaluation prior to advancement of diet. Subjective Patient is resting comfortably in bed. He denies any nausea or vomiting. He denies any abdominal pain. I discussed with the automatic log cut off sawyer RN and patient did have a small bowel movement 2 nights ago but none last evening. No nausea or vomiting has been noted. Physical Exam Gastrointestinal (Abdomen): Abdomen is soft and nondistended. It is nonrigid. Bowel sounds are present. There is minimal to no pain with palpation. There is no rebound tenderness or guarding. Results & Data ([facility]) Vital Signs (Past 12 Hours) Vital Signs Temp Pulse Pulse Resp BP Pulse Ox O2 Del Method 05/24/22 03:02 36.5 C 66 17 155/79 H 100 Oxymask 05/24/22 00:42 65 05/23/22 22:54 37.3 C 66 17 147/78 H 95 Oxymask 05/23/22 20:00 Oxymask 05/23/22 19:25 36.8 C 70 18 144/73 H 93 Oxymask O2 Flow Rate 05/24/22 03:02 2 05/24/22 00:42 05/23/22 22:54 2 05/23/22 20:00 2 05/23/22 19:25 2 PG Care Time/CCT Total # of Minutes Spent Total Time Spent with Patient: Total time spent is greater than 50% in coordination of care (as documented) at patient's floor/unit and/or counseling patient: Coding Level of Care Code 81537 Subseq Hosp Care Lvl 1 Diagnoses SBO (small bowel obstruction) K56.609
[2022-05-24 06:59] LABS: Hemoglobin 11.5 g/dl (14.0-18.0); Mean Corpuscular Hemoglobin 30.9 pg (25.0-34.0); Mean Corpuscular Hgb Conc 33.8 g/dL (32.0-36.0); Mean Corpuscular Volume 91.4 fL (80.0-100.0); Mean Platelet Volume 9.8 fL (9.4-12.4); Platelet Count 284 K/uL (130-400); RDW Coefficient of Variation 12.1 % (11.5-14.5); RDW Standard Deviation 40.7 fL (36.4-46.3); Red Blood Count 3.72 M/uL (4.63-6.08); White Blood Count 6.15 K/ul (4.8-10.8)
[2022-05-24 07:24] LABS: BUN Creatinine Ratio 16.7 (10-20); Calcium 7.6 mg/dl (8.5-10.1); Creatinine Clr Calc Pharmacy 81.2 ml/min; Est GFR (African American) 105.8 ml/min; Est GFR (Non-African American) 91.3 ml/min; Magnesium 1.7 mg/dl (1.7-2.4); Phosphorus 2.9 mg/dl (2.5-4.9); Potassium 3.5 mmol/L (3.5-5.1)
[2022-05-24 07:41] LABS: Partial Thromboplastin Ratio 1.9
[2022-05-24 07:48] LABS: Partial Thromboplastin Time 51.5 Seconds (21.0-31.0)
[2022-05-24] MEDS: PANTOprazole 40 MG in SYRINGE 0 ML IV SCH (08:06)
[2022-05-24] MEDS: CARBIDOPA/LEVODOPA 25/100MG TAB PO SCH ×3 (08:06→17:17)
[2022-05-24] MEDS: guaiFENesin 600 MG TABCR PO SCH ×2 (08:06→21:09)
[2022-05-24] MEDS: POTASSIUM CHLORIDE / WTR 10 MEQ/100 ML PLCT IV SCH ×2 (09:06→10:19)
[2022-05-24] MEDS ORDERED: MAGNESIUM SULFATE / D5W 1 GM/100 ML BAG IV ONE (13:18)
--- NOTE | 2022-05-24 13:22 | Hospitalist Progress Note ---
Date of Service May 24, 2022 Assessment & Plan (1) Pulmonary embolism: Plan: Acute Pulmonary Embolism Right lower extremity DVT Possible PE due to right femoral DVT --CTA showed Extensive right main, lobar, segmental, and subsegmental pulmonary emboli --Venous Doppler:The right common femoral vein is patent. There is occlusive thrombus seen within the right superficial femoral, popliteal, and peroneal veins. The left deep venous structures appear patent. --ECHO: Normal LV chamber size with mild concentric LVH. Normal LV systolic function, EF 60 to 65%. No segmental left ventricle wall motion abnormality noted. Grade 1 diastolic dysfunction. Right ventricle cavity size is normal. Right ventricle systolic function is borderline reduced. Mild mitral regurgitation. Borderline pulmonary hypertension with a PA systolic pressure of 41 mmHg assuming a right atrial pressure of 3 mmHg. -- Continue IV heparin - currently on suppl. O2 vs RA Continue current management Aspiration pna - pt febrile, CXR repeated - concerning for aspiration - Unasyn started, will cont for now - per speech eval - pt likely aspirates on secretions - Plan for video swallow study on Wednesday (tmr) Small bowel obstruction --CT ABD:Findings consistent with a high-grade small bowel obstruction, as described above. Multiple transition points within the right lower quadrant. Moderate wall thickening of several ileal loops with associated mesenteric stranding and interloop fluid/ascites. A closed loop small bowel obstruction with bowel ischemia cannot be excluded. No pneumatosis, portal venous gas or free air. -Appreciate surgery input Conservative management for now Continue bowel rest, IV fluids Pain control continue NG tube Repeat KUB yesterday c/w small bowel obstruction Discussed w/ surgery - thought about small bowel follow through study - but don't think pt can tolerate - per surgery discussed w/ Continue management as per surgery 05/22 NG tube removed 05/23 - no abd. pain after NGT removed Failure to thrive - pt barely responsive few days ago not answering questions, hardly following any commands - seen by machine bookkeeper, surgery, neurology also consulted, appreciate their input - per machine bookkeeper - palliative med. recommended, and they were consulted, appreciate their input - mental status improved H/O CVA --CT Head:No acute intracranial findings. Monitor GERD: on PPI Prediabetes HbA1C:5.9 in Feb 2022 Troponin elevation Likely type II MS secondary to PE DVT Px: IV heparin Code Status - DNR/DNI -discussed CODE STATUS in detail with patient's , who also brought in the paperwork which was copied into the chart. Disposition - uncertain PT/OT prior to discharge Admission and Anticipated Discharge Date Admission Date: May 18, 2022 Subjective Patient is seen in follow up of PE, SBO, Parkinson's dis. Patient is resting, sleeping however easily arousable. Able to answer simple questions appropriately. Pt denies any chest pain, or increased shortness of breath. Denies abd. pain. No n/v Speech eval obtained. Currently patient is on clear liquid diet, concern that he is aspirating even with secretions. Speech therapy to follow. Plan for video swallow study tomorrow. Family updated at the bedside yesterday. Review of Systems Review of Systems: All systems reviewed & are unremarkable except as noted in Subjective Physical Exam Physical Exam: General Appearance: Thin, frail, chronically appearing, no apparent distress Head: normocephalic, Atraumatic Eyes: normal inspection, EOMI Neck: supple Respiratory/Chest: Normal breath sounds, CTA, No accessory muscle use Cardiovascular: S1, S2, No murmur Abdomen/GI:Soft, Non tender, +Bowel sounds Extremities/Musculoskeletal:normal inspection, mild edema Neurologic/Psych: drowsy but opening eyes, and answering simple questions appropriately Skin: normal color, warm Results & Data Results & Data ([facility]) Vital Signs (Past 12 Hours) Vital Signs Temp Pulse Pulse Resp BP Pulse Ox O2 Del Method 05/24/22 11:00 36.7 C 79 18 149/77 H 96 Nasal Cannula 05/24/22 08:00 59 L 05/24/22 08:00 Room Air, Oxymask 05/24/22 08:00 36.8 C 74 18 158/77 H 99 Room Air 05/24/22 03:02 36.5 C 66 17 155/79 H 100 Oxymask O2 Flow Rate 05/24/22 11:00 05/24/22 08:00 05/24/22 08:00 2 05/24/22 08:00 05/24/22 03:02 2 Laboratory Results 05/24/22 05/24/22 05/24/22 Range/Units 06:33 06:33 06:33 WBC 6.15 (4.8-10.8) K/ul RBC 3.72 L (4.63-6.08) M/uL Hgb 11.5 L (14.0-18.0) g/dl Hct 34.0 L (40.1-51.0) % MCV 91.4 (80.0-100.0) fL MCH 30.9 (25.0-34.0) pg MCHC 33.8 (32.0-36.0) g/dL RDW Std Deviation 40.7 (36.4-46.3) fL RDW Coeff of Jm 12.1 (11.5-14.5) % Plt Count 284 (130-400) K/uL MPV 9.8 (9.4-12.4) fL APTT 51.5 H* (21.0-31.0) Seconds PTT Ratio 1.9 Sodium 136 (136-145) mmol/L Potassium 3.5 (3.5-5.1) mmol/L Chloride 101 (98-107) mmol/L Carbon Dioxide 28 (21-32) mmol/L Anion Gap 7 (3-11) BUN 11 (6-23) mg/dl Creatinine 0.66 (0.6-1.4) mg/dl Est Cr Clr Drug Dosing 81.2 ml/min Est GFR ( Amer) 105.8 ml/min Est GFR (Non-Af Amer) 91.3 ml/min BUN/Creatinine Ratio 16.7 (10-20) Glucose 99 (70-99(Fasting)) mg/dl Calcium 7.6 L (8.5-10.1) mg/dl Phosphorus 2.9 (2.5-4.9) mg/dl Magnesium 1.7 (1.7-2.4) mg/dl Medications Administered Current Inpatient Medications Carbidopa/Levodopa (Carbidopa/Levodopa 25/100mg Tab) 2 tab PO TIDM [facility] Stop: 06/17/22 07:59 Last Admin: 05/24/22 08:06 Dose: 2 tab Carbidopa/Levodopa (Carbidopa/Levodopa 25/100mg Ext Rel Tab) 1 tab PO HS [facility]ACE[facility] Stop: 06/17/22 20:59 Last Admin: 05/23/22 20:11 Dose: 1 tab Guaifenesin (Guaifenesin 600 Mg Tabcr) 1,200 mg PO Q12 [facility] Stop: 06/22/22 09:14 Last Admin: 05/24/22 08:06 Dose: 1,200 mg Heparin Sodium/Dextrose (Heparin Sodium/Dextrose) 25,000 units in 500 mls @ 16 mls/hr IV .Q24H [facility]; Protocol Stop: 06/17/22 01:44 Last Admin: 05/24/22 02:49 Dose: 800 units/hr, 16 mls/hr Promethazine HCl 6.25 mg/ (Sodium Chloride) 50.25 mls @ 201 mls/hr IV Q6H PRN PRN Reason: Nausea And Vomiting Stop: 06/17/22 05:08 Pantoprazole Sodium 40 mg/ (Syringe) 10 mls @ 5 mls/min IV DAILY [facility] Stop: 06/18/22 08:59 Last Admin: 05/24/22 08:06 Dose: 5 mls/min Ampicillin Sodium/Sulbactam Sodium 3,000 mg/ Sodium Chloride 108 mls @ 200 mls/hr IV Q6H [facility]; Protocol Stop: 05/27/22 18:59 Last Infusion: 05/24/22 09:05 Dose: Infused Latanoprost (Latanoprost 0.005% Op Soln 2.5 Ml Btl) 1 drops OPB HS [facility] Stop: 06/17/22 20:59 Last Admin: 05/23/22 20:13 Dose: 1 drops
[2022-05-24] MEDS: CARBIDOPA/LEVODOPA 25/100MG EXT REL TAB PO SCH (21:09)
[2022-05-24] MEDS: LATANOPROST 0.005% OP SOLN 2.5 ML BTL OPB SCH (21:10)
[2022-05-25] MEDS: AMPICILLIN/SULBACTAM SOD 3,000 MG in 0.9 % SODIUM CHLORIDE 100 ML IV SCH ×4 (00:53→19:00)
[2022-05-25 06:03] LABS: Hemoglobin 11.9 g/dl (14.0-18.0); Mean Corpuscular Hemoglobin 30.4 pg (25.0-34.0); Mean Corpuscular Volume 89.5 fL (80.0-100.0); Mean Platelet Volume 9.9 fL (9.4-12.4); Platelet Count 308 K/uL (130-400); RDW Standard Deviation 39.4 fL (36.4-46.3); Red Blood Count 3.91 M/uL (4.63-6.08); White Blood Count 6.57 K/ul (4.8-10.8)
[2022-05-25 06:25] LABS: BUN Creatinine Ratio 9.9 (10-20); Calcium 7.8 mg/dl (8.5-10.1); Creatinine Clr Calc Pharmacy 66.2 ml/min; Est GFR (African American) 97.3 ml/min; Est GFR (Non-African American) 83.9 ml/min; Magnesium 1.9 mg/dl (1.7-2.4); Phosphorus 3.3 mg/dl (2.5-4.9); Potassium 3.6 mmol/L (3.5-5.1)
[2022-05-25 06:35] LABS: Partial Thromboplastin Ratio 2.1
[2022-05-25 06:38] LABS: Partial Thromboplastin Time 56.7 Seconds (21.0-31.0)
[2022-05-25] MEDS: HEPARIN SODIUM/DEXTROSE 25,000 UNITS/500 ML BAG IV SCH (06:42)
[2022-05-25] MEDS: guaiFENesin 600 MG TABCR PO SCH ×2 (07:34→20:20)
[2022-05-25] MEDS: CARBIDOPA/LEVODOPA 25/100MG TAB PO SCH ×3 (07:35→16:31)
[2022-05-25] MEDS: PANTOprazole 40 MG in SYRINGE 0 ML IV SCH (07:35)
--- NOTE | 2022-05-25 08:04 | Hospitalist Progress Note ---
Date of Service May 25, 2022 Assessment & Plan (1) Pulmonary embolism: Plan: Acute Pulmonary Embolism Right lower extremity DVT Possible PE due to right femoral DVT --CTA showed Extensive right main, lobar, segmental, and subsegmental pulmonary emboli --Venous Doppler:The right common femoral vein is patent. There is occlusive thrombus seen within the right superficial femoral, popliteal, and peroneal veins. The left deep venous structures appear patent. --ECHO: Normal LV chamber size with mild concentric LVH. Normal LV systolic function, EF 60 to 65%. No segmental left ventricle wall motion abnormality noted. Grade 1 diastolic dysfunction. Right ventricle cavity size is normal. Right ventricle systolic function is borderline reduced. Mild mitral regurgitation. Borderline pulmonary hypertension with a PA systolic pressure of 41 mmHg assuming a right atrial pressure of 3 mmHg. -- Continue IV heparin - currently on suppl. O2 vs RA Continue current management Aspiration pna - pt febrile, CXR repeated - concerning for aspiration - Unasyn started, will cont for now - per speech eval - pt likely aspirates on secretions - Plan for video swallow study today (05/25) Small bowel obstruction --CT ABD:Findings consistent with a high-grade small bowel obstruction, as described above. Multiple transition points within the right lower quadrant. Moderate wall thickening of several ileal loops with associated mesenteric stranding and interloop fluid/ascites. A closed loop small bowel obstruction with bowel ischemia cannot be excluded. No pneumatosis, portal venous gas or free air. -Appreciate surgery input Conservative management for now Continue bowel rest, IV fluids Pain control continue NG tube Repeat KUB c/w small bowel obstruction Discussed w/ surgery - thought about small bowel follow through study - but don't think pt can tolerate - per surgery discussed w/ Continue management as per surgery 05/22 NG tube removed 05/23 - no abd. pain after NGT removed Failure to thrive - pt barely responsive few days ago not answering questions, hardly following any commands - seen by carpenter wooden tank erecting, surgery, neurology also consulted, appreciate their input - per carpenter wooden tank erecting - palliative med. recommended, and they were consulted, appreciate their input - mental status improved H/O CVA --CT Head:No acute intracranial findings. Monitor GERD: on PPI Prediabetes HbA1C:5.9 in Feb 2022 Troponin elevation Likely type II MA secondary to PE DVT Px: IV heparin Code Status - DNR/DNI -discussed CODE STATUS in detail with patient's , who also brought in the paperwork which was copied into the chart. Disposition - uncertain PT/OT prior to discharge Admission and Anticipated Discharge Date Admission Date: May 18, 2022 Subjective Patient is seen in follow up of PE, SBO, Parkinson's dis. Patient is resting, in NAD. Able to answer simple questions appropriately. Pt denies any chest pain, or increased shortness of breath. Denies abd. pain. No n/v Speech eval obtained. Currently patient is on clear liquid diet, concern that he is aspirating even with secretions. Speech therapy to follow. Plan for video swallow study today. Family updated at the bedside over the weekend. Review of Systems Review of Systems: All systems reviewed & are unremarkable except as noted in Subjective Physical Exam Physical Exam: General Appearance: Thin, frail, chronically appearing, no apparent distress Head: normocephalic, Atraumatic Eyes: normal inspection, EOMI Neck: supple Respiratory/Chest: No accessory muscle use, +rhonchi, coughs w/ deep inspiration Cardiovascular: S1, S2, No murmur Abdomen/GI:Soft, Non tender, +Bowel sounds Extremities/Musculoskeletal:normal inspection, mild edema Neurologic/Psych: drowsy but opening eyes, and answering simple questions appropriately Skin: normal color, warm Results & Data Results & Data ([facility]) Vital Signs (Past 12 Hours) Vital Signs Temp Pulse Pulse Resp BP Pulse Ox O2 Del Method 05/25/22 03:49 36.9 C 71 14 166/87 H 92 Room Air 05/25/22 01:08 70 05/25/22 00:00 36.9 C 65 18 148/79 H 91 Room Air Laboratory Results 05/25/22 05/25/22 05/25/22 Range/Units 05:37 05:37 05:37 WBC 6.57 (4.8-10.8) K/ul RBC 3.91 L (4.63-6.08) M/uL Hgb 11.9 L (14.0-18.0) g/dl Hct 35.0 L (40.1-51.0) % MCV 89.5 (80.0-100.0) fL MCH 30.4 (25.0-34.0) pg MCHC 34.0 (32.0-36.0) g/dL RDW Std Deviation 39.4 (36.4-46.3) fL RDW Coeff of Jm 12.0 (11.5-14.5) % Plt Count 308 (130-400) K/uL MPV 9.9 (9.4-12.4) fL APTT 56.7 H* (21.0-31.0) Seconds PTT Ratio 2.1 Sodium 135 L (136-145) mmol/L Potassium 3.6 (3.5-5.1) mmol/L Chloride 100 (98-107) mmol/L Carbon Dioxide 30 (21-32) mmol/L Anion Gap 5 (3-11) BUN 8 (6-23) mg/dl Creatinine 0.81 (0.6-1.4) mg/dl Est Cr Clr Drug Dosing 66.2 ml/min Est GFR ( Amer) 97.3 ml/min Est GFR (Non-Af Amer) 83.9 ml/min BUN/Creatinine Ratio 9.9 L (10-20) Glucose 105 H (70-99(Fasting)) mg/dl Calcium 7.8 L (8.5-10.1) mg/dl Phosphorus 3.3 (2.5-4.9) mg/dl Magnesium 1.9 (1.7-2.4) mg/dl Medications Administered Current Inpatient Medications Carbidopa/Levodopa (Carbidopa/Levodopa 25/100mg Tab) 2 tab PO TIDM [facility]ACEY Stop: 06/17/22 07:59 Last Admin: 05/25/22 07:35 Dose: 2 tab Carbidopa/Levodopa (Carbidopa/Levodopa 25/100mg Ext Rel Tab) 1 tab PO HS [facility]ACE[facility] Stop: 06/17/22 20:59 Last Admin: 05/24/22 21:09 Dose: 1 tab Guaifenesin (Guaifenesin 600 Mg Tabcr) 1,200 mg PO Q12 [facility] Stop: 06/22/22 09:14 Last Admin: 05/25/22 07:34 Dose: 1,200 mg Heparin Sodium/Dextrose (Heparin Sodium/Dextrose) 25,000 units in 500 mls @ 16 mls/hr IV .Q24H [facility]; Protocol Stop: 06/17/22 01:44 Last Admin: 05/25/22 06:42 Dose: 800 units/hr, 16 mls/hr Promethazine HCl 6.25 mg/ (Sodium Chloride) 50.25 mls @ 201 mls/hr IV Q6H PRN PRN Reason: Nausea And Vomiting Stop: 06/17/22 05:08 Pantoprazole Sodium 40 mg/ (Syringe) 10 mls @ 5 mls/min IV DAILY [facility] Stop: 06/18/22 08:59 Last Admin: 05/25/22 07:35 Dose: 5 mls/min Ampicillin Sodium/Sulbactam Sodium 3,000 mg/ Sodium Chloride 108 mls @ 200 mls/hr IV Q6H [facility]; Protocol Stop: 05/27/22 18:59 Last Infusion: 05/25/22 07:28 Dose: Infused Latanoprost (Latanoprost 0.005% Op Soln 2.5 Ml Btl) 1 drops OPB HS [facility] Stop: 06/17/22 20:59 Last Admin: 05/24/22 21:10 Dose: 1 drops
--- NOTE | 2022-05-25 09:51 | Surgery Progress Note ---
Date of Service May 25, 2022 Assessment & Plan (1) SBO (small bowel obstruction): (2) Parkinson disease: (3) Pulmonary embolism: Plan 82-year-old male with history of Parkinson's, chronic kidney disease stage III, prediabetes, hyperlipidemia presented to the emergency room with achy abdominal pain as well as increased weakness. CT scan of the abdomen and pelvis showing high-grade small bowel obstruction with 2 transition points as well as multiple pulmonary emboli. 05/25/2022: - more alert today, in no distress - abdomen soft - Plan: No surgical intervention recommended at this time. Video swallow today to determine advancement of diet may need bowel regimen , can determine after video swallow continue medical management Our services signing off, please call with questions/concerns. Dr. Munroe has seen and was present during my examination and agrees with above. Admission and Anticipated Discharge Date Admission Date: May 18, 2022 Subjective sitting up in bed, more alert today denies of any abdominal pain not sure if passing gas today maybe 1-2 bowel movements but unsure states he tried clear liquids Discussed with Dr. Howard at bedside, concern for aspiration of secretions, scheduled for video swallow today Physical Exam Constitutional: + frail appearing, cooperative and comfortable; no acute distress, not ill appearing and not lethargic Respiratory: normal respiratory effort; no respiratory distress and no labored breathing Gastrointestinal (Abdomen): Inspection/Auscultation: abdomen normal to inspection; abdomen not distended Percussion/Palpation: abdomen soft; abdomen nontender, no guarding and abdomen not rigid Skin: no rashes, warm and dry Psychiatric: Orientation: alert; + not oriented x 3 Results & Data ([facility]) Vital Signs (Past 12 Hours) Vital Signs Temp Pulse Pulse Resp BP Pulse Ox O2 Del Method 05/25/22 08:04 36.8 C 76 16 145/78 H 91 Oxymask 05/25/22 03:49 36.9 C 71 14 166/87 H 92 Room Air 05/25/22 01:08 70 05/25/22 00:00 36.9 C 65 18 148/79 H 91 Room Air O2 Flow Rate 05/25/22 08:04 2 05/25/22 03:49 05/25/22 01:08 05/25/22 00:00 Laboratory Results 12/12/22 12/12/22 12/12/22 Range/Units 05:37 05:37 05:37 WBC 6.57 (4.8-10.8) K/ul RBC 3.91 L (4.63-6.08) M/uL Hgb 11.9 L (14.0-18.0) g/dl Hct 35.0 L (40.1-51.0) % MCV 89.5 (80.0-100.0) fL MCH 30.4 (25.0-34.0) pg MCHC 34.0 (32.0-36.0) g/dL RDW Std Deviation 39.4 (36.4-46.3) fL RDW Coeff of Jm 12.0 (11.5-14.5) % Plt Count 308 (130-400) K/uL MPV 9.9 (9.4-12.4) fL APTT 56.7 H* (21.0-31.0) Seconds PTT Ratio 2.1 Sodium 135 L (136-145) mmol/L Potassium 3.6 (3.5-5.1) mmol/L Chloride 100 (98-107) mmol/L Carbon Dioxide 30 (21-32) mmol/L Anion Gap 5 (3-11) BUN 8 (6-23) mg/dl Creatinine 0.81 (0.6-1.4) mg/dl Est Cr Clr Drug Dosing 66.2 ml/min Est GFR ( Amer) 97.3 ml/min Est GFR (Non-Af Amer) 83.9 ml/min BUN/Creatinine Ratio 9.9 L (10-20) Glucose 105 H (70-99(Fasting)) mg/dl Calcium 7.8 L (8.5-10.1) mg/dl Phosphorus 3.3 (2.5-4.9) mg/dl Magnesium 1.9 (1.7-2.4) mg/dl
--- NOTE | 2022-05-25 11:56 | Fluoroscopy Report ---
FL video swallow HISTORY: Assess swallow skills TECHNIQUE: Video fluoroscopic evaluation of swallowing was performed in the AP and lateral projection s by the speech pathology staff. The patient is fed nectar-thick and thin liquid barium, a barium coa good wafer, and barium pudding. FLUOROSCOPY TIME: 3.4 minutes. A cine loop submitted.. COMPARISON STUDY: None. FINDINGS: There is normal hyoid excursion and epiglottic deflection. Multiple episodes of penetration with the thin liquid barium throughout the examination with a few episodes of trace aspiration. Ther e is moderate vallecular residue seen throughout the examination. IMPRESSION: 1. A few episodes of trace aspiration with the thin liquid barium only. 2. Please see the speech pathologist report for detailed findings and recommendations. ACT 112: Negative or not required by law. Electronically signed by: Sebastian Lincoln M.D. 05/25/2022 11:55 AM
[2022-05-25] MEDS: ENOXAPARIN 80 MG/0.8 ML SYR SQ SCH (20:20)
[2022-05-25] MEDS: CARBIDOPA/LEVODOPA 25/100MG EXT REL TAB PO SCH (20:20)
[2022-05-25] MEDS: LATANOPROST 0.005% OP SOLN 2.5 ML BTL OPB SCH (20:20)
[2022-05-26] MEDS: AMPICILLIN/SULBACTAM SOD 3,000 MG in 0.9 % SODIUM CHLORIDE 100 ML IV SCH ×4 (01:00→19:49)
[2022-05-26] MEDS: HEPARIN SODIUM/DEXTROSE 25,000 UNITS/500 ML BAG IV SCH ×2 (01:58→02:00)
[2022-05-26 06:02] LABS: Hematocrit (blood only) 36.2 % (40.1-51.0); Hemoglobin 12.3 g/dl (14.0-18.0); Mean Corpuscular Hemoglobin 30.1 pg (25.0-34.0); Mean Corpuscular Volume 88.5 fL (80.0-100.0); Mean Platelet Volume 9.8 fL (9.4-12.4); Platelet Count 338 K/uL (130-400); RDW Coefficient of Variation 11.8 % (11.5-14.5); Red Blood Count 4.09 M/uL (4.63-6.08); White Blood Count 5.98 K/ul (4.8-10.8)
[2022-05-26 06:12] LABS: Partial Thromboplastin Ratio 1.3; Partial Thromboplastin Time 35.6 Seconds (21.0-31.0)
[2022-05-26] MEDS: ENOXAPARIN 80 MG/0.8 ML SYR SQ SCH (06:23)
[2022-05-26 06:24] LABS: BUN Creatinine Ratio 8.2 (10-20); Calcium 7.8 mg/dl (8.5-10.1); Creatinine Clr Calc Pharmacy 62.5 ml/min; Est GFR (African American) 95.4 ml/min; Est GFR (Non-African American) 82.3 ml/min; Phosphorus 3.2 mg/dl (2.5-4.9); Potassium 3.4 mmol/L (3.5-5.1)
[2022-05-26] MEDS: guaiFENesin 600 MG TABCR PO SCH ×2 (08:03→20:22)
[2022-05-26] MEDS: PANTOprazole 40 MG in SYRINGE 0 ML IV SCH (08:03)
[2022-05-26] MEDS: CARBIDOPA/LEVODOPA 25/100MG TAB PO SCH ×3 (08:04→17:06)
--- NOTE | 2022-05-26 09:53 | Hospitalist Progress Note ---
Date of Service May 26, 2022 Assessment & Plan (1) Pulmonary embolism: Plan: Acute Pulmonary Embolism Right lower extremity DVT Possible PE due to right femoral DVT --CTA showed Extensive right main, lobar, segmental, and subsegmental pulmonary emboli --Venous Doppler:The right common femoral vein is patent. There is occlusive thrombus seen within the right superficial femoral, popliteal, and peroneal veins. The left deep venous structures appear patent. --ECHO: Normal LV chamber size with mild concentric LVH. Normal LV systolic function, EF 60 to 65%. No segmental left ventricle wall motion abnormality noted. Grade 1 diastolic dysfunction. Right ventricle cavity size is normal. Right ventricle systolic function is borderline reduced. Mild mitral regurgitation. Borderline pulmonary hypertension with a PA systolic pressure of 41 mmHg assuming a right atrial pressure of 3 mmHg. -- Continued IV heparin -> switched to subcu Lovenox, plan for p.o. DOAC once patient can take p.o. meds safely - currently on suppl. O2 vs RA Continue current management Aspiration pna - pt febrile, CXR repeated - concerning for aspiration - Unasyn started, will cont for now - per speech eval - pt likely aspirates on secretions - s/p video swallow study (05/25) Small bowel obstruction --CT ABD:Findings consistent with a high-grade small bowel obstruction, as described above. Multiple transition points within the right lower quadrant. Moderate wall thickening of several ileal loops with associated mesenteric stranding and interloop fluid/ascites. A closed loop small bowel obstruction with bowel ischemia cannot be excluded. No pneumatosis, portal venous gas or free air. -Appreciate surgery input Conservative management for now Continue bowel rest, IV fluids Pain control continue NG tube Repeat KUB c/w small bowel obstruction Discussed w/ surgery - thought about small bowel follow through study - but don't think pt can tolerate - per surgery discussed w/ Continue management as per surgery 05/22 NG tube removed 05/23 - no abd. pain after NGT removed 05/26 -no abdominal pain, abdomen soft on physical exam, diet now full liquid, however patient has no BM, and continues to have poor p.o. intake Failure to thrive - pt barely responsive several days ago not answering questions, hardly following any commands - seen by grinder operator tool, surgery, neurology also consulted, appreciate their input - per grinder operator tool - palliative med. recommended, and they were consulted, appreciate their input - mental status improved H/O CVA --CT Head:No acute intracranial findings. Monitor GERD: on PPI Prediabetes HbA1C:5.9 in Feb 2022 Troponin elevation Likely type II GA secondary to PE DVT Px: IV heparin Code Status - DNR/DNI -discussed CODE STATUS in detail with patient's , who also brought in the paperwork which was copied into the chart. Disposition - uncertain PT/OT prior to discharge Admission and Anticipated Discharge Date Admission Date: May 18, 2022 Subjective Patient is seen in follow up of PE, SBO, Parkinson's dis. Patient is resting, in NAD. Able to answer simple questions appropriately. He is more awake, and altogether looks the best since I met him. Pt denies any chest pain, or increased shortness of breath. Denies abd. pain. No n/v Currently diet advanced to full liquid. Concern for aspiration. No BM yet. Review of Systems Review of Systems: All systems reviewed & are unremarkable except as noted in Subjective Physical Exam Physical Exam: General Appearance: Thin, frail, chronically appearing, no apparent distress Head: normocephalic, Atraumatic Eyes: normal inspection, EOMI Neck: supple Respiratory/Chest: No accessory muscle use, +rhonchi, coughs w/ deep inspiration Cardiovascular: S1, S2, No murmur Abdomen/GI:Soft, Non tender, +Bowel sounds Extremities/Musculoskeletal:normal inspection, mild edema Neurologic/Psych: drowsy but opening eyes, and answering simple questions appropriately Skin: normal color, warm Results & Data Results & Data ([facility]) Vital Signs (Past 12 Hours) Vital Signs Temp Pulse Pulse Resp BP Pulse Ox O2 Del Method 05/26/22 09:28 Room Air 05/26/22 07:27 36.5 C 73 17 162/84 H 94 Room Air 05/25/22 22:30 63 05/26/22 02:51 36.5 C 66 17 154/86 H 95 Room Air 05/25/22 22:49 37.2 C 64 16 147/78 H 94 Room Air Laboratory Results 05/26/22 05/26/22 05/26/22 Range/Units 05:26 05:26 05:26 WBC 5.98 (4.8-10.8) K/ul RBC 4.09 L (4.63-6.08) M/uL Hgb 12.3 L (14.0-18.0) g/dl Hct 36.2 L (40.1-51.0) % MCV 88.5 (80.0-100.0) fL MCH 30.1 (25.0-34.0) pg MCHC 34.0 (32.0-36.0) g/dL RDW Std Deviation 38.0 (36.4-46.3) fL RDW Coeff of Jm 11.8 (11.5-14.5) % Plt Count 338 (130-400) K/uL MPV 9.8 (9.4-12.4) fL APTT 35.6 H (21.0-31.0) Seconds PTT Ratio 1.3 Sodium 137 (136-145) mmol/L Potassium 3.4 L (3.5-5.1) mmol/L Chloride 101 (98-107) mmol/L Carbon Dioxide 30 (21-32) mmol/L Anion Gap 6 (3-11) BUN 7 (6-23) mg/dl Creatinine 0.85 (0.6-1.4) mg/dl Est Cr Clr Drug Dosing 62.5 ml/min Est GFR ( Amer) 95.4 ml/min Est GFR (Non-Af Amer) 82.3 ml/min BUN/Creatinine Ratio 8.2 L (10-20) Glucose 95 (70-99(Fasting)) mg/dl Calcium 7.8 L (8.5-10.1) mg/dl Phosphorus 3.2 (2.5-4.9) mg/dl Magnesium 2.0 (1.7-2.4) mg/dl Medications Administered Current Inpatient Medications Carbidopa/Levodopa (Carbidopa/Levodopa 25/100mg Tab) 2 tab PO TIDM LACEY Stop: 06/17/22 07:59 Last Admin: 05/26/22 08:04 Dose: 2 tab Carbidopa/Levodopa (Carbidopa/Levodopa 25/100mg Ext Rel Tab) 1 tab PO HS LACEY Stop: 06/17/22 20:59 Last Admin: 05/25/22 20:20 Dose: 1 tab Enoxaparin Sodium (Enoxaparin 80 Mg/0.8 Ml Syr) 70 mg SQ Q12H LACEY Stop: 06/24/22 19:14 Last Admin: 05/26/22 06:23 Dose: 70 mg Guaifenesin (Guaifenesin 600 Mg Tabcr) 1,200 mg PO Q12 LACEY Stop: 06/22/22 09:14 Last Admin: 05/26/22 08:03 Dose: 1,200 mg Promethazine HCl 6.25 mg/ (Sodium Chloride) 50.25 mls @ 201 mls/hr IV Q6H PRN PRN Reason: Nausea And Vomiting Stop: 06/17/22 05:08 Pantoprazole Sodium 40 mg/ (Syringe) 10 mls @ 5 mls/min IV DAILY LACEY Stop: 06/18/22 08:59 Last Admin: 05/26/22 08:03 Dose: 5 mls/min Ampicillin Sodium/Sulbactam Sodium 3,000 mg/ Sodium Chloride 108 mls @ 200 mls/hr IV Q6H [facility]; Protocol Stop: 05/27/22 18:59 Last Infusion: 05/26/22 07:23 Dose: Infused Potassium Chloride (K Alberto / Wtr) 10 meq in 100 mls @ 100 mls/hr IV Q1H LACEY Stop: 05/26/22 11:59 Latanoprost (Latanoprost 0.005% Op Soln 2.5 Ml Btl) 1 drops OPB HS LACEY Stop: 06/17/22 20:59 Last Admin: 05/25/22 20:20 Dose: 1 drops
[2022-05-26] MEDS ORDERED: DOCUSATE SODIUM 100 MG CAP PO ONE (10:53)
[2022-05-26] MEDS: POTASSIUM CHLORIDE / WTR 10 MEQ/100 ML PLCT IV SCH ×2 (10:59→12:09)
--- NOTE | 2022-05-26 13:13 | Surgery Progress Note ---
Date of Service May 26, 2022 Assessment & Plan (1) SBO (small bowel obstruction): Plan: F/U SBO, resolved SBO, pt can be discharged to half-way from surgical point, sign off today, please call with questions, thanks, (2) Parkinson disease: (3) Pulmonary embolism: Plan 82-year-old male with history of Parkinson's, chronic kidney disease stage III, prediabetes, hyperlipidemia presented to the emergency room with achy abdominal pain as well as increased weakness. CT scan of the abdomen and pelvis showing high-grade small bowel obstruction with 2 transition points as well as multiple pulmonary emboli. 05/25/2022: - more alert today, in no distress - abdomen soft - Plan: No surgical intervention recommended at this time. Video swallow today to determine advancement of diet may need bowel regimen , can determine after video swallow continue medical management Our services signing off, please call with questions/concerns. Dr. Munroe has seen and was present during my examination and agrees with above. Admission and Anticipated Discharge Date Admission Date: May 18, 2022 Supervising Physician Co-Signing Physician Notes Patient discussed with Stephane BRANCH, not examined as patient was sleeping comfortably. Labs reviewed, agree with above. 82-year-old male found to have small bowel obstruction. He continues to pass flatus and feel better. Appears that his small bowel obstruction has resolved. May advance his diet as to lerated, however he has been noted to cough and possibly aspirate with liquids. Should consider swallow evaluation prior to advancement of diet. Subjective Patient is seen in follow up of PE, SBO, Parkinson's dis. Patient is resting, in NAD. Able to answer simple questions appropriately. Pt denies any chest pain, or increased shortness of breath. Denies abd. pain. No n/v Speech eval obtained. Currently patient is on clear liquid diet, concern that he is aspirating even with secretions. Speech therapy to follow. Plan for video swallow study today. Family updated at the bedside over the weekend. 05/26/2022 1:09PM Dr. Munroe F/U SBO, pt is doing better, passed BM, no abdominal pain, speech eval obtained, on clear diet, Physical Exam Constitutional: WD/WN, vitals as above Neck: trachea midline, no thyromegaly Respiratory: normal respiratory effort, lungs clear to auscultation Cardiovascular: RRR, no murmur, no edema Gastrointestinal (Abdomen): soft, NT, ND, BS +, Musculoskeletal: no cyanosis or clubbing, extremities motor strength 5/5 Results & Data ([facility]) Vital Signs (Past 12 Hours) Vital Signs Temp Pulse Resp BP Pulse Ox O2 Del Method 05/26/22 10:33 36.7 C 69 17 136/87 93 Room Air 05/26/22 09:28 Room Air 05/26/22 07:27 36.5 C 73 17 162/84 H 94 Room Air 05/26/22 02:51 36.5 C 66 17 154/86 H 95 Room Air
[2022-05-26] MEDS: LATANOPROST 0.005% OP SOLN 2.5 ML BTL OPB SCH (20:22)
[2022-05-26] MEDS: ENOXAPARIN INJ 60 MG/0.6 ML SYR SQ SCH (20:22)
[2022-05-26] MEDS: CARBIDOPA/LEVODOPA 25/100MG EXT REL TAB PO SCH (20:23)
[2022-05-27] MEDS: AMPICILLIN/SULBACTAM SOD 3,000 MG in 0.9 % SODIUM CHLORIDE 100 ML IV SCH ×3 (01:42→13:20)
[2022-05-27 06:35] LABS: Hematocrit (blood only) 35.8 % (40.1-51.0); Hemoglobin 12.2 g/dl (14.0-18.0); Mean Corpuscular Hemoglobin 30.7 pg (25.0-34.0); Mean Corpuscular Hgb Conc 34.1 g/dL (32.0-36.0); Mean Corpuscular Volume 90.2 fL (80.0-100.0); Mean Platelet Volume 9.7 fL (9.4-12.4); Platelet Count 353 K/uL (130-400); RDW Coefficient of Variation 12.2 % (11.5-14.5); RDW Standard Deviation 40.1 fL (36.4-46.3); Red Blood Count 3.97 M/uL (4.63-6.08); White Blood Count 6.57 K/ul (4.8-10.8)
[2022-05-27 07:02] LABS: BUN Creatinine Ratio 8.6 (10-20); Calcium 7.8 mg/dl (8.5-10.1); Creatinine Clr Calc Pharmacy 64.9 ml/min; Est GFR (African American) 97.3 ml/min; Est GFR (Non-African American) 83.9 ml/min; Potassium 3.6 mmol/L (3.5-5.1)
[2022-05-27] MEDS: CARBIDOPA/LEVODOPA 25/100MG TAB PO SCH ×3 (08:00→16:31)
[2022-05-27] MEDS: ENOXAPARIN INJ 60 MG/0.6 ML SYR SQ SCH ×2 (08:01→20:58)
[2022-05-27] MEDS: PANTOprazole 40 MG in SYRINGE 0 ML IV SCH (08:01)
[2022-05-27] MEDS: guaiFENesin 600 MG TABCR PO SCH ×2 (08:01→20:58)
--- NOTE | 2022-05-27 10:03 | Palliative Care Progress Note ---
Date of Service May 27, 2022 Assessment & Plan (1) Palliative care encounter: Admission and Anticipated Discharge Date Admission Date: May 18, 2022 Subjective pt has shown continued improvement with conservative management. he will require placement, this was expected and has been in agreement no further acute IP pall med needs, we will sign off. no charge submitted/pt not seen, chart reviewed in detail. Ilene Sutherland DNP Clinical Director, Palliative Medicine Results & Data ([facility]) Vital Signs (Past 12 Hours) Vital Signs Temp Pulse Pulse Resp BP Pulse Ox O2 Del Method 05/27/22 08:00 36.6 C 73 15 169/96 H 95 Room Air 05/27/22 02:58 36.8 C 78 20 165/88 H 92 Room Air 05/27/22 00:05 66 05/26/22 23:11 36.9 C 67 17 134/67 96 Room Air PG Care Time/CCT Total # of Minutes Spent Total Time Spent with Patient: Total time spent is greater than 50% in coordination of care (as documented) at patient's floor/unit and/or counseling patient: Coding Level of Care Code None Diagnoses Palliative care encounter Z51.5
--- NOTE | 2022-05-27 13:25 | Hospitalist Progress Note ---
Date of Service May 27, 2022 Assessment & Plan (1) Pulmonary embolism: Plan: 82-year-old gentleman with PMH of Parkinson's disease, old 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 He is being managed for the following: Acute Pulmonary Embolism Right lower extremity DVT Possible PE due to right femoral DVT --CTA Chest showed Extensive right main, lobar, segmental, and subsegmental pulmonary emboli --Venous Doppler: Occlusive thrombus seen within the right superficial femoral, popliteal, and peroneal veins. The left deep venous structures appear patent. --ECHO: Normal LV chamber size with mild concentric LVH. Normal LV systolic function, EF 60 to 65%. No segmental left ventricle wall motion abnormality noted. Grade 1 diastolic dysfunction. Right ventricle cavity size is normal. Right ventricle systolic function is borderline reduced. Mild mitral regurgitation. Borderline pulmonary hypertension with a PA systolic pressure of 41 mmHg assuming a right atrial pressure of 3 mmHg. Was started on IV heparin drip, switched to Lovenox, will put on NOAC per 's interest early in admission upon discharge. We will send Sarabjit to pharmacy for cost eval. Currently on RA, and hemodynamically stable. Continue current management Aspiration pneumonia Patient afebrile since after 05/21. Unasyn was started. 07/26 videofluoroscopic swallow eval with few episodes of trace aspiration with the thin liquid barium. Speech evaluated, appreciate recommendation. Supervised meals, meals when fully alert and upright, give medicines in a carrier, oral hygiene, single bites/small sips/slow rate. No straws. Alternate solids and liquids. Maintain reflux precautions with alternating solid and liquid/HOB 30 degrees all the time/upright with meals for 30+ minute. WBC WNL, Unasyn course will complete today. Small bowel obstruction --05/17 CT ABD:Findings consistent with a high-grade small bowel obstruction. Multiple transition points within the right lower quadrant. Moderate wall thickening of several ileal loops with associated mesenteric stranding and interloop fluid/ascites. A closed loop small bowel obstruction with bowel ischemia cannot be excluded. No pneumatosis, portal venous gas or free air. -- f/u KUB XR other dates: persistent SBO. --f/u KUB XR 05/21: Gas-distended loops of small bowel measure up to 41 mm in diameter. These are stable to minimally decreased from prior exam compatible with continuing small bowel obstruction. -- NG tube removed 05/22, patient with improvement in belly pain after NGT removed per records. Surgery evaluated, patient has not moved bowel, is moving gas, reports some belly pain on and off, will get follow-up x-ray KUB today. Advance diet as tolerated. Low fiber diet. Bowel regimen. Failure to thrive - pt barely responsive for several days early in admission, not answering questions, hardly following any commands - seen by strawhat sizer, surgery, neurology, appreciate their input - per strawhat sizer - palliative med. recommended, and they were consulted, appreciate their input - mental status improved, still w/ poor appetite. -Speech and Nutrition evaled, appreciate recs. Troponin elevation: Likely type II SD secondary to PE. Other chronic medical conditions: History of CVA, GERD, prediabetes [A1c of 5.9 in February 2022] --resume home meds as able. DVT prophylaxis: On Lovenox subcu therapeutic dose Code Status - DNR/DNI. Disposition: PT/OT, CM to assist with DC planning, expect DC in next 1 to 2 days. Admission and Anticipated Discharge Date Admission Date: May 18, 2022 Subjective Patient seen and examined at bedside as a follow-up of acute PE, aspiration pneumonia, small bowel obstruction, failure to thrive. Patient was lying in bed, alert and oriented x2, patient's by bedside who was updated and answered all questions, patient reports having no bowel movement, patient denies any new acute event overnight, patient reports moving gas and also reports some belly pain on and off since yesterday, will get KUB x- ray. Offers no other complaints. Physical Exam Physical Exam: GENERAL: Alert and oriented x2. NAD, on RA. Thin/frail/weak appearing. HEENT: No pallor, no icterus. Pupils equal, round and reactive to light. Oral mucosa moist. NECK: No JVD, no neck masses. HEART: S1 and S2 heard. Regular rate and rhythm. No murmur, no gallop. RESPIRATORY SYSTEM: Normal AP diameter. No accessory muscle use. No wheezing, b/b crackles. ABDOMEN: Soft, bowel sounds present, nontender, no distention. CENTRAL NERVOUS SYSTEM: No facial droop. Speech is clear. Obeys simple commands. Moves extremities. EXTREMITIES: No edema, no erythema seen. Results & Data Results & Data ([facility]) Vital Signs (Past 12 Hours) Vital Signs Temp Pulse Pulse Resp BP Pulse Ox O2 Del Method 05/27/22 11:01 73 05/27/22 10:12 Room Air 05/27/22 08:00 36.6 C 73 15 169/96 H 95 Room Air 05/27/22 02:58 36.8 C 78 20 165/88 H 92 Room Air
--- NOTE | 2022-05-27 14:23 | XRay Report ---
KUB CLINICAL HISTORY: Generalized abdominal pain. FINDINGS: 2 AP supine abdominal radiographs are compared to study dated 05/21/2022 and correlated with abdominal CT dated 05/18/2022. There is a nonobstructed abdominal bowel gas pattern. Residual enteric contrast is noted in the right colon. There is moderate colonic fecal retention. No evidence of intr aperitoneal free air is seen on these supine images. No abnormal abdominal calcifications are seen. P ostoperative change is noted in the right lower quadrant abdominal wall. The skeletal structures are osteopenic and appear intact. There is mild to moderate lumbosacral spondylosis. IMPRESSION: 1. No acute abnormality is identified. 2. Mild to moderate colonic fecal retention. Electronically signed by: Cecil Wilkinson M.D. 05/27/2022 2:21 PM
[2022-05-27] MEDS: POLYETHYLENE (MIRALAX) 17 GM PACK PO SCH (14:41)
[2022-05-27] MEDS: CARBIDOPA/LEVODOPA 25/100MG EXT REL TAB PO SCH (20:58)
[2022-05-27] MEDS: LATANOPROST 0.005% OP SOLN 2.5 ML BTL OPB SCH (20:58)
[2022-05-27] MEDS: DOCUSATE SODIUM 100 MG CAP PO SCH (20:58)
[2022-05-28 06:35] LABS: Hematocrit (blood only) 38.1 % (40.1-51.0); Mean Corpuscular Hemoglobin 30.7 pg (25.0-34.0); Mean Corpuscular Hgb Conc 34.1 g/dL (32.0-36.0); Mean Corpuscular Volume 89.9 fL (80.0-100.0); Mean Platelet Volume 9.4 fL (9.4-12.4); Platelet Count 380 K/uL (130-400); RDW Coefficient of Variation 12.3 % (11.5-14.5); RDW Standard Deviation 40.5 fL (36.4-46.3); Red Blood Count 4.24 M/uL (4.63-6.08); White Blood Count 6.28 K/ul (4.8-10.8)
[2022-05-28 07:12] LABS: BUN Creatinine Ratio 6.8 (10-20); Calcium 8.2 mg/dl (8.5-10.1); Creatinine Clr Calc Pharmacy 58.2 ml/min; Est GFR (Non-African American) 81.1 ml/min; Magnesium 1.9 mg/dl (1.7-2.4); Phosphorus 2.9 mg/dl (2.5-4.9); Potassium 3.7 mmol/L (3.5-5.1)
[2022-05-28] MEDS: DOCUSATE SODIUM 100 MG CAP PO SCH ×2 (08:31→20:12)
[2022-05-28] MEDS: CARBIDOPA/LEVODOPA 25/100MG TAB PO SCH ×3 (08:31→16:42)
[2022-05-28] MEDS: guaiFENesin 600 MG TABCR PO SCH ×2 (08:31→20:13)
[2022-05-28] MEDS: ENOXAPARIN INJ 60 MG/0.6 ML SYR SQ SCH ×2 (08:32→20:12)
[2022-05-28] MEDS: POLYETHYLENE (MIRALAX) 17 GM PACK PO SCH (08:38)
[2022-05-28] MEDS: PANTOprazole 40 MG TAB PO SCH (09:54)
[2022-05-28] MEDS: LOSARTAN POTASSIUM 25 MG TAB PO SCH (09:54)
[2022-05-28] MEDS ORDERED: SOD PHOSPHATE/SOD BIPHOSPHATE ENEMA 132 ML BTL PR STA (10:04)
--- NOTE | 2022-05-28 15:13 | Hospitalist Progress Note ---
Date of Service May 28, 2022 Assessment & Plan (1) Pulmonary embolism: Plan: 82-year-old gentleman with PMH of Parkinson's disease, old 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 He is being managed for the following: Acute Pulmonary Embolism Right lower extremity DVT Possible PE due to right femoral DVT --CTA Chest showed Extensive right main, lobar, segmental, and subsegmental pulmonary emboli --Venous Doppler: Occlusive thrombus seen within the right superficial femoral, popliteal, and peroneal veins. The left deep venous structures appear patent. --ECHO: Normal LV chamber size with mild concentric LVH. Normal LV systolic function, EF 60 to 65%. No segmental left ventricle wall motion abnormality noted. Grade 1 diastolic dysfunction. Right ventricle cavity size is normal. Right ventricle systolic function is borderline reduced. Mild mitral regurgitation. Borderline pulmonary hypertension with a PA systolic pressure of 41 mmHg assuming a right atrial pressure of 3 mmHg. Was started on IV heparin drip, switched to Lovenox --> Eliquis cost 176 dollars per month, Pt's made aware and is agreeable to cost. Currently on RA, and hemodynamically stable. Continue current management Aspiration pneumonia Patient afebrile since after 05/21. Unasyn was started. 07/26 videofluoroscopic swallow eval with few episodes of trace aspiration with t he thin liquid barium. Speech evaluated, appreciate recommendation. Supervised meals, meals when fully alert and upright, give medicines in a carrier, oral hygiene, single bites/small sips/slow rate. No straws. Alternate solids and liquids. Maintain reflux precautions with alternating solid and liquid/HOB 30 degrees all the time/upright with meals for 30+ minute. WBC WNL, s/p Unasyn course. Small bowel obstruction --05/17 CT ABD:Findings consistent with a high-grade small bowel obstruction. Multiple transition points within the right lower quadrant. Moderate wall thickening of several ileal loops with associated mesenteric stranding and interloop fluid/ascites. A closed loop small bowel obstruction with bowel ischemia cannot be excluded. No pneumatosis, portal venous gas or free air. -- f/u KUB XR other dates: persistent SBO. --f/u KUB XR 05/21: Gas-distended loops of small bowel measure up to 41 mm in diameter. These are stable to minimally decreased from prior exam compatible with continuing small bowel obstruction. -- NG tube removed 05/22, patient with improvement in belly pain after NGT calista alejandro per records. Surgery evaluated, appreciate recs Pt moved bowel 05/28, f/u XR KUB 05/27 w/ improvement in bowel gas pattern. c/w Low fiber diet. c/w Bowel regimen. Failure to thrive - pt barely responsive for several days early in admission, not answering questions, hardly following any commands - seen by rubber calender helper, surgery, neurology, appreciate their input - per rubber calender helper - palliative med. recommended, and they were consulted, appreciate their input - mental status improved, still w/ poor appetite. -Speech and Nutrition evaled, appreciate recs. Troponin elevation: Likely type II [place] secondary to PE. Other chronic medical conditions: History of CVA, GERD, prediabetes [A1c of 5.9 in February 2022] --resume home meds as able. DVT prophylaxis: On Lovenox subcu therapeutic dose Code Status - DNR/DNI. Disposition: PT/OT, CM to assist with DC planning, stable for DC. Admission and Anticipated Discharge Date Admission Date: May 18, 2022 Subjective Patient seen and examined at bedside as a follow-up of acute PE, aspiration pneumonia, small bowel obstruction, failure to thrive. Patient was lying in bed, alert and oriented x3, per RN eating ok, had large BM today, making progress w/ PT, pt denies belly pain. Offers no other complaints. Physical Exam Physical Exam: GENERAL: Alert and oriented x3. NAD, on RA. Thin/frail/weak appearing. HEENT: No pallor, no icterus. Pupils equal, round and reactive to light. Oral mucosa moist. NECK: No JVD, no neck masses. HEART: S1 and S2 heard. Regular rate and rhythm. No murmur, no gallop. RESPIRATORY SYSTEM: Normal AP diameter. No accessory muscle use. No wheezing, b/b crackles. ABDOMEN: Soft, bowel sounds present, nontender, no distention. CENTRAL NERVOUS SYSTEM: No facial droop. Speech is clear. Obeys simple commands. Moves extremities. EXTREMITIES: No edema, no erythema seen. Results & Data Results & Data (MN) Vital Signs (Past 12 Hours) Vital Signs Temp Pulse Resp BP Pulse Ox O2 Del Method 05/28/22 11:14 36.4 C L 73 17 140/75 97 Room Air 05/28/22 07:03 36.7 C 73 16 184/97 H 97 Room Air
--- NOTE | 2022-05-28 19:35 | XRay Report ---
XR lumbar spine 2-3V CLINICAL HISTORY: Fall. COMPARISON STUDY: CT of the abdomen pelvis May 18, 2022. FINDINGS: Incidental note is made of oral contrast within the colon from recent modified barium swall ow. Alignment of the lumbar spine is anatomic. Vertebral body heights are maintained. No fracture is identified. Mild multilevel degenerative disc disease and moderate facet arthrosis is present. IMPRESSION: No acute lumbar spine fracture or subluxation. ACT 112: Negative or not required by law. Electronically signed by: Teo Galvan M.D. 05/28/2022 7:34 PM
--- NOTE | 2022-05-28 19:37 | XRay Report ---
XR pelvis 1-2V routine CLINICAL HISTORY: Fall. COMPARISON: CT of the abdomen and pelvis May 18, 2022. FINDINGS: No acute fracture within the pelvis or hips. Sacroiliac joints and symphysis pubis are int act. Oral contrast within the colon from recent modified barium swallow is incidentally noted. Hip randall int spaces are preserved. There is mild bilateral hip osteophytosis. Irregularity of the greater troc hanters is chronic. No evidence for avascular necrosis. Lucency projecting over the right femoral nec k is artifactual. IMPRESSION: No acute fracture within the pelvis or hips. ACT 112: Negative or not required by law. Electronically signed by: Teo Galvan M.D. 05/28/2022 7:36 PM
[2022-05-28] MEDS: CARBIDOPA/LEVODOPA 25/100MG EXT REL TAB PO SCH (20:12)
[2022-05-28] MEDS: LATANOPROST 0.005% OP SOLN 2.5 ML BTL OPB SCH (20:13)
[2022-05-29] MEDS: PANTOprazole 40 MG TAB PO SCH (09:41)
[2022-05-29] MEDS: DOCUSATE SODIUM 100 MG CAP PO SCH (09:41)
[2022-05-29] MEDS: guaiFENesin 600 MG TABCR PO SCH (09:41)
[2022-05-29] MEDS: LOSARTAN POTASSIUM 25 MG TAB PO SCH (09:41)
[2022-05-29] MEDS: CARBIDOPA/LEVODOPA 25/100MG TAB PO SCH ×2 (09:41→13:01)
[2022-05-29] MEDS: POLYETHYLENE (MIRALAX) 17 GM PACK PO SCH (09:41)
[2022-05-29] MEDS: ENOXAPARIN INJ 60 MG/0.6 ML SYR SQ SCH (09:41)
--- NOTE | 2022-05-29 12:57 | Discharge Summary ---
Date of Service May 29, 2022 Admission HPI Per Admitting Provider History obtained from patient, family, and records. 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 Last bowel movement was 2 days ago as per . Increasing weakness last night with slight confusion. Patient denies chest pain, SOB. Does not move a lot as per secondary to Parkinson's disease. Patient brought to the ER for evaluation. NGT inserted for bowel obstruction. IV heparin initiated for pulmonary embolism. 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 Admission Exam Per Admitting Provider GENERAL: Slightly uncomfortable, slightly hard of hearing, no respiratory distress SKIN: Normal color, warm HEENT: [place] palpebral conjunctivae, no ptosis, dry buccal mucosa, NGT in place NECK : Supple, no tenderness CHEST : CTA, no tenderness HEART : RRR, no obvious murmurs ABDOMEN: Some distention, central abdominal tenderness EXTREMITIES : Minimal LE swelling (right greater than the left ) without tenderness, no other conspicuous deformities noted NEUROLOGIC : Coherent, no facial asymmetry, slightly hard of hearing, pill- rolling tremors, bradykinesia, gait and stance not assessed Principal Diagnosis Acute pulmonary embolism Right lower extremity DVT Possible PE due to right femoral DVT Aspiration pneumonia Small bowel obstruction Failure to thrive Discharge Exam GENERAL: Alert and oriented x3. NAD, on RA. Thin/frail/weak appearing. HEENT: No pallor, no icterus. Pupils equal, round and reactive to light. Oral mucosa moist. NECK: No JVD, no neck masses. HEART: S1 and S2 heard. Regular rate and rhythm. No murmur, no gallop. RESPIRATORY SYSTEM: Normal AP diameter. No accessory muscle use. No wheezing, b/b crackles. ABDOMEN: Soft, bowel sounds present, nontender, no distention. CENTRAL NERVOUS SYSTEM: No facial droop. Speech is clear. Obeys simple commands. Moves extremities. EXTREMITIES: No edema, no erythema seen. Discharge Data Allergies Allergy/AdvReac Type Severity Reaction Status Date / Time No Known Allergies Allergy Verified 05/18/22 02:11 Consultations 05/18/22 01:20 ED Decision to Admit Stat 05/18/22 05:09 Consult General Surgery Routine 05/20/22 08:57 Consult Neurology Routine 05/20/22 09:09 Consult Top Precipitator Operator Routine 05/20/22 09:50 Consult Palliative Care Routine Ordered Studies 05/17/22 22:30 CT abd pelvis IV con only Urgent CT angio chest PE protocol Urgent 05/17/22 22:33 CT head/brain wo con Urgent 05/18/22 03:02 US venous doppler LE BI Routine 05/19/22 10:28 CT head/brain wo con Urgent 05/20/22 08:55 CT head/brain wo con Stat 05/25/22 07:00 FL video swallow Routine Hospital Course (1) Pulmonary embolism: 82-year-old gentleman with PMH of Parkinson's disease, old 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 He is being managed for the following: Acute Pulmonary Embolism Right lower extremity DVT Possible PE due to right femoral DVT --CTA Chest showed Extensive right main, lobar, segmental, and subsegmental pulmonary emboli --Venous Doppler: Occlusive thrombus seen within the right superficial femoral, popliteal, and peroneal veins. The left deep venous structures appear patent. --ECHO: Normal LV chamber size with mild concentric LVH. Normal LV systolic function, EF 60 to 65%. No segmental left ventricle wall motion abnormality noted. Grade 1 diastolic dysfunction. Right ventricle cavity size is normal. Right ventricle systolic function is borderline reduced. Mild mitral regurgitation. Borderline pulmonary hypertension with a PA systolic pressure of 41 mmHg assuming a right atrial pressure of 3 mmHg. Was started on IV heparin drip, switched to Lovenox --> Eliquis cost 176 dollars per month, Pt's made aware and is agreeable to cost. Eliquis on DC. Currently on RA, and hemodynamically stable. Continue current management Aspiration pneumonia Patient afebrile since after 05/21. Unasyn was started. 07/26 videofluoroscopic swallow eval with few episodes of trace aspiration with the thin liquid barium. Speech evaluated, appreciate recommendation. Supervised meals, meals when fully alert and upright, give medicines in a carrier, oral hygiene, single bites/small sips/slow rate. No straws. Alternate solids and liquids. Maintain reflux precautions with alternating solid and liquid/HOB 30 degrees all the time/upright with meals for 30+ minute. WBC WNL, s/p Unasyn course. Small bowel obstruction --05/17 CT ABD:Findings consistent with a high-grade small bowel obstruction. Multiple transition points within the right lower quadrant. Moderate wall thickening of several ileal loops with associated mesenteric stranding and interloop fluid/ascites. A closed loop small bowel obstruction with bowel ischemia cannot be excluded. No pneumatosis, portal venous gas or free air. -- f/u KUB XR other dates: persistent SBO. --f/u KUB XR 05/21: Gas-distended loops of small bowel measure up to 41 mm in diameter. These are stable to minimally decreased from prior exam compatible with continuing small bowel obstruction. -- NG tube removed 05/22, patient with improvement in belly pain after NGT removed per records. Surgery evaluated, appreciate recs Pt moved bowel 05/28, f/u XR KUB 05/27 w/ improvement in bowel gas pattern. c/w Low fiber diet. c/w Bowel regimen. Failure to thrive - pt barely responsive for several days early in admission, not answering questions, hardly following any commands - seen by forensic specialist, surgery, neurology, appreciate their input - per forensic specialist - palliative med. recommended, and they were consulted, appreciate their input - mental status improved, still w/ poor appetite. -Speech and Nutrition evaled, appreciate recs. Troponin elevation: Likely type II [place] secondary to PE. Other chronic medical conditions: History of CVA, GERD, prediabetes [A1c of 5.9 in February 2022] --resume home meds as able. DVT prophylaxis: On Lovenox subcu therapeutic dose Code Status - DNR/DNI. Patient being discharged to [facility] with following instruction at the point of discharge: Follow-up with your primary care physician within a week time and likely you will need blood test CBC/CMP/magnesium/phosphorus level. For your blood clot, you are being started on Eliquis, you are supposed to take 10 mg twice a day for for 7 days followed by 5 mg twice a day thereafter. For your small bowel obstruction while in hospital, it has gotten better, recommend to continue with low fiber diet for next 2 to 3 weeks and then slowly go back to your regular diet. Continue to use over the counter laxatives and stool softeners to maintain regular bowel movements. Maintain aspiration precautions: Supervised meals, meals when fully alert and upright, give medicines in a carrier, oral hygiene, single bites/small sips/slow rate. No straws. Alternate solids and liquids. Maintain reflux precautions with alternating solid and liquid/HOB 30 degrees all the time/upright with meals for 30+ minute. Because your blood pressure were on the higher side while in hospital, you are started on blood pressure medication losartan 25 mg daily. Follow-up with your primary care physician for ongoing management of your blood pressure. Establish and maintain follow up with palliative care as outpatient. Take your medications as prescribed. Home Health Attestation I certify that this patient is under my care and that I, or a physicians law office assistant working with me, had a face to-face encounter that meets the home health [id number] encounter requirements with this patient. The encounter with the patient was in whole, or in part, for the following medical condition, which is the primary reason for home health care (list medical condition): I certify that, based on my findings, the following services are medically necessary home health services: My clinical findings support the need for the above services because: Further, I certify that my clinical findings support that this patient is homebound (i.e. absences from home require considerable and taxing effort and are for medical reasons or scientologist services or infrequently or of short duration when for other reasons) because: Certification for Home Health Services: Based on the above findings, I certify that this patient is confined to the home and needs intermittent mcc care, physical therapy and/or speech therapy or continues to need occupational therapy. The patient is under my care, and I have initiated the establishment of the plan of care. This patient will be followed by a physician who will periodically review the plan of care. Total Time Total Time Spent Total Time Spent (In Minutes): 45 Discharge Plan Discharge Items Patient Disposition: Transfer Care Home Fac Reason For Visit: PE WITH STRAIN, SBO Discharge Diagnosis: Acute pulmonary embolism Right lower extremity DVT Possible PE due to right femoral DVT Aspiration pneumonia Small bowel obstruction Failure to thrive Activity: Resume your previous activity Non-emergency contact: Primary Care Provider Call non-emergency contact if: you have any medication questions and your pain is not controlled Follow-up/Referrals: Oleksandr Figueroa, [Primary Care Provider] - Diet: Heart Healthy and Low Fiber Addtl Attending Provider Instructions: Follow-up with your primary care physician within a week time and likely you will need blood test CBC/CMP/magnesium/phosphorus level. For your blood clot, you are being started on Eliquis, you are supposed to take 10 mg twice a day for for 7 days followed by 5 mg twice a day thereafter. For your small bowel obstruction while in hospital, it has gotten better, recommend to continue with low fiber diet for next 2 to 3 weeks and then slowly go back to your regular diet. Continue to use over the counter laxatives and stool softeners to maintain regular bowel movements. Maintain aspiration precautions: Supervised meals, meals when fully alert and upright, give medicines in a carrier, oral hygiene, single bites/small sips/slow rate. No straws. Alternate solids and liquids. Maintain reflux precautions with alternating solid and liquid/HOB 30 degrees all the time/upright with meals for 30+ minute. Because your blood pressure were on the higher side while in hospital, you are started on blood pressure medication losartan 25 mg daily. Follow-up with your primary care physician for ongoing management of your blood pressure. Establish and maintain follow up with palliative care as outpatient. Take your medications as prescribed. Pending Studies at Discharge: No Stand-Alone Forms: My [facility] Phone [facility] Skilled Items Patient informed of condition?: Yes DNR: Yes Discharge Level of Care: Skilled Communicable Disease: No Discharge Prognosis: Stable Lines: None Urinary Catheter: No Medications and DC Order Prescriptions: New Eliquis 5 mg tablet See Rx Instructions .ROUTE .COMPLEX Qty: 74 0RF Rx Instructions: 5 mg orally ;2 tablet twice a day for 7 days followed by 1 tab twice a day thereafter. losartan 25 mg Tablet 25 mg PO QAM Qty: 30 0RF docusate sodium 100 mg Capsule 100 mg PO BID Qty: 30 0RF guaifenesin [Mucinex] 600 mg Tablet Extended Release 12hr 1,200 mg PO Q12 5 Days Qty: 20 0RF Continued latanoprost 0.005 % drops 1 drp OPB HS calcium carbonate [Calcium 500] 500 mg calcium (1,250 mg) Tablet 500 mg PO DAILY Men's 50 Plus Multivitamin 400-20-370 mcg Tablet 1 tab PO DAILY sennosides [senna] 8.6 mg Tablet 8.6 mg PO DAILY carbidopa-levodopa 25-100 mg tablet extended release 1 tab PO HS polyethylene glycol 3350 [Miralax] 17 gram Powder In Packet 17 g PO DAILY omeprazole 20 mg capsule,delayed release(DR/EC) 20 mg PO DAILYBB Qty: 30 0RF carbidopa-levodopa 25-100 mg tablet 2 tab PO TID Qty: 180 0RF Rx Instructions: Breakfast , lunch & dinner Belsomra 5 mg tablet 5 mg PO HS PRN (Reason: Insomnia) Qty: 7 0RF Discontinued ascorbic acid (vitamin C) [Vitamin C] 500 mg Tablet 500 mg PO DAILY [place]set 3-6-9 1,200 mg Capsule 1 cap PO DAILY saw palmetto 450 mg Capsule 0 mg PO DAILY Rx Instructions: PT'S SPOUSE UNSURE OF STRENGTH. Discharge Orders: Discharge Order (Routine); Ordered 05/29/22 Ordered By: Kirby Osullivan Admission Data Admit Date/Time: 05/18/22 02:59 Attending Provider: Kirby Osullivan Admit Provider: Jose Rafael Dumont Primary Care Provider: Oleksandr Figueroa Other Providers: Jose Rafael Dumont ; Chele Neff ; Vincenzo Moses ; Belkis Barney ; Estefania Nixon ; Santiago Campbell ; Jaron Rodney ; Pricilla Mercer ; Jeanne Leong ; Juan Little Jr ; Bronson Munroe ; Scout Rossi ; Gavi Tan ; Molina Bergman ; Moses John ; Leonardo Fitch ; Krissy Tyson
== END 2022-05-29 15:22 | DRG 280 ==
LOC: ED 20:05 → 2E 05-18 02:59 → SUATTDRO 05-18 02:59 → 2E 05-18 04:31